=== PATIENT | female | born 1970 | race African-American/Black ===

== ENCOUNTER 2017-09-07 18:51 | Inpatient (IN) | payer MEDICAID ==
[~2017-09-07] VITALS: Ht 162.6 cm; Wt 66.8 kg
[~2017-09-07 18:51] MED LIST: MACR100 PO; OLAN10TA3 PO; SERT100T12 PO
[2017-09-07 20:51] LABS: EOSINOPHILS % (AUTO) 1.7 % (1.0-6.0); HEMOGLOBIN 12.9 g/dL (12.0-16.0); LYMPHOCYTES # (AUTO) 1.5 K/uL (1.0-4.8); LYMPHOCYTES % (AUTO) 23.3 % (22.0-44.0); MEAN CORPUSCULAR HEMOGLOBIN 31.8 pg (26.0-34.0); MEAN CORPUSCULAR HGB CONC 33.8 G/dL (31.0-37.0); MEAN CORPUSCULAR VOLUME 94 fL (80-100); MONOCYTES # (AUTO) 0.6 K/uL (0.1-1.0); MONOCYTES % (AUTO) 9.4 % (2.0-9.0); NEUTROPHILS # (AUTO) 4.1 K/uL (1.8-7.7); NEUTROPHILS % (AUTO) 64.6 % (40.0-70.0); PLATELET COUNT (AUTO) 431 K/uL (150-450); RED BLOOD CELL COUNT(AUTO) 4.05 MIL/uL (4.00-5.20)
[2017-09-07 21:10] LABS: ANION GAP 12 mmol/L (8-16); CALCIUM, TOTAL 9.3 mg/dL (8.8-10.5); CARBON DIOXIDE 28 mmol/L (22-29); CHLORIDE 101 mmol/L (98-107); CREATININE 0.65 mg/dL (0.60-1.30); GLOMERULAR FILTR. RATE CALC > 60 mL/min (>60); GLUCOSE,RANDOM 112 mg/dL (70-110); POTASSIUM 3.9 mmol/L (3.5-5.1); SODIUM SERUM 141 mmol/L (136-145); UREA NITROGEN, BLOOD 4 mg/dL (7-18)
[2017-09-07 21:11] LABS: AMPHET/METH SCREEN,URINE POSITIVE (NEGATIVE); BARBITURATE SCREEN, URINE NEGATIVE (NEGATIVE); BENZODIAZEPINES SCREEN,URINE NEGATIVE (NEGATIVE); CANNABINOID SCREEN,URINE POSITIVE (NEGATIVE); COCAINE SCREEN,URINE NEGATIVE (NEGATIVE); METHADONE SCREEN, URINE NEGATIVE (NEGATIVE); OPIATE SCREEN,URINE NEGATIVE (NEGATIVE)
[2017-09-07 21:19] LABS: ALANINE AMINOTRANSFERASE 21 U/L (12-78); ALKALINE PHOSPHATASE 76 U/L (46-116); ASPARTATE AMINOTRANSFERASE 14 U/L (15-37); BILIRUBIN,TOTAL 0.1 mg/dL (0.1-1.0); TOTAL PROTEIN, SERUM 7.8 g/dL (6.4-8.2)
[2017-09-07 21:23] LABS: PHENCYCLIDINE SCREEN,URINE NEGATIVE (NEGATIVE)
[2017-09-07] MEDS ORDERED: ZOLPIDEM TARTRATE 10 MG TABLET PO PRN (22:15)
[2017-09-07] MEDS ORDERED: ACETAMINOPHEN 500 MG TABLET PO ONE (23:00)
[2017-09-07] MEDS ORDERED: LORazepam 2 MG TABLET PO ONE (23:00)
[2017-09-07] MEDS ORDERED: ASPIRIN 81 MG CHEWABLE TABLET PO ONE (23:00)
[2017-09-08 01:44] VITALS: BP 134/88
[2017-09-08] MEDS ORDERED: MAGNESIUM HYDROXIDE SUSPENSION 30 ML UDCUP PO PRN (07:30)
[2017-09-08] MEDS ORDERED: ALBUTEROL SULFATE HFA 90 MCG/PUFF 8 GM INHALER IH PRN (07:30)
[2017-09-08] MEDS ORDERED: LOPERAMIDE HCL 2 MG CAPSULE PO PRN (07:30)
[2017-09-08] MEDS ORDERED: CloNIDine HCL 0.1 MG TABLET PO PRN (07:30)
[2017-09-08] MEDS ORDERED: PETROLATUM,WHITE 71 GM JELLY TP PRN (07:30)
[2017-09-08] MEDS ORDERED: ONDANSETRON HCL 4 MG TABLET PO PRN (07:30)
[2017-09-08] MEDS ORDERED: MAG HYDROX/AL HYDROX/SIMETH ES 30 ML SUSPENSION UDCUP PO PRN (07:30)
[2017-09-08] MEDS ORDERED: ACETAMINOPHEN 325 MG TABLET PO PRN (07:30)
[2017-09-08] MEDS ORDERED: BENZOCAINE/MENTHOL LOZENGE [8 LOZENGES/PACKET] MM PRN (07:30)
[2017-09-08] MEDS ORDERED: BACITRACIN 28.4 GM OINTMENT TP PRN (07:30)
[2017-09-08 08:05] VITALS: BP 120/86
[2017-09-08] MEDS: LORazepam 2 MG TABLET PO PRN ×2 (09:20→15:09)
[2017-09-08 10:20] LABS: BILIRUBIN,URINE NEGATIVE (NEGATIVE); GLUCOSE, URINE (UA) NEGATIVE (NEGATIVE); KETONES,URINE NEGATIVE (NEGATIVE); LEUKOCYTE ESTERASE ,URINE SMALL (NEGATIVE); NITRATE,URINE NEGATIVE (NEGATIVE); OCCULT BLOOD,URINE NEGATIVE (NEGATIVE); PROTEIN,URINE NEGATIVE (NEGATIVE); UROBILINOGEN,URINE 0.2 mg/dL (<=1.0)
[2017-09-08 11:18] LABS: APPEARANCE,URINE HAZY (CLEAR)
[2017-09-08 11:20] LABS: RBC,URINE None Seen /HPF (0-2)
[2017-09-08 11:21] LABS: BACTERIA,URINE Few /HPF (None Seen); SQUAMOUS EPITHELIAL CELL,UR Few /LPF (None Seen)
[2017-09-08] MEDS: IBUPROFEN 600 MG TABLET PO PRN (16:54)
[2017-09-08 16:55] VITALS: BP 121/72
[2017-09-08] MEDS: OLANZapine 10 MG TABLET PO SCH (21:38)
[2017-09-09] MEDS: LORazepam 2 MG TABLET PO PRN ×2 (08:05→17:17)
[2017-09-09] MEDS: SERTRALINE HCL 50 MG TABLET PO SCH (08:06)
[2017-09-09] MEDS: NICOTINE 14 MG/24 HOUR PATCH TD SCH ×3 (09:00→10:49)
[2017-09-09 10:10] VITALS: BP 131/84
[2017-09-09 16:14] VITALS: BP 97/59
[2017-09-09] MEDS: IBUPROFEN 600 MG TABLET PO PRN (17:18)
[2017-09-09] MEDS: OLANZapine 10 MG TABLET PO SCH (20:26)
[2017-09-10] MEDS: NICOTINE 14 MG/24 HOUR PATCH TD SCH (09:22)
[2017-09-10] MEDS: SERTRALINE HCL 50 MG TABLET PO SCH (09:24)
[2017-09-10] MEDS: LORazepam 2 MG TABLET PO PRN ×2 (09:26→17:29)
[2017-09-10 09:54] VITALS: BP 112/58
[2017-09-10 17:30] VITALS: BP 113/65
[2017-09-10] MEDS: IBUPROFEN 600 MG TABLET PO PRN (17:30)
[2017-09-10] MEDS: OLANZapine 10 MG TABLET PO SCH (20:53)
[2017-09-11 09:00] VITALS: BP 111/60
[2017-09-11] MEDS: HALOPERIDOL 5 MG TABLET PO PRN ×2 (09:01→16:32)
[2017-09-11] MEDS: SERTRALINE HCL 50 MG TABLET PO SCH (09:01)
[2017-09-11] MEDS: LORazepam 2 MG TABLET PO PRN ×2 (09:01→16:32)
[2017-09-11] MEDS: NICOTINE 14 MG/24 HOUR PATCH TD SCH (09:03)
[2017-09-11 12:04] VITALS: BP 101/62
[2017-09-11] MEDS: IBUPROFEN 600 MG TABLET PO PRN (12:06)
[2017-09-11 13:06] VITALS: BP 110/64
[2017-09-11 19:06] VITALS: BP 110/69
[2017-09-11] MEDS: OLANZapine 10 MG TABLET PO SCH (21:37)
[2017-09-12 08:00] VITALS: BP 97/58
[2017-09-12 10:10] VITALS: BP 118/82
[2017-09-12] MEDS: HALOPERIDOL 5 MG TABLET PO PRN ×2 (10:11→16:52)
[2017-09-12] MEDS: IBUPROFEN 600 MG TABLET PO PRN (10:11)
[2017-09-12] MEDS: SERTRALINE HCL 100 MG TABLET PO SCH (10:11)
[2017-09-12] MEDS: LORazepam 2 MG TABLET PO PRN ×2 (10:11→16:52)
[2017-09-12] MEDS: NICOTINE 14 MG/24 HOUR PATCH TD SCH (10:14)
[2017-09-12] MEDS: AMOXICILLIN TRIHYDRATE 250 MG CAPSULE PO SCH ×3 (12:32→23:54)
[2017-09-12 18:23] VITALS: BP 105/62
[2017-09-12] MEDS: OLANZapine 10 MG TABLET PO SCH (20:48)
[2017-09-13 09:05] VITALS: BP 104/64
[2017-09-13] MEDS: SERTRALINE HCL 100 MG TABLET PO SCH (09:05)
[2017-09-13] MEDS: AMOXICILLIN TRIHYDRATE 250 MG CAPSULE PO SCH ×2 (09:05→16:30)
[2017-09-13] MEDS: IBUPROFEN 600 MG TABLET PO PRN ×2 (09:06→16:31)
[2017-09-13] MEDS: NICOTINE 14 MG/24 HOUR PATCH TD SCH (09:06)
[2017-09-13] MEDS: HALOPERIDOL 5 MG TABLET PO PRN ×2 (09:06→16:30)
[2017-09-13] MEDS: LORazepam 2 MG TABLET PO PRN ×2 (09:06→16:31)
[2017-09-13 10:00] VITALS: BP 104/64
[2017-09-13 16:46] VITALS: BP 135/80
[2017-09-13] MEDS: OLANZapine 10 MG TABLET PO SCH (20:55)
[2017-09-14] MEDS: AMOXICILLIN TRIHYDRATE 250 MG CAPSULE PO SCH ×2 (00:01→08:57)
[2017-09-14 08:55] VITALS: BP 117/82
[2017-09-14] MEDS: SERTRALINE HCL 100 MG TABLET PO SCH (08:57)
[2017-09-14] MEDS: HALOPERIDOL 5 MG TABLET PO PRN (08:58)
[2017-09-14] MEDS: IBUPROFEN 600 MG TABLET PO PRN (08:58)
[2017-09-14] MEDS: LORazepam 2 MG TABLET PO PRN (08:58)
[2017-09-14] MEDS: NICOTINE 14 MG/24 HOUR PATCH TD SCH (08:59)
[2017-09-14] MEDS ORDERED: SERT100T12 PO (12:24)
[2017-09-14] MEDS ORDERED: AMOX250C4 PO ×2 (12:25→12:29)
[2017-09-14] MEDS ORDERED: CARB15DR47 OT (12:28)
[2017-09-17] MEDS ORDERED: CARBAMIDE PEROXIDE 6.5% 15 ML OTIC SOLUTION AS SCH (09:00)
== END 2017-09-14 13:45 | disposition home or self-care (01) | DRG 750 ==
LOC: EMS 18:54 → 3EI 22:41
PROVIDERS: ADMIT Psychiatry & Neurology Psychiatry; ATTEND Psychiatry & Neurology Psychiatry
DX: F25.1 Schizoaffective disorder, depressive type (principal); F15.20 Other stimulant dependence, uncomplicated; F41.9 Anxiety disorder, unspecified; G47.00 Insomnia, unspecified; F17.210 Nicotine dependence, cigarettes, uncomplicated; F12.20 Cannabis dependence, uncomplicated; F10.20 Alcohol dependence, uncomplicated; Z79.899 Other long term (current) drug therapy
CPT/HCPCS: 87081; 87086; 93005; 99285; 99406; G0480

== ENCOUNTER 2017-11-02 06:05 | Emergency (ER) | payer MEDICAID ==
[~2017-11-02] VITALS: Ht 160 cm; Wt 68.2 kg
[~2017-11-02 06:05] MED LIST changes: +AMOX250C4 PO; +CARB15DR47 OT; -MACR100 PO
[2017-11-02] MEDS ORDERED: FLUO-191 PO (06:11)
[2017-11-02 06:34] VITALS: BP 137/87
== END 2017-11-02 06:52 | disposition home or self-care (01) ==
LOC: EMS 06:06
DX: F10.239 Alcohol dependence with withdrawal, unspecified (principal); F17.210 Nicotine dependence, cigarettes, uncomplicated; Y90.9 Presence of alcohol in blood, level not specified
CPT/HCPCS: 99283; 99406

== ENCOUNTER 2019-03-10 10:36 | Emergency (ER) | payer MEDICAID ==
[~2019-03-10] VITALS: Ht 157.5 cm; Wt 100.0 kg
[~2019-03-10 10:36] MED LIST changes: -AMOX250C4 PO; -CARB15DR47 OT; +FLUO-191 PO; -SERT100T12 PO
[2019-03-10] MEDS ORDERED: SERT100T12 PO (10:42)
[2019-03-10] MEDS ORDERED: SODIUM CHLORIDE 0.9% 1,000 ML IV ONE (11:30)
[2019-03-10] MEDS ORDERED: MORPHINE SULFATE 4 MG/ML SYRINGE IVP ONE (11:30)
[2019-03-10] MEDS ORDERED: AMPICILLIN SODIUM/SULBACTAM NA 3 GM in SODIUM CHLORIDE 0.9% 100 ML IV ONE (11:30)
[2019-03-10] MEDS ORDERED: IOVERSOL 350 MG/ML 150 ML VIAL ONE (11:51)
[2019-03-10 12:00] LABS: BASOPHILS % (AUTO) 1.3 % (0.0-2.0); EOSINOPHILS % (AUTO) 3.2 % (1.0-6.0); HEMOGLOBIN 11.6 g/dL (12.0-16.0); LYMPHOCYTES # (AUTO) 1.8 K/uL (1.0-4.8); LYMPHOCYTES % (AUTO) 30.3 % (22.0-44.0); MEAN CORPUSCULAR HEMOGLOBIN 28.9 pg (26.0-34.0); MEAN CORPUSCULAR HGB CONC 32.1 G/dL (31.0-37.0); MEAN CORPUSCULAR VOLUME 90 fL (80-100); MONOCYTES # (AUTO) 0.5 K/uL (0.1-1.0); MONOCYTES % (AUTO) 8.8 % (2.0-9.0); NEUTROPHILS # (AUTO) 3.3 K/uL (1.8-7.7); NEUTROPHILS % (AUTO) 56.4 % (40.0-70.0); PLATELET COUNT (AUTO) 368 K/uL (150-450)
[2019-03-10 12:13] LABS: ANION GAP 8 mmol/L (8-16); CALCIUM, TOTAL 9.2 mg/dL (8.8-10.5); CARBON DIOXIDE 26 mmol/L (22-29); CHLORIDE 104 mmol/L (98-107); CREATININE 0.87 mg/dL (0.60-1.30); GLOMERULAR FILTR. RATE CALC > 60 mL/min (>60); GLUCOSE,RANDOM 81 mg/dL (70-110); SODIUM SERUM 138 mmol/L (136-145); UREA NITROGEN, BLOOD 5 mg/dL (7-18)
[2019-03-10 12:29] LABS: HCG,QUANTITATIVE < 1 mIU/mL (0-6)
[2019-03-10 14:16] VITALS: BP 121/80
== END 2019-03-10 14:19 | disposition home or self-care (01) ==
LOC: EMS 10:38
DX: L03.211 Cellulitis of face (principal); F41.9 Anxiety disorder, unspecified; F31.9 Bipolar disorder, unspecified; F20.9 Schizophrenia, unspecified; F17.210 Nicotine dependence, cigarettes, uncomplicated
CPT/HCPCS: 36415; 70487; 80048; 84702; 85025; 96365; 96375; 99284; 99406; J0295; J2270; J7030; J7050; Q9967

== ENCOUNTER 2019-07-07 08:00 | Emergency (ER) | payer MEDICAID ==
[~2019-07-07] VITALS: Ht 162.6 cm; Wt 77.0 kg
[~2019-07-07 08:00] MED LIST changes: -FLUO-191 PO; +SERT100T12 PO
[2019-07-07] MEDS ORDERED: RANITIDINE HCL 150 MG TABLET PO ONE (11:00)
[2019-07-07] MEDS ORDERED: BACITRACIN 0.9 GM PACKET OINTMENT TP ONE (11:00)
[2019-07-07] MEDS ORDERED: ACETAMINOPHEN 500 MG TABLET PO ONE (11:00)
[2019-07-07 11:15] VITALS: BP 131/84
== END 2019-07-07 11:25 | disposition home or self-care (01) ==
LOC: EMS 08:01
DX: S00.81XA Abrasion of other part of head, initial encounter (principal); I88.8 Other nonspecific lymphadenitis; G47.00 Insomnia, unspecified; F31.9 Bipolar disorder, unspecified; F41.9 Anxiety disorder, unspecified; F20.9 Schizophrenia, unspecified; F17.210 Nicotine dependence, cigarettes, uncomplicated; Z76.0 Encounter for issue of repeat prescription; Z79.899 Other long term (current) drug therapy; X58.XXXA Exposure to other specified factors, initial encounter; Y93.89 Activity, other specified; Y92.89 Other specified places as the place of occurrence of the external cause; Y99.8 Other external cause status
CPT/HCPCS: 99406

== ENCOUNTER 2019-08-10 08:10 | Emergency (ER) | payer MEDICAID ==
[~2019-08-10] VITALS: Ht 157.5 cm; Wt 72.7 kg
[2019-08-10 08:12] VITALS: BP 154/98
[2019-08-10] MEDS ORDERED: KETOROLAC TROMETHAMINE 30 MG/ML VIAL IM ONE (08:30)
[2019-08-10] MEDS ORDERED: HYDROCODONE/ACETAMINOPHEN 5-325 MG TABLET PO ONE (08:30)
== END 2019-08-10 09:02 | disposition home or self-care (01) ==
LOC: EMS 08:10
DX: K08.89 Other specified disorders of teeth and supporting structures (principal); G47.00 Insomnia, unspecified; F41.9 Anxiety disorder, unspecified; F31.9 Bipolar disorder, unspecified; F20.9 Schizophrenia, unspecified; Z79.899 Other long term (current) drug therapy
CPT/HCPCS: 96372; 99283; J1885

== ENCOUNTER 2019-11-08 03:41 | Emergency (ER) | payer MEDICAID ==
[~2019-11-08] VITALS: Ht 152.4 cm; Wt 68.2 kg
[2019-11-08] MEDS ORDERED: LORazepam 2 MG/ML VIAL IVP ONE (04:30)
[2019-11-08 05:05] LABS: BASOPHILS % (AUTO) 0.8 % (0.0-2.0); EOSINOPHILS % (AUTO) 1.5 % (1.0-6.0); HEMATOCRIT 37.6 % (36-46); HEMOGLOBIN 12.7 g/dL (12.0-16.0); LYMPHOCYTES % (AUTO) 17.7 % (22.0-44.0); MEAN CORPUSCULAR HEMOGLOBIN 32.4 pg (26.0-34.0); MEAN CORPUSCULAR HGB CONC 33.9 G/dL (31.0-37.0); MEAN CORPUSCULAR VOLUME 96 fL (80-100); MONOCYTES # (AUTO) 0.5 K/uL (0.1-1.0); MONOCYTES % (AUTO) 9.1 % (2.0-9.0); NEUTROPHILS # (AUTO) 3.9 K/uL (1.8-7.7); NEUTROPHILS % (AUTO) 70.9 % (40.0-70.0); PLATELET COUNT (AUTO) 364 K/uL (150-450); RED BLOOD CELL COUNT(AUTO) 3.92 MIL/uL (4.00-5.20); RED CELL DISTRIBUTION WIDTH 15.3 % (11.5-14.5)
[2019-11-08 05:16] LABS: ANION GAP 7 mmol/L (8-16); CALCIUM, TOTAL 8.9 mg/dL (8.8-10.5); CARBON DIOXIDE 30 mmol/L (22-29); CHLORIDE 102 mmol/L (98-107); CREATININE 0.83 mg/dL (0.60-1.30); GLOMERULAR FILTR. RATE CALC > 60 mL/min (>60); GLUCOSE,RANDOM 106 mg/dL (70-110); POTASSIUM 3.3 mmol/L (3.5-5.1); SODIUM SERUM 139 mmol/L (136-145); UREA NITROGEN, BLOOD 10 mg/dL (7-18)
[2019-11-08 05:28] LABS: ALANINE AMINOTRANSFERASE 58 U/L (12-78); ALBUMIN 3.6 g/dL (3.4-5.0); ALKALINE PHOSPHATASE 95 U/L (46-116); ASPARTATE AMINOTRANSFERASE 64 U/L (15-37); BILIRUBIN,TOTAL 0.7 mg/dL (0.1-1.0); HCG,QUANTITATIVE < 1 mIU/mL (0-6); TOTAL PROTEIN, SERUM 7.4 g/dL (6.4-8.2)
[2019-11-08 06:00] VITALS: BP 135/92
== END 2019-11-08 06:53 | disposition home or self-care (01) ==
LOC: EMS 03:42
DX: R07.89 Other chest pain (principal); R06.02 Shortness of breath; F41.9 Anxiety disorder, unspecified; F20.9 Schizophrenia, unspecified; F31.9 Bipolar disorder, unspecified; F17.210 Nicotine dependence, cigarettes, uncomplicated; F19.90 Other psychoactive substance use, unspecified, uncomplicated
CPT/HCPCS: 36415; 71045; 80053; 84484; 84702; 85025; 85379; 93005; 96374; 99285; 99406; G0480; J2060

== ENCOUNTER 2019-12-11 10:49 | Emergency (ER) | payer MEDICAID ==
[~2019-12-11] VITALS: Ht 162.6 cm; Wt 56.8 kg
[2019-12-11 11:42] LABS: BASOPHILS % (AUTO) 1.1 % (0.0-2.0); EOSINOPHILS % (AUTO) 2.2 % (1.0-6.0); HEMATOCRIT 36.7 % (36-46); HEMOGLOBIN 12.4 g/dL (12.0-16.0); LYMPHOCYTES # (AUTO) 1.6 K/uL (1.0-4.8); LYMPHOCYTES % (AUTO) 34.9 % (22.0-44.0); MEAN CORPUSCULAR HEMOGLOBIN 33.2 pg (26.0-34.0); MEAN CORPUSCULAR HGB CONC 33.8 G/dL (31.0-37.0); MEAN CORPUSCULAR VOLUME 98 fL (80-100); MONOCYTES # (AUTO) 0.4 K/uL (0.1-1.0); NEUTROPHILS # (AUTO) 2.4 K/uL (1.8-7.7); NEUTROPHILS % (AUTO) 52.8 % (40.0-70.0); PLATELET COUNT (AUTO) 435 K/uL (150-450); RED BLOOD CELL COUNT(AUTO) 3.74 MIL/uL (4.00-5.20); RED CELL DISTRIBUTION WIDTH 15.2 % (11.5-14.5)
[2019-12-11 11:55] LABS: D-DIMER 0.71 mg/L FEU (0.00-0.50); PROTHROMBIN TIME 10.5 SEC (9.4-11.6)
[2019-12-11 12:07] LABS: B-TYPE NATRIURETIC PEPTIDE 5 pg/mL (0-100)
[2019-12-11] MEDS ORDERED: LORazepam 2 MG/ML VIAL IVP ONE (12:15)
[2019-12-11 12:19] LABS: ALANINE AMINOTRANSFERASE 28 U/L (12-78); ALBUMIN 3.3 g/dL (3.4-5.0); ALKALINE PHOSPHATASE 92 U/L (46-116); ANION GAP 11 mmol/L (8-16); ASPARTATE AMINOTRANSFERASE 24 U/L (15-37); BILIRUBIN,TOTAL 0.3 mg/dL (0.1-1.0); CALCIUM, TOTAL 8.1 mg/dL (8.8-10.5); CARBON DIOXIDE 27 mmol/L (22-29); CHLORIDE 105 mmol/L (98-107); GLOMERULAR FILTR. RATE CALC > 60 mL/min (>60); GLUCOSE,RANDOM 111 mg/dL (70-110); HCG,QUANTITATIVE < 1 mIU/mL (0-6); SODIUM SERUM 143 mmol/L (136-145); UREA NITROGEN, BLOOD 6 mg/dL (7-18)
[2019-12-11] MEDS ORDERED: IOVERSOL 350 MG/ML 100 ML VIAL ONE (12:27)
[2019-12-11] MEDS ORDERED: SODIUM CHLORIDE 0.9% 100 ML ONE (12:27)
[2019-12-11 13:13] LABS: APPEARANCE,URINE CLEAR (CLEAR); BILIRUBIN,URINE NEGATIVE (NEGATIVE); GLUCOSE, URINE (UA) NEGATIVE (NEGATIVE); KETONES,URINE NEGATIVE (NEGATIVE); LEUKOCYTE ESTERASE ,URINE NEGATIVE (NEGATIVE); NITRATE,URINE NEGATIVE (NEGATIVE); OCCULT BLOOD,URINE NEGATIVE (NEGATIVE); PH,URINE 6.5 (5.0-8.0); PROTEIN,URINE NEGATIVE (NEGATIVE)
[2019-12-11 13:23] VITALS: BP 138/80
== END 2019-12-11 13:45 | disposition home or self-care (01) ==
LOC: EMS 10:54
DX: R07.9 Chest pain, unspecified (principal); F41.9 Anxiety disorder, unspecified; F31.9 Bipolar disorder, unspecified; F20.9 Schizophrenia, unspecified; F17.210 Nicotine dependence, cigarettes, uncomplicated; F19.90 Other psychoactive substance use, unspecified, uncomplicated; Z03.818 Encounter for observation for suspected exposure to other biological agents ruled out
CPT/HCPCS: 36415; 71045; 71275; 80053; 81003; 83880; 84484; 84702; 85025; 85379; 85610; 93005; 96374; 99285; J2060; J7050; Q9967; U0003

== ENCOUNTER 2019-12-18 23:28 | Inpatient (IN) | payer MEDICAID ==
[~2019-12-18] VITALS: Ht 157.5 cm; Wt 70.3 kg
[2019-12-19] VITALS (8 sets, daily range): BP systolic 97–138; BP diastolic 58–93
[2019-12-19] MEDS ORDERED: CALCIUM GLUCONATE 100 MG/ML 10 ML IVP ONE
[2019-12-19 00:36] LABS: BASOPHILS % (AUTO) 0.8 % (0.0-2.0); EOSINOPHILS % (AUTO) 0.3 % (1.0-6.0); HEMATOCRIT 38.8 % (36-46); LYMPHOCYTES # (AUTO) 1.4 K/uL (1.0-4.8); LYMPHOCYTES % (AUTO) 21.2 % (22.0-44.0); MEAN CORPUSCULAR HEMOGLOBIN 32.7 pg (26.0-34.0); MEAN CORPUSCULAR HGB CONC 33.5 G/dL (31.0-37.0); MEAN CORPUSCULAR VOLUME 98 fL (80-100); MONOCYTES # (AUTO) 0.8 K/uL (0.1-1.0); MONOCYTES % (AUTO) 11.3 % (2.0-9.0); NEUTROPHILS # (AUTO) 4.5 K/uL (1.8-7.7); NEUTROPHILS % (AUTO) 66.4 % (40.0-70.0); PLATELET COUNT (AUTO) 340 K/uL (150-450); RED BLOOD CELL COUNT(AUTO) 3.97 MIL/uL (4.00-5.20); RED CELL DISTRIBUTION WIDTH 15.7 % (11.5-14.5)
[2019-12-19 00:41] LABS: INR 1.1 (0.9-1.1); PROTHROMBIN TIME 11.5 SEC (9.4-11.6)
[2019-12-19 00:45] LABS: ANION GAP 15 mmol/L (8-16); CARBON DIOXIDE 24 mmol/L (22-29); CHLORIDE 102 mmol/L (98-107); CREATININE 0.78 mg/dL (0.60-1.30); GLOMERULAR FILTR. RATE CALC > 60 mL/min (>60); GLUCOSE,RANDOM 91 mg/dL (70-110); POTASSIUM 3.4 mmol/L (3.5-5.1); SODIUM SERUM 141 mmol/L (136-145); UREA NITROGEN, BLOOD 8 mg/dL (7-18)
[2019-12-19 00:49] LABS: APPEARANCE,URINE CLEAR (CLEAR); GLUCOSE, URINE (UA) NEGATIVE (NEGATIVE); KETONES,URINE TRACE mg/dL (NEGATIVE); LEUKOCYTE ESTERASE ,URINE NEGATIVE (NEGATIVE); NITRATE,URINE NEGATIVE (NEGATIVE); OCCULT BLOOD,URINE NEGATIVE (NEGATIVE); PH,URINE 5.5 (5.0-8.0); PROTEIN,URINE POS 1+ (NEGATIVE); UROBILINOGEN,URINE 0.2 mg/dL (<=1.0)
[2019-12-19 00:50] LABS: BILIRUBIN,URINE PRELIM. POSITIVE (NEGATIVE)
[2019-12-19 00:54] LABS: AMPHET/METH SCREEN,URINE POSITIVE (NEGATIVE); BARBITURATE SCREEN, URINE NEGATIVE (NEGATIVE); BENZODIAZEPINES SCREEN,URINE POSITIVE (NEGATIVE); CANNABINOID SCREEN,URINE POSITIVE (NEGATIVE); COCAINE SCREEN,URINE NEGATIVE (NEGATIVE); METHADONE SCREEN, URINE NEGATIVE (NEGATIVE); OPIATE SCREEN,URINE NEGATIVE (NEGATIVE)
[2019-12-19 00:59] LABS: PHENCYCLIDINE SCREEN,URINE NEGATIVE (NEGATIVE)
[2019-12-19 01:04] LABS: SALICYLATE < 2.8 mg/dL (2.8-20.0)
[2019-12-19 01:09] LABS: ALANINE AMINOTRANSFERASE 33 U/L (12-78); ALBUMIN 3.8 g/dL (3.4-5.0); ALKALINE PHOSPHATASE 96 U/L (46-116); ASPARTATE AMINOTRANSFERASE 35 U/L (15-37); BILIRUBIN,TOTAL 0.3 mg/dL (0.1-1.0); CREATINE KINASE, TOTAL ONLY 325 U/L (26-192); TOTAL PROTEIN, SERUM 7.8 g/dL (6.4-8.2)
[2019-12-19 01:10] LABS: ACETAMINOPHEN < 2 mcg/mL (10-30)
[2019-12-19] MEDS ORDERED: ZOLPIDEM TARTRATE 10 MG TABLET PO PRN (02:00)
[2019-12-19] MEDS ORDERED: HALOPERIDOL 5 MG TABLET PO PRN (02:00)
[2019-12-19] MEDS ORDERED: LORazepam 2 MG TABLET PO PRN ×2 (02:00→11:15)
[2019-12-19] MEDS ORDERED: LORazepam 2 MG TABLET PO ONE (02:15)
[2019-12-19] MEDS ORDERED: DiphenhydrAMINE HCL 25 MG CAPSULE PO ONE (02:15)
[2019-12-19] MEDS ORDERED: HALOPERIDOL 5 MG TABLET PO ONE (02:15)
[2019-12-19] MEDS ORDERED: LORazepam 2 MG/ML VIAL IVP ONE (02:30)
[2019-12-19] MEDS ORDERED: ACETAMINOPHEN 325 MG TABLET PO PRN (07:30)
[2019-12-19] MEDS ORDERED: MAGNESIUM HYDROXIDE SUSPENSION 30 ML UDCUP PO PRN (07:30)
[2019-12-19] MEDS ORDERED: ALBUTEROL SULFATE HFA 90 MCG/PUFF 8 GM INHALER IH PRN (07:30)
[2019-12-19] MEDS ORDERED: CloNIDine HCL 0.1 MG TABLET PO PRN (07:30)
[2019-12-19] MEDS ORDERED: IBUPROFEN 400 MG TABLET PO PRN (07:30)
[2019-12-19] MEDS ORDERED: ONDANSETRON HCL 4 MG TABLET PO PRN (07:30)
[2019-12-19] MEDS ORDERED: LOPERAMIDE HCL 2 MG CAPSULE PO PRN (07:30)
[2019-12-19] MEDS ORDERED: PETROLATUM,WHITE 28 GM JELLY TP PRN (07:30)
[2019-12-19] MEDS ORDERED: GuaiFENesin/D-METHORPHAN [SUGAR-FREE] 200-20MG/10 ML SYRUP UDCUP PO PRN (07:30)
[2019-12-19] MEDS ORDERED: NICOTINE 14 MG/24 HOUR PATCH TD PRN (07:30)
[2019-12-19] MEDS ORDERED: DOCUSATE SODIUM 100 MG CAPSULE PO PRN (07:30)
[2019-12-19] MEDS ORDERED: MAG HYDROX/AL HYDROX/SIMETH ES 30 ML SUSPENSION UDCUP PO PRN (07:30)
[2019-12-19] MEDS ORDERED: POTASSIUM CHLORIDE 20 MEQ ER TABLET PO ONE (09:30)
[2019-12-19] MEDS ORDERED: CYANOCOBALAMIN 1,000 MCG/ML VIAL IM ONE (11:15)
[2019-12-19] MEDS: MULTIVITAMINS WITH MINERALS, THERAPEUTIC TABLET PO SCH (12:30)
[2019-12-19] MEDS: FOLIC ACID 1 MG TABLET PO SCH (12:30)
[2019-12-19] MEDS: SERTRALINE HCL 100 MG TABLET PO SCH (12:31)
[2019-12-19] MEDS: THIAMINE 100 MG TABLET PO SCH (16:54)
[2019-12-19] MEDS ORDERED: QUEtiapine FUMARATE 200 MG TABLET PO SCH (21:00)
[2019-12-20] VITALS (7 sets, daily range): BP systolic 97–128; BP diastolic 48–77
[2019-12-20] MEDS ORDERED: LORazepam 2 MG TABLET PO PRN (07:00)
[2019-12-20] MEDS: MULTIVITAMINS WITH MINERALS, THERAPEUTIC TABLET PO SCH (08:55)
[2019-12-20] MEDS: FOLIC ACID 1 MG TABLET PO SCH (08:55)
[2019-12-20] MEDS: THIAMINE 100 MG TABLET PO SCH ×2 (08:55→16:30)
[2019-12-20] MEDS: LORazepam 2 MG TABLET PO SCH ×4 (08:55→20:16)
[2019-12-20] MEDS: SERTRALINE HCL 100 MG TABLET PO SCH (08:55)
[2019-12-20 09:16] LABS: CHOL/HDL RATIO 3.1 (3.9-5.7); POTASSIUM 3.5 mmol/L (3.5-5.1)
[2019-12-20] MEDS: QUEtiapine FUMARATE 300 MG TABLET PO SCH (20:16)
[2019-12-21 06:35] VITALS: BP 101/60
[2019-12-21 08:00] VITALS: BP 99/64
[2019-12-21] MEDS: LORazepam 2 MG TABLET PO SCH ×4 (08:56→20:48)
[2019-12-21] MEDS: FOLIC ACID 1 MG TABLET PO SCH (08:56)
[2019-12-21] MEDS: THIAMINE 100 MG TABLET PO SCH ×2 (08:56→16:30)
[2019-12-21] MEDS: MULTIVITAMINS WITH MINERALS, THERAPEUTIC TABLET PO SCH (08:56)
[2019-12-21] MEDS: SERTRALINE HCL 100 MG TABLET PO SCH (08:56)
[2019-12-21 09:33] VITALS: BP 111/64
[2019-12-21 16:12] VITALS: BP 116/75
[2019-12-21 16:23] VITALS: BP 116/65
[2019-12-21] MEDS: RisperiDONE 2 MG TABLET PO SCH (16:29)
[2019-12-21] MEDS: QUEtiapine FUMARATE 300 MG TABLET PO SCH (20:48)
[2019-12-22 01:30] VITALS: BP 110/61
[2019-12-22 04:12] VITALS: BP 110/61
[2019-12-22] MEDS ORDERED: LORazepam 1 MG TABLET PO PRN (07:00)
[2019-12-22 08:21] VITALS: BP 114/63
[2019-12-22] MEDS ORDERED: LORazepam 1 MG TABLET PO SCH (09:00)
[2019-12-22] MEDS: MULTIVITAMINS WITH MINERALS, THERAPEUTIC TABLET PO SCH (09:04)
[2019-12-22] MEDS: FOLIC ACID 1 MG TABLET PO SCH (09:04)
[2019-12-22] MEDS: SERTRALINE HCL 100 MG TABLET PO SCH (09:04)
[2019-12-22] MEDS: RisperiDONE 2 MG TABLET PO SCH (09:04)
[2019-12-22] MEDS: THIAMINE 100 MG TABLET PO SCH (09:05)
[2019-12-22] MEDS ORDERED: RISP2TAB23 PO (10:56)
[2019-12-22] MEDS ORDERED: SERT100T12 PO (10:56)
[2019-12-22] MEDS ORDERED: QUET300T2 PO (10:56)
[2019-12-23] MEDS ORDERED: LORazepam 1 MG TABLET PO PRN (07:00)
== END 2019-12-22 13:00 | disposition home or self-care (01) | DRG 750 ==
LOC: EMS 23:30 → B2S 12-19 01:57 → UNDOADMIN 12-19 01:57 → B2S 12-19 02:03
PROVIDERS: ADMIT Psychiatry & Neurology Child & Adolescent Psychiatry; ATTEND Psychiatry & Neurology Child & Adolescent Psychiatry
DX: F25.1 Schizoaffective disorder, depressive type (principal); E87.6 Hypokalemia; F10.20 Alcohol dependence, uncomplicated; F15.10 Other stimulant abuse, uncomplicated; F17.200 Nicotine dependence, unspecified, uncomplicated; T50.902A Poisoning by unspecified drugs, medicaments and biological substances, intentional self-harm, initial encounter; Z91.5 Personal history of self-harm; F41.9 Anxiety disorder, unspecified; G47.00 Insomnia, unspecified
CPT/HCPCS: 84132; 93005; 99291; G0480; G0481; J0610; J2060; J3420

== ENCOUNTER 2019-12-23 05:31 | Inpatient (IN) | payer MEDICAID ==
[~2019-12-23] VITALS: Ht 157.5 cm; Wt 71.4 kg
[~2019-12-23 05:31] MED LIST changes: -OLAN10TA3 PO; +QUET300T2 PO; +RISP2TAB23 PO
[2019-12-23 06:14] LABS: BASOPHILS % (AUTO) 0.6 % (0.0-2.0); EOSINOPHILS % (AUTO) 0.2 % (1.0-6.0); HEMATOCRIT 35.6 % (36-46); HEMOGLOBIN 12.1 g/dL (12.0-16.0); LYMPHOCYTES # (AUTO) 0.8 K/uL (1.0-4.8); LYMPHOCYTES % (AUTO) 10.6 % (22.0-44.0); MEAN CORPUSCULAR HEMOGLOBIN 33.5 pg (26.0-34.0); MEAN CORPUSCULAR VOLUME 99 fL (80-100); MONOCYTES # (AUTO) 0.6 K/uL (0.1-1.0); MONOCYTES % (AUTO) 7.6 % (2.0-9.0); NEUTROPHILS # (AUTO) 6.2 K/uL (1.8-7.7); PLATELET COUNT (AUTO) 336 K/uL (150-450); RED BLOOD CELL COUNT(AUTO) 3.62 MIL/uL (4.00-5.20); RED CELL DISTRIBUTION WIDTH 15.6 % (11.5-14.5)
[2019-12-23 06:28] LABS: ANION GAP 11 mmol/L (8-16); CALCIUM, TOTAL 8.8 mg/dL (8.8-10.5); CARBON DIOXIDE 26 mmol/L (22-29); CHLORIDE 100 mmol/L (98-107); CREATININE 0.73 mg/dL (0.60-1.30); GLOMERULAR FILTR. RATE CALC > 60 mL/min (>60); GLUCOSE,RANDOM 120 mg/dL (70-110); POTASSIUM 4.1 mmol/L (3.5-5.1); SODIUM SERUM 137 mmol/L (136-145); UREA NITROGEN, BLOOD 6 mg/dL (7-18)
[2019-12-23 06:42] LABS: ALANINE AMINOTRANSFERASE 30 U/L (12-78); ALBUMIN 3.7 g/dL (3.4-5.0); ALKALINE PHOSPHATASE 91 U/L (46-116); ASPARTATE AMINOTRANSFERASE 19 U/L (15-37); BILIRUBIN,TOTAL 0.2 mg/dL (0.1-1.0); HCG,QUANTITATIVE < 1 mIU/mL (0-6); TOTAL PROTEIN, SERUM 7.5 g/dL (6.4-8.2)
[2019-12-23 07:02] LABS: AMPHET/METH SCREEN,URINE POSITIVE (NEGATIVE); BARBITURATE SCREEN, URINE NEGATIVE (NEGATIVE); BENZODIAZEPINES SCREEN,URINE NEGATIVE (NEGATIVE); CANNABINOID SCREEN,URINE NEGATIVE (NEGATIVE); COCAINE SCREEN,URINE NEGATIVE (NEGATIVE); METHADONE SCREEN, URINE NEGATIVE (NEGATIVE); OPIATE SCREEN,URINE NEGATIVE (NEGATIVE)
[2019-12-23 07:07] LABS: PHENCYCLIDINE SCREEN,URINE NEGATIVE (NEGATIVE)
[2019-12-23] MEDS ORDERED: LORazepam 2 MG TABLET PO ONE (07:30)
[2019-12-23] MEDS ORDERED: NICOTINE 7 MG/24 HOUR PATCH TD ONE (08:15)
[2019-12-23] MEDS ORDERED: QUEtiapine FUMARATE 100 MG TABLET PO ONE (12:00)
[2019-12-23] MEDS ORDERED: ZOLPIDEM TARTRATE 10 MG TABLET PO PRN (13:00)
[2019-12-23] MEDS: LORazepam 2 MG TABLET PO PRN (16:00)
[2019-12-23 17:15] VITALS: BP 134/89
[2019-12-23] MEDS: QUEtiapine FUMARATE 300 MG TABLET PO SCH (20:31)
[2019-12-23] MEDS: RisperiDONE 2 MG TABLET PO SCH (20:31)
[2019-12-24] MEDS ORDERED: ALBUTEROL SULFATE HFA 90 MCG/PUFF 8 GM INHALER IH PRN
[2019-12-24] MEDS ORDERED: PETROLATUM,WHITE 28 GM JELLY TP PRN
[2019-12-24] MEDS ORDERED: MAGNESIUM HYDROXIDE SUSPENSION 30 ML UDCUP PO PRN
[2019-12-24] MEDS ORDERED: GuaiFENesin/D-METHORPHAN [SUGAR-FREE] 200-20MG/10 ML SYRUP UDCUP PO PRN
[2019-12-24] MEDS ORDERED: DOCUSATE SODIUM 100 MG CAPSULE PO PRN
[2019-12-24] MEDS ORDERED: ACETAMINOPHEN 325 MG TABLET PO PRN
[2019-12-24] MEDS ORDERED: MAG HYDROX/AL HYDROX/SIMETH ES 30 ML SUSPENSION UDCUP PO PRN
[2019-12-24] MEDS ORDERED: IBUPROFEN 400 MG TABLET PO PRN
[2019-12-24] MEDS ORDERED: CloNIDine HCL 0.1 MG TABLET PO PRN
[2019-12-24] MEDS ORDERED: ONDANSETRON HCL 4 MG TABLET PO PRN
[2019-12-24] MEDS ORDERED: LOPERAMIDE HCL 2 MG CAPSULE PO PRN
[2019-12-24 00:39] VITALS: BP 102/63
[2019-12-24 08:16] VITALS: BP 113/76
[2019-12-24] MEDS: RisperiDONE 2 MG TABLET PO SCH ×2 (08:27→16:34)
[2019-12-24] MEDS: LORazepam 2 MG TABLET PO PRN (09:17)
[2019-12-24 16:09] VITALS: BP 105/70
[2019-12-24] MEDS: QUEtiapine FUMARATE 300 MG TABLET PO SCH (20:35)
[2019-12-25 01:10] VITALS: BP 100/80
[2019-12-25] MEDS: LORazepam 2 MG TABLET PO PRN (06:42)
[2019-12-25 06:43] VITALS: BP 105/77
[2019-12-25 07:30] VITALS: BP 100/60
[2019-12-25 08:00] VITALS: BP 100/60
[2019-12-25] MEDS: RisperiDONE 2 MG TABLET PO SCH ×2 (08:36→16:21)
[2019-12-25] MEDS: HALOPERIDOL 5 MG TABLET PO PRN (13:27)
[2019-12-25 16:15] VITALS: BP 127/70
[2019-12-25] MEDS: QUEtiapine FUMARATE 300 MG TABLET PO SCH (20:36)
[2019-12-26 07:16] VITALS: BP 100/70
[2019-12-26] MEDS: RisperiDONE 2 MG TABLET PO SCH ×2 (08:00→16:03)
[2019-12-26 08:12] VITALS: BP 105/69
[2019-12-26] MEDS: LORazepam 2 MG TABLET PO PRN (09:30)
[2019-12-26] MEDS: NICOTINE 14 MG/24 HOUR PATCH TD PRN (10:25)
[2019-12-26] MEDS: HALOPERIDOL 5 MG TABLET PO PRN (13:53)
[2019-12-26 16:03] VITALS: BP 118/77
[2019-12-26] MEDS: QUEtiapine FUMARATE 300 MG TABLET PO SCH (20:10)
[2019-12-27 01:16] VITALS: BP 107/69
[2019-12-27] MEDS: HALOPERIDOL 5 MG TABLET PO PRN (06:57)
[2019-12-27] MEDS: RisperiDONE 2 MG TABLET PO SCH ×2 (08:11→16:39)
[2019-12-27] MEDS: NICOTINE 14 MG/24 HOUR PATCH TD PRN (09:28)
[2019-12-27 10:22] VITALS: BP 126/77
[2019-12-27] MEDS: LORazepam 2 MG TABLET PO PRN (12:23)
[2019-12-27] MEDS: QUEtiapine FUMARATE 300 MG TABLET PO SCH (20:11)
[2019-12-28 02:30] VITALS: BP 114/76
[2019-12-28] MEDS: RisperiDONE 2 MG TABLET PO SCH (08:04)
[2019-12-28 09:45] VITALS: BP 104/56
[2019-12-28 10:43] VITALS: BP 117/75
[2019-12-28] MEDS: LORazepam 2 MG TABLET PO PRN (10:44)
[2019-12-28 16:39] VITALS: BP 112/60
[2019-12-28] MEDS: OLANZapine 7.5 MG TABLET PO SCH (20:18)
[2019-12-29 00:21] VITALS: BP 117/70
[2019-12-29 08:16] VITALS: BP 105/60
[2019-12-29] MEDS: LORazepam 2 MG TABLET PO PRN (09:04)
[2019-12-29] MEDS: HALOPERIDOL 5 MG TABLET PO PRN (12:21)
[2019-12-29 16:52] VITALS: BP 101/60
[2019-12-29] MEDS: OLANZapine 7.5 MG TABLET PO SCH (20:20)
[2019-12-30 06:10] VITALS: BP 108/71
[2019-12-30 08:18] VITALS: BP 104/70
[2019-12-30] MEDS ORDERED: OLAN7.5T2 PO (15:51)
== END 2019-12-30 16:30 | disposition home or self-care (01) | DRG 750 ==
LOC: EMS 05:31 → B2S 12:57 → UNDOADMIN 16:41 → B2S 20:38
PROVIDERS: ADMIT Psychiatry & Neurology Child & Adolescent Psychiatry; ATTEND Psychiatry & Neurology Child & Adolescent Psychiatry
DX: F25.1 Schizoaffective disorder, depressive type (principal); R45.851 Suicidal ideations; F31.9 Bipolar disorder, unspecified; G44.209 Tension-type headache, unspecified, not intractable; K59.00 Constipation, unspecified; F41.9 Anxiety disorder, unspecified; G47.00 Insomnia, unspecified; R00.0 Tachycardia, unspecified; F15.10 Other stimulant abuse, uncomplicated; F17.210 Nicotine dependence, cigarettes, uncomplicated; Z91.5 Personal history of self-harm; Z79.899 Other long term (current) drug therapy
CPT/HCPCS: 83036; 84443; 87081; 93005; G0480; Q0162

== ENCOUNTER 2020-02-16 11:52 | Inpatient (IN) | payer MEDICAID ==
[~2020-02-16] VITALS: Ht 160 cm; Wt 69.0 kg
[~2020-02-16 11:52] MED LIST changes: +OLAN7.5T2 PO; -QUET300T2 PO; -RISP2TAB23 PO; -SERT100T12 PO
[2020-02-16 12:41] LABS: BASOPHILS % (AUTO) 0.6 % (0.0-2.0); EOSINOPHILS % (AUTO) 0.3 % (1.0-6.0); HEMATOCRIT 36.5 % (36-46); HEMOGLOBIN 12.5 g/dL (12.0-16.0); LYMPHOCYTES # (AUTO) 1.1 K/uL (1.0-4.8); LYMPHOCYTES % (AUTO) 11.5 % (22.0-44.0); MEAN CORPUSCULAR HEMOGLOBIN 33.4 pg (26.0-34.0); MEAN CORPUSCULAR HGB CONC 34.2 G/dL (31.0-37.0); MEAN CORPUSCULAR VOLUME 98 fL (80-100); MONOCYTES # (AUTO) 0.6 K/uL (0.1-1.0); MONOCYTES % (AUTO) 5.9 % (2.0-9.0); NEUTROPHILS # (AUTO) 7.9 K/uL (1.8-7.7); NEUTROPHILS % (AUTO) 81.7 % (40.0-70.0); PLATELET COUNT (AUTO) 376 K/uL (150-450); RED BLOOD CELL COUNT(AUTO) 3.73 MIL/uL (4.00-5.20); RED CELL DISTRIBUTION WIDTH 15.7 % (11.5-14.5)
[2020-02-16 12:51] LABS: ANION GAP 8 mmol/L (8-16); CALCIUM, TOTAL 9.4 mg/dL (8.8-10.5); CARBON DIOXIDE 27 mmol/L (22-29); CHLORIDE 99 mmol/L (98-107); CREATININE 1.03 mg/dL (0.60-1.30); GLOMERULAR FILTR. RATE CALC > 60 mL/min (>60); GLUCOSE,RANDOM 105 mg/dL (70-110); POTASSIUM 3.5 mmol/L (3.5-5.1); SODIUM SERUM 134 mmol/L (136-145); UREA NITROGEN, BLOOD 8 mg/dL (7-18)
[2020-02-16 12:57] LABS: ALANINE AMINOTRANSFERASE 32 U/L (12-78); ALBUMIN 3.9 g/dL (3.4-5.0); ALKALINE PHOSPHATASE 89 U/L (46-116); ASPARTATE AMINOTRANSFERASE 44 U/L (15-37); BILIRUBIN,TOTAL 0.9 mg/dL (0.1-1.0); TOTAL PROTEIN, SERUM 8.2 g/dL (6.4-8.2)
[2020-02-16 13:33] LABS: AMPHET/METH SCREEN,URINE NEGATIVE (NEGATIVE); BARBITURATE SCREEN, URINE NEGATIVE (NEGATIVE); BENZODIAZEPINES SCREEN,URINE POSITIVE (NEGATIVE); CANNABINOID SCREEN,URINE NEGATIVE (NEGATIVE); COCAINE SCREEN,URINE NEGATIVE (NEGATIVE); METHADONE SCREEN, URINE NEGATIVE (NEGATIVE); OPIATE SCREEN,URINE NEGATIVE (NEGATIVE); PHENCYCLIDINE SCREEN,URINE NEGATIVE (NEGATIVE)
[2020-02-16] MEDS ORDERED: HALOPERIDOL 5 MG TABLET PO ONE (14:15)
[2020-02-16] MEDS ORDERED: DiphenhydrAMINE HCL 25 MG CAPSULE PO ONE (14:15)
[2020-02-16] MEDS ORDERED: MAGNESIUM HYDROXIDE SUSPENSION 30 ML UDCUP PO PRN (16:30)
[2020-02-16] MEDS ORDERED: LOPERAMIDE HCL 2 MG CAPSULE PO PRN (16:30)
[2020-02-16] MEDS ORDERED: PETROLATUM,WHITE 28 GM JELLY TP PRN (16:30)
[2020-02-16] MEDS ORDERED: IBUPROFEN 400 MG TABLET PO PRN (16:30)
[2020-02-16] MEDS ORDERED: GuaiFENesin/D-METHORPHAN [SUGAR-FREE] 200-20MG/10 ML SYRUP UDCUP PO PRN (16:30)
[2020-02-16] MEDS ORDERED: NICOTINE 14 MG/24 HOUR PATCH TD PRN (16:30)
[2020-02-16] MEDS ORDERED: ACETAMINOPHEN 325 MG TABLET PO PRN (16:30)
[2020-02-16] MEDS ORDERED: ALBUTEROL SULFATE HFA 90 MCG/PUFF 8 GM INHALER IH PRN (16:30)
[2020-02-16] MEDS ORDERED: CloNIDine HCL 0.1 MG TABLET PO PRN (16:30)
[2020-02-16] MEDS ORDERED: ONDANSETRON HCL 4 MG TABLET PO PRN (16:30)
[2020-02-16] MEDS ORDERED: DOCUSATE SODIUM 100 MG CAPSULE PO PRN (16:30)
[2020-02-16 16:40] VITALS: BP 135/95
[2020-02-16] MEDS ORDERED: NICOTINE POLACRILEX 2 MG LOZENGE PO PRN (18:30)
[2020-02-16] MEDS: LORazepam 2 MG TABLET PO PRN (19:36)
[2020-02-16] MEDS ORDERED: OLANZapine 7.5 MG TABLET PO SCH (21:00)
[2020-02-17 06:16] VITALS: BP 138/73
[2020-02-17] MEDS: MAG HYDROX/AL HYDROX/SIMETH ES 30 ML SUSPENSION UDCUP PO PRN ×2 (06:56→16:26)
[2020-02-17 08:34] LABS: FREE T4 (FREE THYROXINE) 0.9 ng/dL (0.76-1.46); THYROID STIMULATING HORMONE 2.66 uIU/mL (0.36-3.74)
[2020-02-17 08:44] VITALS: BP 128/74
[2020-02-17] MEDS: LORazepam 2 MG TABLET PO PRN (12:25)
[2020-02-17 16:13] VITALS: BP 141/84
[2020-02-17] MEDS: HALOPERIDOL 5 MG TABLET PO PRN (16:21)
[2020-02-17] MEDS ORDERED: OLANZapine 10 MG TABLET PO SCH (21:00)
[2020-02-18 02:22] VITALS: BP 127/86
[2020-02-18] MEDS: ZOLPIDEM TARTRATE 10 MG TABLET PO PRN ×2 (02:26→21:02)
[2020-02-18] MEDS: HALOPERIDOL 5 MG TABLET PO PRN ×4 (02:26→21:02)
[2020-02-18 09:36] VITALS: BP 106/69
[2020-02-18 16:24] VITALS: BP 108/60
[2020-02-18] MEDS: OLANZapine 10 MG TABLET PO SCH (16:27)
[2020-02-19 00:35] VITALS: BP 100/59
[2020-02-19] MEDS: OLANZapine 10 MG TABLET PO SCH (08:23)
[2020-02-19] MEDS ORDERED: OLAN10TA3 PO (09:12)
[2020-02-19 09:45] VITALS: BP 100/64
== END 2020-02-19 11:25 | disposition home or self-care (01) | DRG 885 ==
LOC: EMS 11:54 → B2S 15:01
PROVIDERS: ADMIT Psychiatry & Neurology Child & Adolescent Psychiatry; ATTEND Psychiatry & Neurology Child & Adolescent Psychiatry
DX: F20.9 Schizophrenia, unspecified (principal); E87.1 Hypo-osmolality and hyponatremia; F12.90 Cannabis use, unspecified, uncomplicated; F15.90 Other stimulant use, unspecified, uncomplicated; F31.9 Bipolar disorder, unspecified; G89.29 Other chronic pain; G47.00 Insomnia, unspecified; F41.9 Anxiety disorder, unspecified; M54.9 Dorsalgia, unspecified; F10.10 Alcohol abuse, uncomplicated; Z87.891 Personal history of nicotine dependence
CPT/HCPCS: 84439; 84443; G0480

== ENCOUNTER 2020-05-06 03:33 | Emergency (ER) | payer MEDICAID ==
[~2020-05-06] VITALS: Ht 167.6 cm; Wt 72.7 kg
[~2020-05-06 03:33] MED LIST changes: +OLAN10TA3 PO; -OLAN7.5T2 PO
[2020-05-06 04:39] LABS: EOSINOPHILS % (AUTO) 1.2 % (1.0-6.0); HEMATOCRIT 35.8 % (36-46); HEMOGLOBIN 12.4 g/dL (12.0-16.0); LYMPHOCYTES # (AUTO) 1.3 K/uL (1.0-4.8); LYMPHOCYTES % (AUTO) 24.7 % (22.0-44.0); MEAN CORPUSCULAR HEMOGLOBIN 32.4 pg (26.0-34.0); MEAN CORPUSCULAR HGB CONC 34.6 G/dL (31.0-37.0); MEAN CORPUSCULAR VOLUME 94 fL (80-100); MONOCYTES # (AUTO) 0.4 K/uL (0.1-1.0); NEUTROPHILS # (AUTO) 3.5 K/uL (1.8-7.7); NEUTROPHILS % (AUTO) 66.1 % (40.0-70.0); PLATELET COUNT (AUTO) 445 K/uL (150-450); RED BLOOD CELL COUNT(AUTO) 3.82 MIL/uL (4.00-5.20); RED CELL DISTRIBUTION WIDTH 14.5 % (11.5-14.5)
[2020-05-06 04:48] LABS: ANION GAP 8 mmol/L (8-16); CARBON DIOXIDE 27 mmol/L (22-29); CHLORIDE 104 mmol/L (98-107); CREATININE 0.85 mg/dL (0.60-1.30); GLOMERULAR FILTR. RATE CALC > 60 mL/min (>60); GLUCOSE,RANDOM 93 mg/dL (70-110); POTASSIUM 3.8 mmol/L (3.5-5.1); SODIUM SERUM 139 mmol/L (136-145); UREA NITROGEN, BLOOD 5 mg/dL (7-18)
[2020-05-06 04:59] LABS: ALANINE AMINOTRANSFERASE 16 U/L (12-78); ALBUMIN 3.6 g/dL (3.4-5.0); ALKALINE PHOSPHATASE 80 U/L (46-116); ASPARTATE AMINOTRANSFERASE 15 U/L (15-37); BILIRUBIN,TOTAL 0.3 mg/dL (0.1-1.0); HCG,QUANTITATIVE 1 mIU/mL (0-6); TOTAL PROTEIN, SERUM 7.1 g/dL (6.4-8.2)
[2020-05-06] MEDS: LORazepam 1 MG TABLET PO ONE (05:03)
[2020-05-06 05:49] VITALS: BP 150/110
== END 2020-05-06 06:04 | disposition home or self-care (01) ==
LOC: EMS 03:33
DX: F15.90 Other stimulant use, unspecified, uncomplicated (principal); F41.9 Anxiety disorder, unspecified; F31.9 Bipolar disorder, unspecified; F20.9 Schizophrenia, unspecified; F17.210 Nicotine dependence, cigarettes, uncomplicated
CPT/HCPCS: 36415; 80053; 84702; 85025; 99283; G0480

== ENCOUNTER 2020-05-21 03:14 | Emergency (ER) | payer MEDICAID ==
[~2020-05-21] VITALS: Ht 162.6 cm; Wt 71.4 kg
[2020-05-21] MEDS ORDERED: LORazepam 1 MG TABLET PO ONE (04:00)
[2020-05-21 05:40] VITALS: BP 136/78
== END 2020-05-21 05:41 | disposition home or self-care (01) ==
LOC: EMS 03:16
DX: F41.9 Anxiety disorder, unspecified (principal); R07.89 Other chest pain; F31.9 Bipolar disorder, unspecified; F20.9 Schizophrenia, unspecified; F17.210 Nicotine dependence, cigarettes, uncomplicated; F19.90 Other psychoactive substance use, unspecified, uncomplicated
CPT/HCPCS: 93005

== ENCOUNTER 2020-05-24 01:27 | Emergency (ER) | payer MEDICAID ==
[~2020-05-24] VITALS: Ht 162.6 cm; Wt 65.9 kg
[2020-05-24 02:18] LABS: BASOPHILS % (AUTO) 0.6 % (0.0-2.0); EOSINOPHILS % (AUTO) 0.6 % (1.0-6.0); HEMATOCRIT 36.6 % (36-46); HEMOGLOBIN 12.1 g/dL (12.0-16.0); LYMPHOCYTES # (AUTO) 1.7 K/uL (1.0-4.8); LYMPHOCYTES % (AUTO) 35.1 % (22.0-44.0); MEAN CORPUSCULAR HGB CONC 33.1 G/dL (31.0-37.0); MEAN CORPUSCULAR VOLUME 94 fL (80-100); MONOCYTES # (AUTO) 0.4 K/uL (0.1-1.0); MONOCYTES % (AUTO) 9.2 % (2.0-9.0); NEUTROPHILS # (AUTO) 2.6 K/uL (1.8-7.7); NEUTROPHILS % (AUTO) 54.5 % (40.0-70.0); PLATELET COUNT (AUTO) 443 K/uL (150-450); RED CELL DISTRIBUTION WIDTH 15.5 % (11.5-14.5)
[2020-05-24 02:24] LABS: ANION GAP 13 mmol/L (8-16); CALCIUM, TOTAL 8.4 mg/dL (8.8-10.5); CARBON DIOXIDE 24 mmol/L (22-29); CHLORIDE 103 mmol/L (98-107); CREATININE 0.82 mg/dL (0.60-1.30); GLOMERULAR FILTR. RATE CALC > 60 mL/min (>60); GLUCOSE,RANDOM 91 mg/dL (70-110); POTASSIUM 3.6 mmol/L (3.5-5.1); SODIUM SERUM 140 mmol/L (136-145); UREA NITROGEN, BLOOD 12 mg/dL (7-18)
[2020-05-24 02:30] LABS: ACETAMINOPHEN < 2 mcg/mL (10-30); ALANINE AMINOTRANSFERASE 12 U/L (12-78); ALBUMIN 3.5 g/dL (3.4-5.0); ALKALINE PHOSPHATASE 73 U/L (46-116); ASPARTATE AMINOTRANSFERASE 18 U/L (15-37); BILIRUBIN,TOTAL 0.4 mg/dL (0.1-1.0); CREATINE KINASE, TOTAL ONLY 74 U/L (26-192); SALICYLATE 5.8 mg/dL (2.8-20.0); TOTAL PROTEIN, SERUM 7.4 g/dL (6.4-8.2)
[2020-05-24 02:52] LABS: COVID AG,FIA SOURCE NASOPHARYNGEAL
[2020-05-24] MEDS ORDERED: LORazepam 2 MG/ML VIAL IVP ONE (07:30)
[2020-05-24 07:45] VITALS: BP 133/84
[2020-05-24 08:13] LABS: AMPHET/METH SCREEN,URINE POSITIVE (NEGATIVE); BARBITURATE SCREEN, URINE NEGATIVE (NEGATIVE); BENZODIAZEPINES SCREEN,URINE NEGATIVE (NEGATIVE); CANNABINOID SCREEN,URINE NEGATIVE (NEGATIVE); COCAINE SCREEN,URINE NEGATIVE (NEGATIVE); METHADONE SCREEN, URINE NEGATIVE (NEGATIVE); OPIATE SCREEN,URINE NEGATIVE (NEGATIVE)
[2020-05-24 08:17] LABS: PHENCYCLIDINE SCREEN,URINE NEGATIVE (NEGATIVE)
[2020-05-24] MEDS ORDERED: LOPERAMIDE HCL 2 MG CAPSULE PO ONE (08:45)
== END 2020-05-24 08:52 | disposition home or self-care (01) ==
LOC: EMS 01:30
DX: F15.90 Other stimulant use, unspecified, uncomplicated (principal); F41.9 Anxiety disorder, unspecified; F31.9 Bipolar disorder, unspecified; F20.9 Schizophrenia, unspecified; F17.210 Nicotine dependence, cigarettes, uncomplicated; Z20.828 Contact with and (suspected) exposure to other viral communicable diseases
CPT/HCPCS: 36415; 71045; 80053; 80307; 82550; 84484; 85025; 87426; 93005; 96374; 99285; G0480; J2060; G0481

== ENCOUNTER 2020-05-24 21:47 | Emergency (ER) | payer MEDICAID ==
[~2020-05-24] VITALS: Ht 162.6 cm; Wt 71.4 kg
[2020-05-24 22:43] LABS: BASOPHILS % (AUTO) 0.5 % (0.0-2.0); EOSINOPHILS % (AUTO) 0.7 % (1.0-6.0); HEMATOCRIT 35.6 % (36-46); HEMOGLOBIN 11.7 g/dL (12.0-16.0); LYMPHOCYTES # (AUTO) 2.1 K/uL (1.0-4.8); LYMPHOCYTES % (AUTO) 23.5 % (22.0-44.0); MEAN CORPUSCULAR HEMOGLOBIN 30.4 pg (26.0-34.0); MEAN CORPUSCULAR HGB CONC 32.8 G/dL (31.0-37.0); MEAN CORPUSCULAR VOLUME 93 fL (80-100); MONOCYTES # (AUTO) 0.8 K/uL (0.1-1.0); NEUTROPHILS % (AUTO) 66.3 % (40.0-70.0); PLATELET COUNT (AUTO) 417 K/uL (150-450); RED BLOOD CELL COUNT(AUTO) 3.84 MIL/uL (4.00-5.20); RED CELL DISTRIBUTION WIDTH 14.9 % (11.5-14.5)
[2020-05-24 22:50] LABS: ANION GAP 17 mmol/L (8-16); CALCIUM, TOTAL 8.2 mg/dL (8.8-10.5); CARBON DIOXIDE 22 mmol/L (22-29); CHLORIDE 104 mmol/L (98-107); CREATININE 0.75 mg/dL (0.60-1.30); GLOMERULAR FILTR. RATE CALC > 60 mL/min (>60); GLUCOSE,RANDOM 90 mg/dL (70-110); SODIUM SERUM 143 mmol/L (136-145); UREA NITROGEN, BLOOD 9 mg/dL (7-18)
[2020-05-24] MEDS ORDERED: POTASSIUM CHLORIDE 20 MEQ ER TABLET PO ONE (23:00)
[2020-05-24 23:15] LABS: ALANINE AMINOTRANSFERASE 19 U/L (12-78); ALBUMIN 3.4 g/dL (3.4-5.0); ALKALINE PHOSPHATASE 76 U/L (46-116); ASPARTATE AMINOTRANSFERASE 29 U/L (15-37); BILIRUBIN,TOTAL 0.7 mg/dL (0.1-1.0); CREATINE KINASE, TOTAL ONLY 112 U/L (26-192); TOTAL PROTEIN, SERUM 7.3 g/dL (6.4-8.2)
[2020-05-24 23:35] LABS: B-TYPE NATRIURETIC PEPTIDE 5 pg/mL (0-100)
[2020-05-25 00:29] VITALS: BP 133/74
[2020-05-25] MEDS ORDERED: OLANZapine 5 MG TABLET PO ONE (01:00)
== END 2020-05-25 02:40 | disposition home or self-care (01) ==
LOC: EMS 21:49
DX: R06.02 Shortness of breath (principal); E87.6 Hypokalemia; F41.9 Anxiety disorder, unspecified; F31.9 Bipolar disorder, unspecified; F20.9 Schizophrenia, unspecified; F17.210 Nicotine dependence, cigarettes, uncomplicated; F19.90 Other psychoactive substance use, unspecified, uncomplicated
CPT/HCPCS: 83735; 93005; 36415-L1; 36415-TC; 71045-TC

== ENCOUNTER 2020-10-14 09:00 | Inpatient (IN) | payer MEDICAID ==
[~2020-10-14] VITALS: Ht 162.6 cm; Wt 70.0 kg
[2020-10-14 10:15] LABS: EOSINOPHILS % (AUTO) 1.5 % (1.0-6.0); HEMATOCRIT 38.3 % (36-46); HEMOGLOBIN 12.6 g/dL (12.0-16.0); LYMPHOCYTES # (AUTO) 1.9 K/uL (1.0-4.8); LYMPHOCYTES % (AUTO) 33.8 % (22.0-44.0); MEAN CORPUSCULAR HEMOGLOBIN 30.3 pg (26.0-34.0); MEAN CORPUSCULAR HGB CONC 32.9 G/dL (31.0-37.0); MEAN CORPUSCULAR VOLUME 92 fL (80-100); MONOCYTES # (AUTO) 0.4 K/uL (0.1-1.0); MONOCYTES % (AUTO) 7.7 % (2.0-9.0); NEUTROPHILS # (AUTO) 3.2 K/uL (1.8-7.7); PLATELET COUNT (AUTO) 432 K/uL (150-450); RED BLOOD CELL COUNT(AUTO) 4.17 MIL/uL (4.00-5.20); RED CELL DISTRIBUTION WIDTH 15.4 % (11.5-14.5)
[2020-10-14] MEDS ORDERED: HALOPERIDOL 5 MG TABLET PO ONE (10:15)
[2020-10-14] MEDS ORDERED: HALO2 PO (10:16)
[2020-10-14 10:24] LABS: ANION GAP 16 mmol/L (8-16); CALCIUM, TOTAL 8.6 mg/dL (8.8-10.5); CARBON DIOXIDE 26 mmol/L (22-29); CHLORIDE 102 mmol/L (98-107); CREATININE 1.15 mg/dL (0.60-1.30); GLOMERULAR FILTR. RATE CALC > 60 mL/min (>60); GLUCOSE,RANDOM 108 mg/dL (70-110); SODIUM SERUM 144 mmol/L (136-145); UREA NITROGEN, BLOOD 10 mg/dL (7-18)
[2020-10-14 10:37] LABS: ALANINE AMINOTRANSFERASE 38 U/L (12-78); ALBUMIN 3.5 g/dL (3.4-5.0); ALKALINE PHOSPHATASE 123 U/L (46-116); ASPARTATE AMINOTRANSFERASE 31 U/L (15-37); BILIRUBIN,TOTAL 0.2 mg/dL (0.1-1.0); HCG,QUANTITATIVE < 1 mIU/mL (0-6); TOTAL PROTEIN, SERUM 7.5 g/dL (6.4-8.2)
[2020-10-14 11:00] LABS: AMPHET/METH SCREEN,URINE POSITIVE (NEGATIVE); BARBITURATE SCREEN, URINE NEGATIVE (NEGATIVE); BENZODIAZEPINES SCREEN,URINE NEGATIVE (NEGATIVE); CANNABINOID SCREEN,URINE POSITIVE (NEGATIVE); COCAINE SCREEN,URINE NEGATIVE (NEGATIVE); METHADONE SCREEN, URINE NEGATIVE (NEGATIVE); OPIATE SCREEN,URINE NEGATIVE (NEGATIVE); PHENCYCLIDINE SCREEN,URINE NEGATIVE (NEGATIVE)
[2020-10-14] MEDS ORDERED: LORazepam 1 MG TABLET PO ONE (11:15)
[2020-10-14] MEDS ORDERED: HALOPERIDOL 5 MG TABLET PO PRN (11:45)
[2020-10-14] MEDS ORDERED: ZOLPIDEM TARTRATE 10 MG TABLET PO PRN (11:45)
[2020-10-14 11:52] LABS: COVID AG,FIA SOURCE NASAL SWAB
[2020-10-14 14:10] VITALS: BP 153/90
[2020-10-14 16:00] VITALS: BP 128/79
[2020-10-14] MEDS ORDERED: CloNIDine HCL 0.1 MG TABLET PO PRN ×2 (16:45→17:15)
[2020-10-14] MEDS ORDERED: PETROLATUM,WHITE 28 GM JELLY TP PRN (17:15)
[2020-10-14] MEDS ORDERED: MAG HYDROX/AL HYDROX/SIMETH ES 30 ML SUSPENSION UDCUP PO PRN (17:15)
[2020-10-14] MEDS ORDERED: ONDANSETRON HCL 4 MG TABLET PO PRN (17:15)
[2020-10-14] MEDS ORDERED: LOPERAMIDE HCL 2 MG CAPSULE PO PRN (17:15)
[2020-10-14] MEDS ORDERED: ACETAMINOPHEN 325 MG TABLET PO PRN (17:15)
[2020-10-14] MEDS ORDERED: NICOTINE 14 MG/24 HOUR PATCH TD PRN (17:15)
[2020-10-14] MEDS ORDERED: IBUPROFEN 400 MG TABLET PO PRN (17:15)
[2020-10-14] MEDS ORDERED: GuaiFENesin/D-METHORPHAN [SUGAR-FREE] 200-20MG/10 ML SYRUP UDCUP PO PRN (17:15)
[2020-10-14] MEDS ORDERED: MAGNESIUM HYDROXIDE SUSPENSION 30 ML UDCUP PO PRN (17:15)
[2020-10-14] MEDS ORDERED: ALBUTEROL SULFATE HFA 90 MCG/PUFF 8 GM INHALER IH PRN (17:15)
[2020-10-14] MEDS ORDERED: DOCUSATE SODIUM 100 MG CAPSULE PO PRN (17:15)
[2020-10-14] MEDS: OLANZapine 10 MG TABLET PO SCH (21:31)
[2020-10-15 08:46] VITALS: BP 123/63
[2020-10-15] MEDS: OLANZapine 10 MG TABLET PO SCH ×2 (11:15→20:37)
[2020-10-15 16:00] VITALS: BP 130/83
[2020-10-15 16:37] VITALS: BP 130/83
[2020-10-16] MEDS: BuPROPion HCL XL 150 MG ER TABLET PO SCH (08:28)
[2020-10-16] MEDS: OLANZapine 10 MG TABLET PO SCH (08:28)
[2020-10-16 08:30] VITALS: BP 121/73
[2020-10-16] MEDS: LORazepam 2 MG TABLET PO PRN (14:00)
[2020-10-16 16:33] VITALS: BP 116/73
[2020-10-16] MEDS: RisperiDONE 2 MG TABLET PO SCH (16:34)
[2020-10-17] MEDS: LORazepam 2 MG TABLET PO PRN ×2 (08:50→17:02)
[2020-10-17] MEDS: BuPROPion HCL XL 150 MG ER TABLET PO SCH (08:50)
[2020-10-17] MEDS: RisperiDONE 2 MG TABLET PO SCH ×2 (08:50→16:01)
[2020-10-17 10:02] VITALS: BP 90/55
[2020-10-17 16:14] VITALS: BP 114/79
[2020-10-18 05:16] VITALS: BP 111/71
[2020-10-18] MEDS: BuPROPion HCL XL 150 MG ER TABLET PO SCH (08:18)
[2020-10-18] MEDS: RisperiDONE 2 MG TABLET PO SCH (08:18)
[2020-10-18] MEDS: LORazepam 2 MG TABLET PO PRN (08:20)
[2020-10-18 09:02] VITALS: BP 100/73
[2020-10-18] MEDS ORDERED: BUPR-93 PO (13:10)
[2020-10-18] MEDS ORDERED: RISP2TAB45 PO (13:13)
== END 2020-10-18 13:30 | disposition home or self-care (01) | DRG 750 ==
LOC: EMS 09:08 → 3EI 12:35
PROVIDERS: ADMIT Psychiatry & Neurology Psychiatry; ATTEND Psychiatry & Neurology Psychiatry
DX: F25.9 Schizoaffective disorder, unspecified (principal); R45.851 Suicidal ideations; E83.51 Hypocalcemia; F17.210 Nicotine dependence, cigarettes, uncomplicated; Z20.822 Contact with and (suspected) exposure to COVID-19; G47.00 Insomnia, unspecified; F19.10 Other psychoactive substance abuse, uncomplicated; F31.9 Bipolar disorder, unspecified; F41.9 Anxiety disorder, unspecified; F12.90 Cannabis use, unspecified, uncomplicated; F10.10 Alcohol abuse, uncomplicated; Y90.9 Presence of alcohol in blood, level not specified; Z59.0 Homelessness
CPT/HCPCS: 87426; 99285; G0480

== ENCOUNTER 2020-11-14 17:42 | Emergency (ER) | payer MEDICAID ==
[~2020-11-14] VITALS: Ht 160 cm; Wt 69.5 kg
[~2020-11-14 17:42] MED LIST changes: +BUPR-93 PO; -OLAN10TA3 PO; +RISP2TAB45 PO
[2020-11-14 17:49] VITALS: BP 134/114
[2020-11-14] MEDS ORDERED: OLAN10TA3 PO (18:01)
[2020-11-14] MEDS ORDERED: SERT-162 PO (18:01)
== END 2020-11-14 19:00 | disposition left against medical advice (07) ==
LOC: EMS 17:44
DX: R45.851 Suicidal ideations (principal); Z53.21 Procedure and treatment not carried out due to patient leaving prior to being seen by health care provider

== ENCOUNTER 2020-11-27 07:47 | Emergency (ER) | payer MEDICAID ==
[~2020-11-27] VITALS: Ht 167.6 cm; Wt 75.0 kg
[~2020-11-27 07:47] MED LIST changes: -BUPR-93 PO; +OLAN10TA3 PO; -RISP2TAB45 PO; +SERT-162 PO
[2020-11-27] MEDS ORDERED: LORazepam 1 MG TABLET PO ONE (08:00)
[2020-11-27] MEDS ORDERED: HALOPERIDOL 5 MG TABLET PO ONE (08:00)
[2020-11-27 08:13] LABS: EOSINOPHILS % (AUTO) 0.2 % (1.0-6.0); HEMATOCRIT 36.8 % (36-46); HEMOGLOBIN 12.2 g/dL (12.0-16.0); LYMPHOCYTES # (AUTO) 1.2 K/uL (1.0-4.8); MEAN CORPUSCULAR HGB CONC 33.3 G/dL (31.0-37.0); MEAN CORPUSCULAR VOLUME 93 fL (80-100); MONOCYTES # (AUTO) 0.8 K/uL (0.1-1.0); MONOCYTES % (AUTO) 13.6 % (2.0-9.0); NEUTROPHILS % (AUTO) 65.2 % (40.0-70.0); PLATELET COUNT (AUTO) 402 K/uL (150-450); RED BLOOD CELL COUNT(AUTO) 3.96 MIL/uL (4.00-5.20); RED CELL DISTRIBUTION WIDTH 16.2 % (11.5-14.5)
[2020-11-27 08:42] LABS: AMPHET/METH SCREEN,URINE POSITIVE (NEGATIVE); BARBITURATE SCREEN, URINE NEGATIVE (NEGATIVE); BENZODIAZEPINES SCREEN,URINE POSITIVE (NEGATIVE); CANNABINOID SCREEN,URINE POSITIVE (NEGATIVE); COCAINE SCREEN,URINE NEGATIVE (NEGATIVE); METHADONE SCREEN, URINE NEGATIVE (NEGATIVE); OPIATE SCREEN,URINE NEGATIVE (NEGATIVE)
[2020-11-27 08:47] LABS: PHENCYCLIDINE SCREEN,URINE NEGATIVE (NEGATIVE)
[2020-11-27 09:18] LABS: ANION GAP 19 mmol/L (8-16); CALCIUM, TOTAL 9.2 mg/dL (8.8-10.5); CARBON DIOXIDE 22 mmol/L (22-29); CHLORIDE 101 mmol/L (98-107); CREATININE 0.91 mg/dL (0.60-1.30); GLOMERULAR FILTR. RATE CALC > 60 mL/min (>60); GLUCOSE,RANDOM 121 mg/dL (70-110); POTASSIUM 3.3 mmol/L (3.5-5.1); SODIUM SERUM 142 mmol/L (136-145); UREA NITROGEN, BLOOD 10 mg/dL (7-18)
[2020-11-27 09:24] LABS: ALANINE AMINOTRANSFERASE 40 U/L (12-78); ALBUMIN 4.3 g/dL (3.4-5.0); ALKALINE PHOSPHATASE 118 U/L (46-116); ASPARTATE AMINOTRANSFERASE 41 U/L (15-37); BILIRUBIN,TOTAL 0.4 mg/dL (0.1-1.0); TOTAL PROTEIN, SERUM 7.8 g/dL (6.4-8.2)
[2020-11-27] MEDS ORDERED: LORazepam 2 MG/ML VIAL IM ONE (10:00)
[2020-11-27] MEDS ORDERED: HALOPERIDOL LACTATE 5 MG/ML VIAL IM ONE (10:00)
[2020-11-27] MEDS ORDERED: DiphenhydrAMINE HCL 50 MG/ML VIAL IM ONE (10:00)
[2020-11-27 16:30] VITALS: BP 130/82
== END 2020-11-27 17:09 | disposition home or self-care (01) ==
LOC: EMS 07:49
DX: F20.9 Schizophrenia, unspecified (principal); F15.90 Other stimulant use, unspecified, uncomplicated; F31.9 Bipolar disorder, unspecified; F17.210 Nicotine dependence, cigarettes, uncomplicated
CPT/HCPCS: 36415; 80053; 80307; 85025; 96372; 99285; G0480; J1200; J1630; J2060

== ENCOUNTER 2020-12-04 05:38 | Inpatient (IN) | payer MEDICAID ==
[~2020-12-04] VITALS: Ht 162.6 cm; Wt 70.3 kg
[~2020-12-04 05:38] MED LIST changes: -OLAN10TA3 PO; +OLAN10TA74 PO
[2020-12-04 06:37] LABS: BASOPHILS % (AUTO) 0.6 % (0.0-2.0); EOSINOPHILS % (AUTO) 0.8 % (1.0-6.0); HEMATOCRIT 35.1 % (36-46); HEMOGLOBIN 11.6 g/dL (12.0-16.0); LYMPHOCYTES # (AUTO) 1.1 K/uL (1.0-4.8); LYMPHOCYTES % (AUTO) 24.2 % (22.0-44.0); MEAN CORPUSCULAR HEMOGLOBIN 30.9 pg (26.0-34.0); MEAN CORPUSCULAR HGB CONC 33.2 G/dL (31.0-37.0); MEAN CORPUSCULAR VOLUME 93 fL (80-100); MONOCYTES # (AUTO) 0.4 K/uL (0.1-1.0); MONOCYTES % (AUTO) 8.8 % (2.0-9.0); NEUTROPHILS % (AUTO) 65.6 % (40.0-70.0); PLATELET COUNT (AUTO) 336 K/uL (150-450); RED BLOOD CELL COUNT(AUTO) 3.77 MIL/uL (4.00-5.20); RED CELL DISTRIBUTION WIDTH 16.7 % (11.5-14.5)
[2020-12-04 06:51] LABS: ANION GAP 7 mmol/L (8-16); CALCIUM, TOTAL 8.5 mg/dL (8.8-10.5); CARBON DIOXIDE 29 mmol/L (22-29); CHLORIDE 102 mmol/L (98-107); CREATININE 0.96 mg/dL (0.60-1.30); GLOMERULAR FILTR. RATE CALC > 60 mL/min (>60); GLUCOSE,RANDOM 91 mg/dL (70-110); POTASSIUM 3.5 mmol/L (3.5-5.1); SODIUM SERUM 138 mmol/L (136-145); UREA NITROGEN, BLOOD 8 mg/dL (7-18)
[2020-12-04] MEDS ORDERED: HYDROGEN PEROXIDE 118 ML SOLUTION TP ONE (07:00)
[2020-12-04] MEDS ORDERED: LORazepam 2 MG TABLET PO ONE (07:00)
[2020-12-04] MEDS ORDERED: HALOPERIDOL 5 MG TABLET PO ONE (07:00)
[2020-12-04 07:04] LABS: ALANINE AMINOTRANSFERASE 25 U/L (12-78); ALBUMIN 3.5 g/dL (3.4-5.0); ALKALINE PHOSPHATASE 96 U/L (46-116); ASPARTATE AMINOTRANSFERASE 24 U/L (15-37); BILIRUBIN,TOTAL 0.3 mg/dL (0.1-1.0); HCG,QUANTITATIVE < 1 mIU/mL (0-6)
[2020-12-04] MEDS ORDERED: OLANZapine 5 MG TABLET PO ONE (09:15)
[2020-12-04] MEDS ORDERED: ZOLPIDEM TARTRATE 10 MG TABLET PO PRN (11:45)
[2020-12-04 11:46] LABS: COVID AG,FIA SOURCE NASOPHARYNGEAL
[2020-12-04] MEDS: OLANZapine 5 MG RAPDIS TABLET PO PRN (17:17)
[2020-12-04 18:47] VITALS: BP 121/73
[2020-12-04] MEDS: OLANZapine 10 MG TABLET PO SCH (20:35)
[2020-12-05 00:12] VITALS: BP 121/72
[2020-12-05] MEDS: OLANZapine 5 MG RAPDIS TABLET PO PRN (06:22)
[2020-12-05 08:06] VITALS: BP 140/81
[2020-12-05] MEDS: LORazepam 2 MG TABLET PO PRN ×2 (08:57→19:18)
[2020-12-05] MEDS: SERTRALINE HCL 100 MG TABLET PO SCH (08:57)
[2020-12-05] MEDS ORDERED: IBUPROFEN 600 MG TABLET PO PRN (15:30)
[2020-12-05] MEDS ORDERED: LOPERAMIDE HCL 2 MG CAPSULE PO PRN (15:30)
[2020-12-05] MEDS ORDERED: DOCUSATE SODIUM 100 MG CAPSULE PO PRN (15:30)
[2020-12-05] MEDS ORDERED: PETROLATUM,WHITE 28 GM JELLY TP PRN (15:30)
[2020-12-05] MEDS ORDERED: MAG HYDROX/AL HYDROX/SIMETH ES 30 ML SUSPENSION UDCUP PO PRN (15:30)
[2020-12-05] MEDS ORDERED: ONDANSETRON HCL 4 MG TABLET PO PRN (15:30)
[2020-12-05] MEDS ORDERED: OMEPRAZOLE 20 MG CAPSULE PO PRN (15:30)
[2020-12-05] MEDS ORDERED: BACITRACIN 28 GM OINTMENT TP PRN (15:30)
[2020-12-05] MEDS ORDERED: BENZOCAINE/MENTHOL LOZENGE PO PRN (15:30)
[2020-12-05] MEDS ORDERED: ACETAMINOPHEN 325 MG TABLET PO PRN (15:30)
[2020-12-05] MEDS ORDERED: ALBUTEROL SULFATE HFA 90 MCG/PUFF 8 GM INHALER IH PRN (15:30)
[2020-12-05] MEDS ORDERED: MAGNESIUM HYDROXIDE SUSPENSION 30 ML UDCUP PO PRN (15:30)
[2020-12-05] MEDS ORDERED: CloNIDine HCL 0.1 MG TABLET PO PRN (15:30)
[2020-12-05 16:14] VITALS: BP 122/67
[2020-12-05] MEDS: OLANZapine 10 MG TABLET PO SCH (20:04)
[2020-12-06 04:02] VITALS: BP 122/62
[2020-12-06 08:25] VITALS: BP 126/78
[2020-12-06] MEDS: LORazepam 2 MG TABLET PO PRN ×3 (08:25→18:50)
[2020-12-06] MEDS: SERTRALINE HCL 100 MG TABLET PO SCH (08:25)
[2020-12-06 16:20] VITALS: BP 119/69
[2020-12-06] MEDS: OLANZapine 10 MG TABLET PO SCH (20:37)
[2020-12-07 06:27] VITALS: BP 125/77
[2020-12-07 08:10] VITALS: BP 118/79
[2020-12-07] MEDS: SERTRALINE HCL 100 MG TABLET PO SCH (08:30)
[2020-12-07] MEDS: LORazepam 2 MG TABLET PO PRN ×2 (08:30→17:01)
[2020-12-07] MEDS: OLANZapine 5 MG RAPDIS TABLET PO PRN (08:30)
[2020-12-07 16:31] VITALS: BP 100/66
[2020-12-07] MEDS: OLANZapine 10 MG TABLET PO SCH (20:53)
[2020-12-08 02:29] VITALS: BP 121/76
[2020-12-08] MEDS: OLANZapine 5 MG RAPDIS TABLET PO PRN ×3 (05:52→16:31)
[2020-12-08] MEDS: SERTRALINE HCL 100 MG TABLET PO SCH (08:49)
[2020-12-08 09:17] VITALS: BP 113/69
[2020-12-08] MEDS: LORazepam 2 MG TABLET PO PRN (13:40)
[2020-12-08 16:26] VITALS: BP 116/73
[2020-12-08] MEDS: OLANZapine 10 MG TABLET PO SCH (20:16)
[2020-12-09 00:34] VITALS: BP 103/67
[2020-12-09] MEDS: LORazepam 2 MG TABLET PO PRN ×2 (06:47→15:51)
[2020-12-09 07:13] LABS: COVID AG,FIA SOURCE NASOPHARYNGEAL
[2020-12-09 08:30] VITALS: BP 110/69
[2020-12-09] MEDS: SERTRALINE HCL 100 MG TABLET PO SCH (09:28)
[2020-12-09] MEDS: OLANZapine 5 MG RAPDIS TABLET PO PRN (10:45)
[2020-12-09 16:42] VITALS: BP 113/71
[2020-12-09] MEDS: OLANZapine 10 MG TABLET PO SCH (20:27)
[2020-12-10 05:50] VITALS: BP 106/74
[2020-12-10 08:30] VITALS: BP 149/88
[2020-12-10] MEDS: SERTRALINE HCL 100 MG TABLET PO SCH (09:00)
[2020-12-10] MEDS: LORazepam 2 MG TABLET PO PRN (09:02)
== END 2020-12-10 15:25 | disposition home or self-care (01) | DRG 750 ==
LOC: EMS 05:41 → B2S 12:31 → EMS 13:23
PROVIDERS: ADMIT Psychiatry & Neurology Psychiatry; ATTEND Psychiatry & Neurology Psychiatry
DX: F25.9 Schizoaffective disorder, unspecified (principal); R45.851 Suicidal ideations; F15.90 Other stimulant use, unspecified, uncomplicated; F17.210 Nicotine dependence, cigarettes, uncomplicated; F41.9 Anxiety disorder, unspecified; K59.00 Constipation, unspecified; G47.00 Insomnia, unspecified; F10.129 Alcohol abuse with intoxication, unspecified; Z20.822 Contact with and (suspected) exposure to COVID-19
CPT/HCPCS: 80053; 84702; 85025; 99285; G0480

== ENCOUNTER 2020-12-16 06:56 | Emergency (ER) | payer MEDICAID ==
[~2020-12-16] VITALS: Ht 162.6 cm; Wt 71.4 kg
[2020-12-16] MEDS ORDERED: OLAN7.5T22 PO (07:03)
[2020-12-16] MEDS ORDERED: LORazepam 2 MG/ML VIAL IM ONE (07:15)
[2020-12-16] MEDS ORDERED: HALOPERIDOL LACTATE 5 MG/ML VIAL IM ONE (07:15)
[2020-12-16 07:45] LABS: BASOPHILS % (AUTO) 1.1 % (0.0-2.0); EOSINOPHILS % (AUTO) 1.7 % (1.0-6.0); HEMATOCRIT 34.6 % (36-46); HEMOGLOBIN 11.3 g/dL (12.0-16.0); LYMPHOCYTES # (AUTO) 1.1 K/uL (1.0-4.8); MEAN CORPUSCULAR HEMOGLOBIN 30.9 pg (26.0-34.0); MEAN CORPUSCULAR HGB CONC 32.6 G/dL (31.0-37.0); MEAN CORPUSCULAR VOLUME 95 fL (80-100); MONOCYTES # (AUTO) 0.4 K/uL (0.1-1.0); NEUTROPHILS # (AUTO) 1.6 K/uL (1.8-7.7); NEUTROPHILS % (AUTO) 51.2 % (40.0-70.0); PLATELET COUNT (AUTO) 391 K/uL (150-450); RED BLOOD CELL COUNT(AUTO) 3.64 MIL/uL (4.00-5.20); RED CELL DISTRIBUTION WIDTH 16.9 % (11.5-14.5)
[2020-12-16 07:57] LABS: ANION GAP 9 mmol/L (8-16); CALCIUM, TOTAL 8.7 mg/dL (8.8-10.5); CARBON DIOXIDE 29 mmol/L (22-29); CHLORIDE 103 mmol/L (98-107); CREATININE 0.82 mg/dL (0.60-1.30); GLOMERULAR FILTR. RATE CALC > 60 mL/min (>60); GLUCOSE,RANDOM 115 mg/dL (70-110); POTASSIUM 3.6 mmol/L (3.5-5.1); SODIUM SERUM 141 mmol/L (136-145); UREA NITROGEN, BLOOD 7 mg/dL (7-18)
[2020-12-16 08:01] LABS: ALANINE AMINOTRANSFERASE 36 U/L (12-78); ALBUMIN 3.5 g/dL (3.4-5.0); ALKALINE PHOSPHATASE 101 U/L (46-116); ASPARTATE AMINOTRANSFERASE 28 U/L (15-37); BILIRUBIN,TOTAL 0.2 mg/dL (0.1-1.0); TOTAL PROTEIN, SERUM 6.9 g/dL (6.4-8.2)
[2020-12-16 08:01] LABS: AMPHET/METH SCREEN,URINE POSITIVE (NEGATIVE); BARBITURATE SCREEN, URINE NEGATIVE (NEGATIVE); BENZODIAZEPINES SCREEN,URINE NEGATIVE (NEGATIVE); CANNABINOID SCREEN,URINE NEGATIVE (NEGATIVE); COCAINE SCREEN,URINE NEGATIVE (NEGATIVE); METHADONE SCREEN, URINE NEGATIVE (NEGATIVE); OPIATE SCREEN,URINE NEGATIVE (NEGATIVE); PHENCYCLIDINE SCREEN,URINE NEGATIVE (NEGATIVE)
[2020-12-16 09:05] VITALS: BP 142/78
== END 2020-12-16 09:17 | disposition home or self-care (01) ==
LOC: EMS 06:56
DX: F20.9 Schizophrenia, unspecified (principal); F15.90 Other stimulant use, unspecified, uncomplicated; F41.9 Anxiety disorder, unspecified; F31.9 Bipolar disorder, unspecified; F17.210 Nicotine dependence, cigarettes, uncomplicated
CPT/HCPCS: 36415; 80053; 80307; 85025; 96372; 99284; G0480; J1630; J2060

== ENCOUNTER 2020-12-17 07:23 | Emergency (ER) | payer MEDICAID ==
[~2020-12-17] VITALS: Ht 167.6 cm; Wt 72.0 kg
[~2020-12-17 07:23] MED LIST changes: -OLAN10TA74 PO; +OLAN7.5T22 PO
[2020-12-17] MEDS ORDERED: HALOPERIDOL 5 MG TABLET PO ONE (07:45)
[2020-12-17] MEDS ORDERED: LORazepam 1 MG TABLET PO ONE (07:45)
[2020-12-17 07:47] VITALS: BP 112/78
[2020-12-17 08:01] LABS: EOSINOPHILS % (AUTO) 1.6 % (1.0-6.0); HEMATOCRIT 34.8 % (36-46); HEMOGLOBIN 11.7 g/dL (12.0-16.0); LYMPHOCYTES # (AUTO) 1.5 K/uL (1.0-4.8); LYMPHOCYTES % (AUTO) 35.4 % (22.0-44.0); MEAN CORPUSCULAR HEMOGLOBIN 31.8 pg (26.0-34.0); MEAN CORPUSCULAR HGB CONC 33.5 G/dL (31.0-37.0); MEAN CORPUSCULAR VOLUME 95 fL (80-100); MONOCYTES # (AUTO) 0.5 K/uL (0.1-1.0); MONOCYTES % (AUTO) 10.5 % (2.0-9.0); NEUTROPHILS # (AUTO) 2.2 K/uL (1.8-7.7); NEUTROPHILS % (AUTO) 51.5 % (40.0-70.0); PLATELET COUNT (AUTO) 404 K/uL (150-450); RED BLOOD CELL COUNT(AUTO) 3.68 MIL/uL (4.00-5.20); RED CELL DISTRIBUTION WIDTH 16.6 % (11.5-14.5)
[2020-12-17 08:24] LABS: ANION GAP 11 mmol/L (8-16); CALCIUM, TOTAL 9.1 mg/dL (8.8-10.5); CARBON DIOXIDE 26 mmol/L (22-29); CHLORIDE 103 mmol/L (98-107); CREATININE 0.91 mg/dL (0.60-1.30); GLOMERULAR FILTR. RATE CALC > 60 mL/min (>60); GLUCOSE,RANDOM 92 mg/dL (70-110); POTASSIUM 3.8 mmol/L (3.5-5.1); SODIUM SERUM 140 mmol/L (136-145); UREA NITROGEN, BLOOD 7 mg/dL (7-18)
[2020-12-17 08:30] LABS: ALANINE AMINOTRANSFERASE 37 U/L (12-78); ALBUMIN 3.6 g/dL (3.4-5.0); ALKALINE PHOSPHATASE 107 U/L (46-116); ASPARTATE AMINOTRANSFERASE 32 U/L (15-37); BILIRUBIN,TOTAL 0.2 mg/dL (0.1-1.0); TOTAL PROTEIN, SERUM 7.1 g/dL (6.4-8.2)
== END 2020-12-17 10:55 | disposition home or self-care (01) ==
LOC: EMS 07:28
DX: F31.9 Bipolar disorder, unspecified (principal); F10.129 Alcohol abuse with intoxication, unspecified; F41.9 Anxiety disorder, unspecified; F20.9 Schizophrenia, unspecified; F17.210 Nicotine dependence, cigarettes, uncomplicated; F19.90 Other psychoactive substance use, unspecified, uncomplicated; Y90.7 Blood alcohol level of 200-239 mg/100 ml
CPT/HCPCS: 36415; 80053; 85025; 99284; G0480

== ENCOUNTER 2020-12-18 03:10 | Emergency (ER) | payer MEDICAID ==
[~2020-12-18] VITALS: Ht 162.6 cm; Wt 71.4 kg
[2020-12-18 04:18] LABS: COVID AG,FIA SOURCE NASOPHARYNGEAL
[2020-12-18 04:31] VITALS: BP 129/74
[2020-12-18] MEDS ORDERED: ZOLPIDEM TARTRATE 10 MG TABLET PO PRN (05:15)
[2020-12-18] MEDS ORDERED: LORazepam 2 MG TABLET PO PRN (05:15)
[2020-12-18] MEDS ORDERED: HALOPERIDOL 5 MG TABLET PO PRN (05:15)
[2020-12-18 07:57] LABS: BASOPHILS % (AUTO) 1.3 % (0.0-2.0); EOSINOPHILS % (AUTO) 1.6 % (1.0-6.0); HEMATOCRIT 35.7 % (36-46); HEMOGLOBIN 12.1 g/dL (12.0-16.0); LYMPHOCYTES # (AUTO) 1.4 K/uL (1.0-4.8); MEAN CORPUSCULAR HGB CONC 33.8 G/dL (31.0-37.0); MEAN CORPUSCULAR VOLUME 95 fL (80-100); MONOCYTES # (AUTO) 0.5 K/uL (0.1-1.0); MONOCYTES % (AUTO) 9.2 % (2.0-9.0); NEUTROPHILS % (AUTO) 59.9 % (40.0-70.0); PLATELET COUNT (AUTO) 430 K/uL (150-450); RED BLOOD CELL COUNT(AUTO) 3.77 MIL/uL (4.00-5.20); RED CELL DISTRIBUTION WIDTH 16.8 % (11.5-14.5)
[2020-12-18 08:14] LABS: ANION GAP 9 mmol/L (8-16); CARBON DIOXIDE 29 mmol/L (22-29); CHLORIDE 102 mmol/L (98-107); CREATININE 0.92 mg/dL (0.60-1.30); GLOMERULAR FILTR. RATE CALC > 60 mL/min (>60); GLUCOSE,RANDOM 90 mg/dL (70-110); SODIUM SERUM 140 mmol/L (136-145); UREA NITROGEN, BLOOD 7 mg/dL (7-18)
[2020-12-18 08:25] LABS: ALANINE AMINOTRANSFERASE 34 U/L (12-78); ALBUMIN 3.8 g/dL (3.4-5.0); ALKALINE PHOSPHATASE 104 U/L (46-116); ASPARTATE AMINOTRANSFERASE 25 U/L (15-37); BILIRUBIN,TOTAL 0.5 mg/dL (0.1-1.0); TOTAL PROTEIN, SERUM 7.2 g/dL (6.4-8.2)
[2020-12-18 08:45] LABS: HCG,QUANTITATIVE < 1 mIU/mL (0-6)
== END 2020-12-18 10:09 | disposition left against medical advice (07) ==
LOC: EMS 03:15
DX: F25.9 Schizoaffective disorder, unspecified (principal); F32.9 Major depressive disorder, single episode, unspecified; F10.10 Alcohol abuse, uncomplicated; F15.10 Other stimulant abuse, uncomplicated; F41.9 Anxiety disorder, unspecified; F17.210 Nicotine dependence, cigarettes, uncomplicated; Z20.822 Contact with and (suspected) exposure to COVID-19; Y90.0 Blood alcohol level of less than 20 mg/100 ml
CPT/HCPCS: 36415; 80053; 84702; 85025; 87426; 99284; G0480

== ENCOUNTER 2021-02-04 15:30 | Inpatient (IN) | payer MEDICAID ==
[~2021-02-04] VITALS: Ht 162.6 cm; Wt 70.8 kg
[2021-02-04 16:10] LABS: BASOPHILS % (AUTO) 0.6 % (0.0-2.0); EOSINOPHILS % (AUTO) 0.3 % (1.0-6.0); HEMATOCRIT 37.9 % (36-46); HEMOGLOBIN 12.4 g/dL (12.0-16.0); LYMPHOCYTES # (AUTO) 1.3 K/uL (1.0-4.8); LYMPHOCYTES % (AUTO) 15.7 % (22.0-44.0); MEAN CORPUSCULAR HEMOGLOBIN 31.7 pg (26.0-34.0); MEAN CORPUSCULAR HGB CONC 32.7 G/dL (31.0-37.0); MEAN CORPUSCULAR VOLUME 97 fL (80-100); MONOCYTES # (AUTO) 0.7 K/uL (0.1-1.0); MONOCYTES % (AUTO) 8.5 % (2.0-9.0); NEUTROPHILS % (AUTO) 74.9 % (40.0-70.0); PLATELET COUNT (AUTO) 409 K/uL (150-450); RED BLOOD CELL COUNT(AUTO) 3.91 MIL/uL (4.00-5.20); RED CELL DISTRIBUTION WIDTH 15.8 % (11.5-14.5)
[2021-02-04] MEDS ORDERED: SODIUM CHLORIDE 0.9% 1,000 ML IV ONE ×2 (16:15→20:30)
[2021-02-04 16:20] LABS: SALICYLATE 3.1 mg/dL (2.8-20.0)
[2021-02-04 16:21] LABS: ANION GAP 18 mmol/L (8-16); CALCIUM, TOTAL 8.9 mg/dL (8.8-10.5); CARBON DIOXIDE 19 mmol/L (22-29); CHLORIDE 104 mmol/L (98-107); CREATININE 0.99 mg/dL (0.60-1.30); GLOMERULAR FILTR. RATE CALC > 60 mL/min (>60); GLUCOSE,RANDOM 83 mg/dL (70-110); POTASSIUM 3.3 mmol/L (3.5-5.1); SODIUM SERUM 141 mmol/L (136-145); UREA NITROGEN, BLOOD 11 mg/dL (7-18)
[2021-02-04] MEDS ORDERED: POTASSIUM CHLORIDE 20 MEQ ER TABLET PO ONE (16:30)
[2021-02-04 16:32] LABS: B-TYPE NATRIURETIC PEPTIDE 6 pg/mL (0-100)
[2021-02-04 16:38] LABS: PROTHROMBIN TIME 10.8 SEC (9.4-11.6)
[2021-02-04 16:47] LABS: ALANINE AMINOTRANSFERASE 30 U/L (12-78); ALBUMIN 3.9 g/dL (3.4-5.0); ALKALINE PHOSPHATASE 100 U/L (46-116); ASPARTATE AMINOTRANSFERASE 31 U/L (15-37); BILIRUBIN,TOTAL 0.5 mg/dL (0.1-1.0); CREATINE KINASE, TOTAL ONLY 203 U/L (26-192); HCG,QUANTITATIVE < 1 mIU/mL (0-6); PHOSPHORUS 3.2 mg/dL (2.5-4.9); TOTAL PROTEIN, SERUM 7.7 g/dL (6.4-8.2)
[2021-02-04 16:48] LABS: ACETAMINOPHEN < 2 mcg/mL (10-30)
[2021-02-04] MEDS ORDERED: LORazepam 2 MG/ML VIAL IVP ONE (20:30)
[2021-02-04 20:55] LABS: COVID AG,FIA SOURCE NASOPHARYNGEAL
[2021-02-05] MEDS ORDERED: ZOLPIDEM TARTRATE 10 MG TABLET PO PRN
[2021-02-05] MEDS ORDERED: HALOPERIDOL 5 MG TABLET PO PRN
[2021-02-05 02:37] VITALS: BP 110/64
[2021-02-05 06:57] LABS: CHOL/HDL RATIO 2.9 (3.9-5.7)
[2021-02-05 08:32] VITALS: BP 113/65
[2021-02-05] MEDS ORDERED: NICOTINE 14 MG/24 HOUR PATCH TD PRN (12:45)
[2021-02-05] MEDS ORDERED: DOCUSATE SODIUM 100 MG CAPSULE PO PRN (12:45)
[2021-02-05] MEDS ORDERED: CloNIDine HCL 0.1 MG TABLET PO PRN (12:45)
[2021-02-05] MEDS ORDERED: ACETAMINOPHEN 325 MG TABLET PO PRN (12:45)
[2021-02-05] MEDS ORDERED: MAG HYDROX/AL HYDROX/SIMETH ES 30 ML SUSPENSION UDCUP PO PRN (12:45)
[2021-02-05] MEDS ORDERED: ONDANSETRON HCL 4 MG TABLET PO PRN (12:45)
[2021-02-05] MEDS ORDERED: ALBUTEROL SULFATE HFA 90 MCG/PUFF 8 GM INHALER IH PRN (12:45)
[2021-02-05] MEDS ORDERED: MAGNESIUM HYDROXIDE SUSPENSION 30 ML UDCUP PO PRN (12:45)
[2021-02-05] MEDS ORDERED: GuaiFENesin/D-METHORPHAN [SUGAR-FREE] 200-20MG/10 ML SYRUP UDCUP PO PRN (12:45)
[2021-02-05] MEDS ORDERED: LOPERAMIDE HCL 2 MG CAPSULE PO PRN (12:45)
[2021-02-05] MEDS ORDERED: IBUPROFEN 400 MG TABLET PO PRN (12:45)
[2021-02-05] MEDS ORDERED: PETROLATUM,WHITE 28 GM JELLY TP PRN (12:45)
[2021-02-05] MEDS ORDERED: LORazepam 2 MG TABLET PO PRN ×2 (13:00)
[2021-02-05] MEDS ORDERED: CYANOCOBALAMIN 1,000 MCG/ML VIAL IM ONE (13:00)
[2021-02-05 13:03] VITALS: BP 113/49
[2021-02-05] MEDS: MULTIVITAMINS WITH MINERALS, THERAPEUTIC TABLET PO SCH (13:17)
[2021-02-05] MEDS: FOLIC ACID 1 MG TABLET PO SCH (13:17)
[2021-02-05] MEDS: SERTRALINE HCL 100 MG TABLET PO SCH (13:17)
[2021-02-05] MEDS: OLANZapine 7.5 MG TABLET PO SCH ×2 (13:18→21:24)
[2021-02-05 14:15] VITALS: BP 115/66
[2021-02-05 15:05] VITALS: BP 119/68
[2021-02-05 16:32] VITALS: BP 127/76
[2021-02-05] MEDS: THIAMINE 100 MG TABLET PO SCH (17:16)
[2021-02-06 06:08] LABS: BASOPHILS % (AUTO) 0.5 % (0.0-2.0); EOSINOPHILS % (AUTO) 3.3 % (1.0-6.0); HEMATOCRIT 32.2 % (36-46); HEMOGLOBIN 10.7 g/dL (12.0-16.0); LYMPHOCYTES # (AUTO) 1.3 K/uL (1.0-4.8); LYMPHOCYTES % (AUTO) 33.2 % (22.0-44.0); MEAN CORPUSCULAR HEMOGLOBIN 32.4 pg (26.0-34.0); MEAN CORPUSCULAR HGB CONC 33.3 G/dL (31.0-37.0); MEAN CORPUSCULAR VOLUME 97 fL (80-100); MONOCYTES # (AUTO) 0.4 K/uL (0.1-1.0); MONOCYTES % (AUTO) 11.2 % (2.0-9.0); NEUTROPHILS % (AUTO) 51.8 % (40.0-70.0); PLATELET COUNT (AUTO) 345 K/uL (150-450); RED BLOOD CELL COUNT(AUTO) 3.31 MIL/uL (4.00-5.20); RED CELL DISTRIBUTION WIDTH 15.2 % (11.5-14.5)
[2021-02-06 06:26] LABS: HEMOGLOBIN A1C 4.9 % (3.8-5.6)
[2021-02-06 06:32] LABS: ALANINE AMINOTRANSFERASE 23 U/L (12-78); ALKALINE PHOSPHATASE 77 U/L (46-116); ANION GAP 8 mmol/L (8-16); ASPARTATE AMINOTRANSFERASE 18 U/L (15-37); BILIRUBIN,TOTAL 0.5 mg/dL (0.1-1.0); CALCIUM, TOTAL 8.2 mg/dL (8.8-10.5); CARBON DIOXIDE 27 mmol/L (22-29); CHLORIDE 107 mmol/L (98-107); CREATININE 0.76 mg/dL (0.60-1.30); GLOMERULAR FILTR. RATE CALC > 60 mL/min (>60); GLUCOSE,RANDOM 81 mg/dL (70-110); POTASSIUM 3.8 mmol/L (3.5-5.1); SODIUM SERUM 142 mmol/L (136-145); TOTAL PROTEIN, SERUM 6.1 g/dL (6.4-8.2); UREA NITROGEN, BLOOD 9 mg/dL (7-18)
[2021-02-06] MEDS ORDERED: LORazepam 2 MG TABLET PO PRN (07:00)
[2021-02-06 07:08] LABS: CHOL/HDL RATIO 3.1 (3.9-5.7); CHOLESTEROL 188 mg/dL (131-200); HDL CHOLESTEROL 61 mg/dL (40-60); LDL CHOL (CALC.) 113 mg/dL (0-130); TRIGLYCERIDES 69 mg/dL (15-150)
[2021-02-06 08:00] VITALS: BP 130/86
[2021-02-06] MEDS: THIAMINE 100 MG TABLET PO SCH ×2 (08:02→17:03)
[2021-02-06] MEDS: MULTIVITAMINS WITH MINERALS, THERAPEUTIC TABLET PO SCH (08:02)
[2021-02-06] MEDS: FOLIC ACID 1 MG TABLET PO SCH (08:02)
[2021-02-06] MEDS: LORazepam 2 MG TABLET PO SCH ×4 (08:02→21:40)
[2021-02-06] MEDS: OLANZapine 7.5 MG TABLET PO SCH ×2 (08:02→21:39)
[2021-02-06] MEDS: SERTRALINE HCL 100 MG TABLET PO SCH (08:02)
[2021-02-06 08:53] VITALS: BP 130/86
[2021-02-06 14:41] VITALS: BP 130/86
[2021-02-06 16:11] VITALS: BP 106/64
[2021-02-07] MEDS: THIAMINE 100 MG TABLET PO SCH ×2 (08:56→16:11)
[2021-02-07] MEDS: MULTIVITAMINS WITH MINERALS, THERAPEUTIC TABLET PO SCH (08:56)
[2021-02-07] MEDS: SERTRALINE HCL 100 MG TABLET PO SCH (08:56)
[2021-02-07] MEDS: OLANZapine 7.5 MG TABLET PO SCH (08:56)
[2021-02-07] MEDS: FOLIC ACID 1 MG TABLET PO SCH (08:57)
[2021-02-07] MEDS: LORazepam 2 MG TABLET PO SCH ×3 (08:57→16:12)
[2021-02-07 09:35] VITALS: BP 99/61
[2021-02-07 09:37] VITALS: BP 99/61
[2021-02-08] MEDS ORDERED: LORazepam 1 MG TABLET PO PRN (07:00)
[2021-02-08] MEDS ORDERED: LORazepam 1 MG TABLET PO SCH (09:00)
[2021-02-09] MEDS ORDERED: LORazepam 1 MG TABLET PO PRN (07:00)
== END 2021-02-07 18:00 | disposition home or self-care (01) | DRG 750 ==
LOC: EMS 15:32 → 3EI 23:48
DX: F25.1 Schizoaffective disorder, depressive type (principal); M62.82 Rhabdomyolysis; E87.6 Hypokalemia; F41.9 Anxiety disorder, unspecified; Z20.822 Contact with and (suspected) exposure to COVID-19; G47.00 Insomnia, unspecified; R00.0 Tachycardia, unspecified; F31.9 Bipolar disorder, unspecified; F15.10 Other stimulant abuse, uncomplicated; Y90.3 Blood alcohol level of 60-79 mg/100 ml; Z79.899 Other long term (current) drug therapy; T43.592A Poisoning by other antipsychotics and neuroleptics, intentional self-harm, initial encounter; Y92.89 Other specified places as the place of occurrence of the external cause
CPT/HCPCS: 70360; 71045; 80053; 80061; 82550; 83036; 83735; 83880; 84100; 84443; 84484; 84702; 85025; 85610; 85730; 93005; 99285; G0480; G0481; J2060; J3420; J7030; 36415-L1; 36415-TC

== ENCOUNTER 2021-03-22 20:08 | Emergency (ER) | payer MEDICAID ==
[~2021-03-22] VITALS: Ht 162.6 cm; Wt 71.4 kg
[2021-03-22] MEDS ORDERED: SERT-162 PO (20:43)
[2021-03-22] MEDS ORDERED: NAPR-1025 PO (20:43)
[2021-03-22] MEDS ORDERED: HYD50 PO (20:43)
[2021-03-22 20:46] LABS: EOSINOPHILS % (AUTO) 2.5 % (1.0-6.0); HEMATOCRIT 37.5 % (36-46); LYMPHOCYTES # (AUTO) 1.7 K/uL (1.0-4.8); LYMPHOCYTES % (AUTO) 34.9 % (22.0-44.0); MEAN CORPUSCULAR VOLUME 97 fL (80-100); MONOCYTES # (AUTO) 0.4 K/uL (0.1-1.0); MONOCYTES % (AUTO) 7.8 % (2.0-9.0); NEUTROPHILS # (AUTO) 2.6 K/uL (1.8-7.7); NEUTROPHILS % (AUTO) 53.8 % (40.0-70.0); PLATELET COUNT (AUTO) 353 K/uL (150-450); RED BLOOD CELL COUNT(AUTO) 3.87 MIL/uL (4.00-5.20); RED CELL DISTRIBUTION WIDTH 14.9 % (11.5-14.5)
[2021-03-22 21:02] LABS: ANION GAP 3 mmol/L (8-16); CALCIUM, TOTAL 8.8 mg/dL (8.8-10.5); CARBON DIOXIDE 30 mmol/L (22-29); CHLORIDE 104 mmol/L (98-107); CREATININE 0.86 mg/dL (0.60-1.30); GLOMERULAR FILTR. RATE CALC > 60 mL/min (>60); GLUCOSE,RANDOM 102 mg/dL (70-110); POTASSIUM 3.9 mmol/L (3.5-5.1); SODIUM SERUM 137 mmol/L (136-145); UREA NITROGEN, BLOOD 12 mg/dL (7-18)
[2021-03-22 21:14] LABS: COVID AG,FIA SOURCE NASOPHARYNGEAL
[2021-03-22] MEDS ORDERED: HALOPERIDOL 5 MG TABLET PO ONE (21:15)
[2021-03-22] MEDS ORDERED: LORazepam 2 MG TABLET PO ONE (21:15)
[2021-03-22] MEDS ORDERED: DiphenhydrAMINE HCL 25 MG CAPSULE PO ONE (21:15)
[2021-03-22 21:19] VITALS: BP 110/62
[2021-03-22 21:19] LABS: AMPHET/METH SCREEN,URINE NEGATIVE (NEGATIVE); BARBITURATE SCREEN, URINE NEGATIVE (NEGATIVE); BENZODIAZEPINES SCREEN,URINE NEGATIVE (NEGATIVE); CANNABINOID SCREEN,URINE NEGATIVE (NEGATIVE); COCAINE SCREEN,URINE NEGATIVE (NEGATIVE); METHADONE SCREEN, URINE NEGATIVE (NEGATIVE); OPIATE SCREEN,URINE NEGATIVE (NEGATIVE)
[2021-03-22 21:26] LABS: ALANINE AMINOTRANSFERASE 23 U/L (12-78); ALKALINE PHOSPHATASE 78 U/L (46-116); ASPARTATE AMINOTRANSFERASE 13 U/L (15-37); HCG,QUANTITATIVE < 1 mIU/mL (0-6); TOTAL PROTEIN, SERUM 6.7 g/dL (6.4-8.2)
[2021-03-22 21:26] LABS: PHENCYCLIDINE SCREEN,URINE NEGATIVE (NEGATIVE)
[2021-03-22 21:38] LABS: BILIRUBIN,TOTAL 0.1 mg/dL (0.1-1.0)
== END 2021-03-22 21:49 | disposition home or self-care (01) ==
LOC: EMS 20:12
DX: F25.9 Schizoaffective disorder, unspecified (principal); F32.9 Major depressive disorder, single episode, unspecified; F41.9 Anxiety disorder, unspecified; F17.210 Nicotine dependence, cigarettes, uncomplicated; F19.90 Other psychoactive substance use, unspecified, uncomplicated; Z20.822 Contact with and (suspected) exposure to COVID-19
CPT/HCPCS: 36415; 80053; 80307; 84702; 85025; 87426; 99284; G0480

== ENCOUNTER 2021-05-22 01:51 | Emergency (ER) | payer MEDICAID ==
[~2021-05-22] VITALS: Ht 162.6 cm; Wt 72.7 kg
[~2021-05-22 01:51] MED LIST changes: +HYD50 PO; +NAPR-1025 PO; -OLAN7.5T22 PO
[2021-05-22] MEDS ORDERED: NEOMYCIN/POLYMYXIN B/HYDROCORT 10 ML OTIC SUSPENSION AS ONE (02:45)
[2021-05-22] MEDS ORDERED: HYDROGEN PEROXIDE 118 ML SOLUTION TP ONE (02:45)
[2021-05-22 03:00] VITALS: BP 137/79
== END 2021-05-22 04:05 | disposition home or self-care (01) ==
LOC: EMS 01:54
DX: H61.22 Impacted cerumen, left ear (principal); F25.9 Schizoaffective disorder, unspecified; F41.9 Anxiety disorder, unspecified; F31.9 Bipolar disorder, unspecified; F17.210 Nicotine dependence, cigarettes, uncomplicated; F19.90 Other psychoactive substance use, unspecified, uncomplicated
CPT/HCPCS: 69209; 99282; Z7502; Z7610

== ENCOUNTER 2021-05-27 16:20 | Emergency (ER) | payer MEDICAID ==
[~2021-05-27] VITALS: Ht 162.6 cm; Wt 79.5 kg
[2021-05-27 16:26] VITALS: BP 151/91
== END 2021-05-27 18:34 | disposition home or self-care (01) ==
LOC: EMS 16:21
DX: H60.92 Unspecified otitis externa, left ear (principal); H60.12 Cellulitis of left external ear; F17.210 Nicotine dependence, cigarettes, uncomplicated; F15.90 Other stimulant use, unspecified, uncomplicated; F31.9 Bipolar disorder, unspecified; F20.9 Schizophrenia, unspecified; G47.00 Insomnia, unspecified
CPT/HCPCS: 99283; Z7502

== ENCOUNTER 2021-06-04 05:00 | Emergency (ER) | payer MEDICAID ==
[~2021-06-04] VITALS: Ht 167.6 cm; Wt 72.7 kg
[2021-06-04 06:08] LABS: BASOPHILS % (AUTO) 0.3 % (0.0-2.0); EOSINOPHILS % (AUTO) 0.6 % (1.0-6.0); HEMATOCRIT 33.7 % (36-46); HEMOGLOBIN 11.2 g/dL (12.0-16.0); LYMPHOCYTES # (AUTO) 1.1 K/uL (1.0-4.8); LYMPHOCYTES % (AUTO) 21.7 % (22.0-44.0); MEAN CORPUSCULAR HEMOGLOBIN 30.5 pg (26.0-34.0); MEAN CORPUSCULAR HGB CONC 33.3 G/dL (31.0-37.0); MEAN CORPUSCULAR VOLUME 91 fL (80-100); MONOCYTES # (AUTO) 0.5 K/uL (0.1-1.0); MONOCYTES % (AUTO) 11.1 % (2.0-9.0); NEUTROPHILS # (AUTO) 3.3 K/uL (1.8-7.7); NEUTROPHILS % (AUTO) 66.3 % (40.0-70.0); PLATELET COUNT (AUTO) 385 K/uL (150-450); RED BLOOD CELL COUNT(AUTO) 3.68 MIL/uL (4.00-5.20); RED CELL DISTRIBUTION WIDTH 14.5 % (11.5-14.5)
[2021-06-04 06:09] LABS: COVID AG,FIA SOURCE NASOPHARYNGEAL
[2021-06-04 06:09] LABS: ANION GAP 9 mmol/L (8-16); CALCIUM, TOTAL 8.9 mg/dL (8.8-10.5); CARBON DIOXIDE 29 mmol/L (22-29); CHLORIDE 103 mmol/L (98-107); CREATININE 0.84 mg/dL (0.60-1.30); GLOMERULAR FILTR. RATE CALC > 60 mL/min (>60); GLUCOSE,RANDOM 89 mg/dL (70-110); POTASSIUM 3.5 mmol/L (3.5-5.1); SODIUM SERUM 141 mmol/L (136-145); UREA NITROGEN, BLOOD 8 mg/dL (7-18)
[2021-06-04 06:14] LABS: ALANINE AMINOTRANSFERASE 33 U/L (12-78); ALBUMIN 3.6 g/dL (3.4-5.0); ALKALINE PHOSPHATASE 86 U/L (46-116); ASPARTATE AMINOTRANSFERASE 26 U/L (15-37); BILIRUBIN,TOTAL 0.2 mg/dL (0.1-1.0); TOTAL PROTEIN, SERUM 7.3 g/dL (6.4-8.2)
[2021-06-04] MEDS ORDERED: DiphenhydrAMINE HCL 50 MG/ML VIAL IM ONE (06:15)
[2021-06-04] MEDS ORDERED: HALOPERIDOL LACTATE 5 MG/ML VIAL IM ONE (06:15)
[2021-06-04] MEDS ORDERED: LORazepam 2 MG/ML VIAL IM ONE (06:15)
[2021-06-04 10:45] VITALS: BP 132/95
[2021-06-04 12:14] LABS: AMPHET/METH SCREEN,URINE POSITIVE (NEGATIVE); BARBITURATE SCREEN, URINE NEGATIVE (NEGATIVE); BENZODIAZEPINES SCREEN,URINE NEGATIVE (NEGATIVE); CANNABINOID SCREEN,URINE POSITIVE (NEGATIVE); COCAINE SCREEN,URINE NEGATIVE (NEGATIVE); METHADONE SCREEN, URINE NEGATIVE (NEGATIVE); OPIATE SCREEN,URINE NEGATIVE (NEGATIVE); PHENCYCLIDINE SCREEN,URINE NEGATIVE (NEGATIVE)
== END 2021-06-04 13:54 | disposition home or self-care (01) ==
LOC: EMS 05:02
DX: F25.1 Schizoaffective disorder, depressive type (principal); F31.9 Bipolar disorder, unspecified; F41.9 Anxiety disorder, unspecified; F15.90 Other stimulant use, unspecified, uncomplicated; F17.210 Nicotine dependence, cigarettes, uncomplicated; Z79.899 Other long term (current) drug therapy; Z20.822 Contact with and (suspected) exposure to COVID-19
CPT/HCPCS: 36415; 80053; 80307; 81025; 85025; 87426; 96372; 99284; G0480; J1200; J1630; J2060

== ENCOUNTER 2021-06-19 09:11 | Emergency (ER) | payer MEDICAID ==
[~2021-06-19] VITALS: Ht 162.6 cm; Wt 72.0 kg
[2021-06-19 09:27] VITALS: BP 131/77
[2021-06-19] MEDS ORDERED: GABAPENTIN 100 MG CAPSULE PO ONE (09:45)
== END 2021-06-19 09:52 | disposition home or self-care (01) ==
LOC: EMS 09:11
DX: F31.9 Bipolar disorder, unspecified (principal); F41.9 Anxiety disorder, unspecified; F17.210 Nicotine dependence, cigarettes, uncomplicated; F12.90 Cannabis use, unspecified, uncomplicated; Z76.0 Encounter for issue of repeat prescription
CPT/HCPCS: 99283

== ENCOUNTER 2021-06-24 15:32 | Inpatient (IN) | payer MEDICAID ==
[~2021-06-24] VITALS: Ht 162.6 cm; Wt 72.3 kg
[2021-06-24] MEDS ORDERED: OLANZapine 5 MG RAPDIS TABLET PO ONE (17:15)
[2021-06-24 17:21] LABS: BASOPHILS % (AUTO) 0.5 % (0.0-2.0); EOSINOPHILS % (AUTO) 4.4 % (1.0-6.0); HEMATOCRIT 33.1 % (36-46); HEMOGLOBIN 11.2 g/dL (12.0-16.0); LYMPHOCYTES # (AUTO) 1.3 K/uL (1.0-4.8); MEAN CORPUSCULAR HEMOGLOBIN 31.2 pg (26.0-34.0); MEAN CORPUSCULAR HGB CONC 33.7 G/dL (31.0-37.0); MEAN CORPUSCULAR VOLUME 93 fL (80-100); MONOCYTES # (AUTO) 0.4 K/uL (0.1-1.0); MONOCYTES % (AUTO) 10.1 % (2.0-9.0); NEUTROPHILS # (AUTO) 1.9 K/uL (1.8-7.7); PLATELET COUNT (AUTO) 311 K/uL (150-450); RED BLOOD CELL COUNT(AUTO) 3.57 MIL/uL (4.00-5.20)
[2021-06-24 17:31] LABS: ANION GAP 5 mmol/L (8-16); CALCIUM, TOTAL 9.1 mg/dL (8.8-10.5); CARBON DIOXIDE 32 mmol/L (22-29); CHLORIDE 109 mmol/L (98-107); CREATININE 0.85 mg/dL (0.60-1.30); GLOMERULAR FILTR. RATE CALC > 60 mL/min (>60); GLUCOSE,RANDOM 97 mg/dL (70-110); POTASSIUM 3.3 mmol/L (3.5-5.1); SODIUM SERUM 146 mmol/L (136-145); UREA NITROGEN, BLOOD 9 mg/dL (7-18)
[2021-06-24 17:37] LABS: ALANINE AMINOTRANSFERASE 26 U/L (12-78); ALBUMIN 2.7 g/dL (3.4-5.0); ALKALINE PHOSPHATASE 75 U/L (46-116); ASPARTATE AMINOTRANSFERASE 17 U/L (15-37); BILIRUBIN,TOTAL 0.1 mg/dL (0.1-1.0); TOTAL PROTEIN, SERUM 5.7 g/dL (6.4-8.2)
[2021-06-24 20:56] LABS: COVID AG,FIA SOURCE NASOPHARYNGEAL
[2021-06-25] MEDS ORDERED: ZOLPIDEM TARTRATE 10 MG TABLET PO PRN (09:00)
[2021-06-25] MEDS ORDERED: HALOPERIDOL 5 MG TABLET ONE (09:02)
[2021-06-25] MEDS ORDERED: LORazepam 2 MG TABLET ONE (09:02)
[2021-06-25] MEDS: HALOPERIDOL 5 MG TABLET PO PRN (09:05)
[2021-06-25] MEDS: LORazepam 2 MG TABLET PO PRN (09:05)
[2021-06-26 00:38] LABS: CHOLESTEROL 150 mg/dL (131-200); HDL CHOLESTEROL 50 mg/dL (40-60); LDL CHOL (CALC.) 83 mg/dL (0-130); TRIGLYCERIDES 84 mg/dL (15-150)
[2021-06-26] MEDS: HALOPERIDOL 5 MG TABLET PO PRN ×2 (08:17→16:49)
[2021-06-26] MEDS: LORazepam 2 MG TABLET PO PRN ×2 (08:17→16:49)
[2021-06-26 08:23] LABS: BILIRUBIN,URINE NEGATIVE (NEGATIVE); GLUCOSE, URINE (UA) NEGATIVE (NEGATIVE); KETONES,URINE NEGATIVE (NEGATIVE); LEUKOCYTE ESTERASE ,URINE NEGATIVE (NEGATIVE); NITRATE,URINE NEGATIVE (NEGATIVE); OCCULT BLOOD,URINE NEGATIVE (NEGATIVE); PH,URINE 7.5 (5.0-8.0); PROTEIN,URINE NEGATIVE (NEGATIVE); UROBILINOGEN,URINE 0.2 mg/dL (<=1.0)
[2021-06-26 08:29] LABS: AMPHET/METH SCREEN,URINE POSITIVE (NEGATIVE); BARBITURATE SCREEN, URINE NEGATIVE (NEGATIVE); BENZODIAZEPINES SCREEN,URINE NEGATIVE (NEGATIVE); CANNABINOID SCREEN,URINE POSITIVE (NEGATIVE); COCAINE SCREEN,URINE NEGATIVE (NEGATIVE); METHADONE SCREEN, URINE NEGATIVE (NEGATIVE); OPIATE SCREEN,URINE NEGATIVE (NEGATIVE)
[2021-06-26 08:30] LABS: PHENCYCLIDINE SCREEN,URINE NEGATIVE (NEGATIVE)
[2021-06-26 08:40] LABS: APPEARANCE,URINE SLIGHTLY CLOUDY (CLEAR)
[2021-06-26 10:05] VITALS: BP 125/92
[2021-06-26] MEDS: NICOTINE 21 MG/24 HOUR PATCH TD SCH (13:59)
[2021-06-26 16:00] VITALS: BP 124/76
[2021-06-27] MEDS: HALOPERIDOL 5 MG TABLET PO PRN ×2 (07:49→14:53)
[2021-06-27] MEDS: NICOTINE 21 MG/24 HOUR PATCH TD SCH (07:49)
[2021-06-27] MEDS: LORazepam 2 MG TABLET PO PRN ×2 (07:49→14:53)
[2021-06-27] MEDS: SERTRALINE HCL 100 MG TABLET PO SCH (13:17)
[2021-06-27 16:53] VITALS: BP 135/90
[2021-06-27] MEDS ORDERED: OLANZapine 7.5 MG TABLET PO SCH (21:00)
[2021-06-27] MEDS ORDERED: CloNIDine HCL 0.1 MG TABLET PO PRN (22:15)
[2021-06-27] MEDS ORDERED: BACITRACIN 28 GM OINTMENT TP PRN (22:15)
[2021-06-27] MEDS ORDERED: DOCUSATE SODIUM 100 MG CAPSULE PO PRN (22:15)
[2021-06-27] MEDS ORDERED: ALBUTEROL SULFATE HFA 90 MCG/PUFF 8 GM INHALER IH PRN (22:15)
[2021-06-27] MEDS ORDERED: MAG HYDROX/AL HYDROX/SIMETH ES 30 ML SUSPENSION UDCUP PO PRN (22:15)
[2021-06-27] MEDS ORDERED: PETROLATUM,WHITE 28 GM JELLY TP PRN (22:15)
[2021-06-27] MEDS ORDERED: BENZOCAINE/MENTHOL LOZENGE PO PRN (22:15)
[2021-06-27] MEDS ORDERED: ACETAMINOPHEN 325 MG TABLET PO PRN (22:15)
[2021-06-27] MEDS ORDERED: IBUPROFEN 600 MG TABLET PO PRN (22:15)
[2021-06-27] MEDS ORDERED: ONDANSETRON HCL 4 MG TABLET PO PRN (22:15)
[2021-06-27] MEDS ORDERED: MAGNESIUM HYDROXIDE SUSPENSION 30 ML UDCUP PO PRN (22:15)
[2021-06-27] MEDS ORDERED: LOPERAMIDE HCL 2 MG CAPSULE PO PRN (22:15)
[2021-06-27] MEDS ORDERED: OMEPRAZOLE 20 MG CAPSULE PO PRN (22:15)
[2021-06-28 08:52] VITALS: BP 106/73
[2021-06-28] MEDS: NICOTINE 21 MG/24 HOUR PATCH TD SCH (10:02)
[2021-06-28] MEDS: LORazepam 2 MG TABLET PO PRN (10:02)
[2021-06-28] MEDS: SERTRALINE HCL 100 MG TABLET PO SCH (10:02)
[2021-06-28] MEDS: HALOPERIDOL 5 MG TABLET PO PRN (10:02)
[2021-06-28] MEDS ORDERED: OLAN7.5T22 PO (14:35)
== END 2021-06-28 17:27 | disposition home or self-care (01) | DRG 750 ==
LOC: EMS 15:34 → 3EC 06-26 09:26
PROVIDERS: ADMIT Psychiatry & Neurology Psychiatry; ATTEND Psychiatry & Neurology Psychiatry
DX: F25.9 Schizoaffective disorder, unspecified (principal); E87.0 Hyperosmolality and hypernatremia; R45.851 Suicidal ideations; E86.0 Dehydration; E87.6 Hypokalemia; F41.9 Anxiety disorder, unspecified; G47.00 Insomnia, unspecified; R03.0 Elevated blood-pressure reading, without diagnosis of hypertension; Z20.822 Contact with and (suspected) exposure to COVID-19; F31.9 Bipolar disorder, unspecified; F15.10 Other stimulant abuse, uncomplicated; F17.200 Nicotine dependence, unspecified, uncomplicated; Z71.6 Tobacco abuse counseling; Z91.51 Personal history of suicidal behavior; Z72.89 Other problems related to lifestyle; Z71.51 Drug abuse counseling and surveillance of drug abuser; Z71.41 Alcohol abuse counseling and surveillance of alcoholic
CPT/HCPCS: 80053; 80061; 81003; 85025; 99285; G0480

== ENCOUNTER 2021-07-07 02:31 | Inpatient (IN) | payer MEDICAID ==
[~2021-07-07] VITALS: Ht 162.6 cm; Wt 79.5 kg
[~2021-07-07 02:31] MED LIST changes: -HYD50 PO; -NAPR-1025 PO; +OLAN7.5T22 PO
[2021-07-07] MEDS ORDERED: MIDAZOLAM HCL 5 MG/ML VIAL IM ONE (02:45)
[2021-07-07] MEDS ORDERED: OLANZapine 5 MG RAPDIS TABLET PO PRN (03:30)
[2021-07-07] MEDS ORDERED: ZOLPIDEM TARTRATE 10 MG TABLET PO PRN (03:30)
[2021-07-07] MEDS ORDERED: LORazepam 2 MG TABLET PO PRN (03:30)
[2021-07-07 04:40] LABS: COVID AG,FIA SOURCE NASOPHARYNGEAL
[2021-07-07 05:00] LABS: BASOPHILS % (AUTO) 0.4 % (0.0-2.0); EOSINOPHILS % (AUTO) 0.4 % (1.0-6.0); HEMATOCRIT 37.1 % (36-46); HEMOGLOBIN 12.5 g/dL (12.0-16.0); LYMPHOCYTES # (AUTO) 0.9 K/uL (1.0-4.8); LYMPHOCYTES % (AUTO) 17.4 % (22.0-44.0); MEAN CORPUSCULAR HEMOGLOBIN 30.6 pg (26.0-34.0); MEAN CORPUSCULAR HGB CONC 33.6 G/dL (31.0-37.0); MEAN CORPUSCULAR VOLUME 91 fL (80-100); MONOCYTES # (AUTO) 0.5 K/uL (0.1-1.0); MONOCYTES % (AUTO) 10.3 % (2.0-9.0); NEUTROPHILS # (AUTO) 3.6 K/uL (1.8-7.7); NEUTROPHILS % (AUTO) 71.5 % (40.0-70.0); PLATELET COUNT (AUTO) 281 K/uL (150-450); RED BLOOD CELL COUNT(AUTO) 4.08 MIL/uL (4.00-5.20); RED CELL DISTRIBUTION WIDTH 14.8 % (11.5-14.5)
[2021-07-07 05:09] LABS: ANION GAP 5 mmol/L (8-16); CALCIUM, TOTAL 8.5 mg/dL (8.8-10.5); CARBON DIOXIDE 30 mmol/L (22-29); CHLORIDE 107 mmol/L (98-107); CREATININE 0.72 mg/dL (0.60-1.30); GLOMERULAR FILTR. RATE CALC > 60 mL/min (>60); GLUCOSE,RANDOM 94 mg/dL (70-110); POTASSIUM 3.5 mmol/L (3.5-5.1); SODIUM SERUM 142 mmol/L (136-145); UREA NITROGEN, BLOOD 7 mg/dL (7-18)
[2021-07-07 05:21] LABS: ALANINE AMINOTRANSFERASE 51 U/L (12-78); ALBUMIN 3.2 g/dL (3.4-5.0); ALKALINE PHOSPHATASE 90 U/L (46-116); ASPARTATE AMINOTRANSFERASE 59 U/L (15-37); BILIRUBIN,TOTAL 0.1 mg/dL (0.1-1.0); HCG,QUANTITATIVE < 1 mIU/mL (0-6); TOTAL PROTEIN, SERUM 6.8 g/dL (6.4-8.2)
[2021-07-07] MEDS ORDERED: ONDANSETRON HCL 4 MG/2 ML VIAL IVP PRN (05:30)
[2021-07-07] MEDS ORDERED: ACETAMINOPHEN 325 MG TABLET PO PRN ×2 (05:30→09:00)
[2021-07-07] MEDS ORDERED: LORazepam 2 MG TABLET PO ONE (05:45)
[2021-07-07] MEDS ORDERED: OLANZapine 5 MG RAPDIS TABLET PO ONE (05:45)
[2021-07-07] MEDS ORDERED: DiphenhydrAMINE HCL 50 MG/ML VIAL IM ONE (06:30)
[2021-07-07 07:56] VITALS: BP 133/71
[2021-07-07] MEDS ORDERED: NICOTINE 14 MG/24 HOUR PATCH TD PRN (09:00)
[2021-07-07] MEDS ORDERED: ALBUTEROL SULFATE HFA 90 MCG/PUFF 8 GM INHALER IH PRN (09:00)
[2021-07-07] MEDS ORDERED: MAG HYDROX/AL HYDROX/SIMETH ES 30 ML SUSPENSION UDCUP PO PRN (09:00)
[2021-07-07] MEDS ORDERED: CloNIDine HCL 0.1 MG TABLET PO PRN (09:00)
[2021-07-07] MEDS ORDERED: LOPERAMIDE HCL 2 MG CAPSULE PO PRN (09:00)
[2021-07-07] MEDS ORDERED: ONDANSETRON HCL 4 MG TABLET PO PRN (09:00)
[2021-07-07] MEDS ORDERED: PETROLATUM,WHITE 28 GM JELLY TP PRN (09:00)
[2021-07-07] MEDS ORDERED: DOCUSATE SODIUM 100 MG CAPSULE PO PRN (09:00)
[2021-07-07] MEDS ORDERED: GuaiFENesin/D-METHORPHAN [SUGAR-FREE] 200-20MG/10 ML SYRUP UDCUP PO PRN (09:00)
[2021-07-07] MEDS ORDERED: MAGNESIUM HYDROXIDE SUSPENSION 30 ML UDCUP PO PRN (09:00)
[2021-07-07] MEDS ORDERED: IBUPROFEN 400 MG TABLET PO PRN (09:00)
[2021-07-07 12:01] VITALS: BP 139/99
[2021-07-07 16:07] VITALS: BP 146/84
[2021-07-07] MEDS: ALPRAZolam 0.25 MG TABLET PO PRN (16:55)
[2021-07-07 19:15] VITALS: BP 137/73
[2021-07-07 23:00] VITALS: BP 120/60
[2021-07-08 05:30] VITALS: BP 136/84
[2021-07-08] MEDS: ALPRAZolam 0.25 MG TABLET PO PRN ×2 (07:46→17:16)
[2021-07-08 08:10] VITALS: BP 130/63
[2021-07-08 15:53] VITALS: BP 143/79
[2021-07-08 20:11] VITALS: BP 112/61
[2021-07-09] MEDS: ALPRAZolam 0.25 MG TABLET PO PRN ×3 (01:49→18:24)
[2021-07-09 05:36] VITALS: BP 120/63
[2021-07-09 08:02] VITALS: BP 127/78
[2021-07-09] MEDS ORDERED: HALOPERIDOL 5 MG TABLET PO ONE (16:00)
[2021-07-09 16:04] VITALS: BP 139/82
[2021-07-09] MEDS: OLANZapine 10 MG TABLET PO SCH (19:58)
[2021-07-09] MEDS: CIPROFLOXACIN HCL 0.2%/HYDROCORT 1% 10 ML OTIC SUSPENSION AU SCH (19:59)
[2021-07-09 20:06] VITALS: BP 124/69
[2021-07-09] MEDS ORDERED: OLANZapine 10 MG TABLET PO SCH (21:00)
[2021-07-10] MEDS: ALPRAZolam 0.25 MG TABLET PO PRN ×2 (05:25→14:19)
[2021-07-10 05:39] VITALS: BP 112/63
[2021-07-10 08:02] VITALS: BP 126/84
[2021-07-10] MEDS: CIPROFLOXACIN HCL 0.2%/HYDROCORT 1% 10 ML OTIC SUSPENSION AU SCH ×2 (09:36→20:37)
[2021-07-10 15:43] VITALS: BP 132/92
[2021-07-10 19:38] VITALS: BP 109/62
[2021-07-10] MEDS: OLANZapine 10 MG TABLET PO SCH (20:37)
[2021-07-11 05:42] VITALS: BP 109/56
[2021-07-11] MEDS: CIPROFLOXACIN HCL 0.2%/HYDROCORT 1% 10 ML OTIC SUSPENSION AU SCH ×2 (08:14→20:18)
[2021-07-11] MEDS: ALPRAZolam 0.25 MG TABLET PO PRN ×2 (08:14→15:44)
[2021-07-11 08:15] VITALS: BP 97/60
[2021-07-11 15:45] VITALS: BP 102/58
[2021-07-11] MEDS: OLANZapine 10 MG TABLET PO SCH (20:18)
[2021-07-11 20:26] VITALS: BP 110/62
[2021-07-12] MEDS: ALPRAZolam 0.25 MG TABLET PO PRN ×2 (03:07→12:37)
[2021-07-12 05:40] VITALS: BP 128/59
[2021-07-12 08:18] VITALS: BP 131/80
[2021-07-12] MEDS ORDERED: GADOTERATE MEGLUMINE 10 MMOL/20 ML VIAL IVP ONE (08:19)
[2021-07-12] MEDS: CIPROFLOXACIN HCL 0.2%/HYDROCORT 1% 10 ML OTIC SUSPENSION AU SCH (09:05)
== END 2021-07-12 14:00 | disposition left against medical advice (07) | DRG 137 ==
LOC: EMS 02:32 → 3EC 04:00 → 6N 04:00 → UNDOADMIN 04:00 → 6N 08:15
PROVIDERS: ADMIT Internal Medicine; ATTEND Internal Medicine
DX: U07.1 COVID-19 (principal); R45.851 Suicidal ideations; E44.0 Moderate protein-calorie malnutrition; F25.9 Schizoaffective disorder, unspecified; H60.90 Unspecified otitis externa, unspecified ear; F19.10 Other psychoactive substance abuse, uncomplicated; G47.00 Insomnia, unspecified; Z53.29 Procedure and treatment not carried out because of patient's decision for other reasons; F99 Mental disorder, not otherwise specified; Z68.30 Body mass index [BMI] 30.0-30.9, adult
CPT/HCPCS: 70480; 70543; 80053; 84702; 85025; 87081; 99285; G0480; J1200; J2250; Q0162; Q9967

== ENCOUNTER 2021-07-23 07:36 | Emergency (ER) | payer MEDICAID ==
[~2021-07-23] VITALS: Ht 162.6 cm; Wt 68.2 kg
[2021-07-23 07:58] VITALS: BP 158/84
[2021-07-23] MEDS ORDERED: LORazepam 1 MG TABLET PO ONE (10:45)
[2021-07-23] MEDS ORDERED: HALOPERIDOL 5 MG TABLET PO ONE (10:45)
== END 2021-07-23 11:14 | disposition home or self-care (01) ==
LOC: EMS 07:38
DX: F20.9 Schizophrenia, unspecified (principal); F15.90 Other stimulant use, unspecified, uncomplicated; Z79.899 Other long term (current) drug therapy
CPT/HCPCS: 99284; Z7502; Z7610

== ENCOUNTER 2021-07-25 06:35 | Inpatient (IN) | payer MEDICAID ==
[~2021-07-25] VITALS: Ht 162.6 cm; Wt 68.6 kg
[2021-07-25] MEDS ORDERED: GABA-583 PO (06:48)
[2021-07-25] MEDS ORDERED: LORazepam 2 MG/ML VIAL IM ONE (10:15)
[2021-07-25] MEDS ORDERED: HALOPERIDOL LACTATE 5 MG/ML VIAL IM ONE (10:15)
[2021-07-25] MEDS ORDERED: ZOLPIDEM TARTRATE 10 MG TABLET PO PRN (10:30)
[2021-07-25 10:38] LABS: BASOPHILS % (AUTO) 0.7 % (0.0-2.0); EOSINOPHILS % (AUTO) 2.7 % (1.0-6.0); HEMATOCRIT 36.2 % (36-46); LYMPHOCYTES # (AUTO) 1.5 K/uL (1.0-4.8); LYMPHOCYTES % (AUTO) 37.6 % (22.0-44.0); MEAN CORPUSCULAR HEMOGLOBIN 30.5 pg (26.0-34.0); MEAN CORPUSCULAR HGB CONC 33.2 G/dL (31.0-37.0); MEAN CORPUSCULAR VOLUME 92 fL (80-100); MONOCYTES # (AUTO) 0.4 K/uL (0.1-1.0); MONOCYTES % (AUTO) 10.9 % (2.0-9.0); NEUTROPHILS # (AUTO) 1.9 K/uL (1.8-7.7); NEUTROPHILS % (AUTO) 48.1 % (40.0-70.0); PLATELET COUNT (AUTO) 406 K/uL (150-450); RED BLOOD CELL COUNT(AUTO) 3.94 MIL/uL (4.00-5.20); RED CELL DISTRIBUTION WIDTH 14.8 % (11.5-14.5)
[2021-07-25 10:55] LABS: ALANINE AMINOTRANSFERASE 36 U/L (12-78); ALBUMIN 3.4 g/dL (3.4-5.0); ALKALINE PHOSPHATASE 81 U/L (46-116); ANION GAP 8 mmol/L (8-16); ASPARTATE AMINOTRANSFERASE 21 U/L (15-37); BILIRUBIN,TOTAL 0.2 mg/dL (0.1-1.0); CALCIUM, TOTAL 9.2 mg/dL (8.8-10.5); CARBON DIOXIDE 32 mmol/L (22-29); CHLORIDE 105 mmol/L (98-107); CREATININE 0.79 mg/dL (0.60-1.30); GLOMERULAR FILTR. RATE CALC > 60 mL/min (>60); GLUCOSE,RANDOM 114 mg/dL (70-110); HCG,QUANTITATIVE 3 mIU/mL (0-6); SODIUM SERUM 145 mmol/L (136-145); TOTAL PROTEIN, SERUM 7.1 g/dL (6.4-8.2); UREA NITROGEN, BLOOD 14 mg/dL (7-18)
[2021-07-25 11:04] LABS: POTASSIUM 2.9 mmol/L (3.5-5.1)
[2021-07-25] MEDS ORDERED: GABA-1181 PO (11:27)
[2021-07-25] MEDS ORDERED: POTASSIUM CHLORIDE 20 MEQ ER TABLET PO ONE ×3 (11:30→21:00)
[2021-07-25 14:57] LABS: COVID AG,FIA SOURCE NASAL SWAB
[2021-07-25] MEDS ORDERED: INFLUENZA VIRUS VACCINE QVS 2021-22 (6MO+)/PF 60 MCG/0.5 ML SYRINGE IM. ONE (20:45)
[2021-07-25] MEDS: HALOPERIDOL 5 MG TABLET PO PRN (20:46)
[2021-07-25 20:52] VITALS: BP 118/77
[2021-07-25] MEDS ORDERED: ALBUTEROL SULFATE HFA 90 MCG/PUFF 8 GM INHALER IH PRN (21:00)
[2021-07-25] MEDS ORDERED: CloNIDine HCL 0.1 MG TABLET PO PRN (21:00)
[2021-07-25] MEDS ORDERED: BENZOCAINE/MENTHOL LOZENGE PO PRN (21:00)
[2021-07-25] MEDS ORDERED: IBUPROFEN 600 MG TABLET PO PRN (21:00)
[2021-07-25] MEDS ORDERED: OMEPRAZOLE 20 MG CAPSULE PO PRN (21:00)
[2021-07-25] MEDS ORDERED: MAG HYDROX/AL HYDROX/SIMETH ES 30 ML SUSPENSION UDCUP PO PRN (21:00)
[2021-07-25] MEDS ORDERED: MAGNESIUM HYDROXIDE SUSPENSION 30 ML UDCUP PO PRN (21:00)
[2021-07-25] MEDS: NICOTINE 21 MG/24 HOUR PATCH TD SCH (21:00)
[2021-07-25] MEDS ORDERED: LOPERAMIDE HCL 2 MG CAPSULE PO PRN (21:00)
[2021-07-25] MEDS ORDERED: DOCUSATE SODIUM 100 MG CAPSULE PO PRN (21:00)
[2021-07-25] MEDS ORDERED: BACITRACIN 28 GM OINTMENT TP PRN (21:00)
[2021-07-25] MEDS ORDERED: ONDANSETRON HCL 4 MG TABLET PO PRN (21:00)
[2021-07-25] MEDS ORDERED: PETROLATUM,WHITE 28 GM JELLY TP PRN (21:00)
[2021-07-25] MEDS ORDERED: ACETAMINOPHEN 325 MG TABLET PO PRN (21:00)
[2021-07-26] MEDS: DIVALPROEX SODIUM 500 MG DR TABLET PO SCH ×2 (07:58→16:09)
[2021-07-26] MEDS: HALOPERIDOL 5 MG TABLET PO PRN (07:59)
[2021-07-26] MEDS: NICOTINE 21 MG/24 HOUR PATCH TD SCH (07:59)
[2021-07-26] MEDS: GABAPENTIN 300 MG CAPSULE PO SCH ×3 (07:59→16:09)
[2021-07-26 08:45] VITALS: BP 136/83
[2021-07-26 12:32] LABS: ANION GAP 2 mmol/L (8-16); CALCIUM, TOTAL 8.6 mg/dL (8.8-10.5); CARBON DIOXIDE 33 mmol/L (22-29); CHLORIDE 109 mmol/L (98-107); CREATININE 0.77 mg/dL (0.60-1.30); GLOMERULAR FILTR. RATE CALC > 60 mL/min (>60); GLUCOSE,RANDOM 73 mg/dL (70-110); POTASSIUM 4.3 mmol/L (3.5-5.1); SODIUM SERUM 144 mmol/L (136-145); UREA NITROGEN, BLOOD 9 mg/dL (7-18)
[2021-07-26 18:46] VITALS: BP 129/74
[2021-07-26] MEDS: OLANZapine 7.5 MG TABLET PO SCH (20:14)
[2021-07-27 08:00] VITALS: BP 126/61
[2021-07-27] MEDS: HALOPERIDOL 5 MG TABLET PO PRN (08:10)
[2021-07-27] MEDS: GABAPENTIN 300 MG CAPSULE PO SCH ×3 (08:10→15:52)
[2021-07-27] MEDS: DIVALPROEX SODIUM 500 MG DR TABLET PO SCH ×2 (08:10→15:53)
[2021-07-27] MEDS: NICOTINE 21 MG/24 HOUR PATCH TD SCH (08:12)
[2021-07-27 16:44] VITALS: BP 115/73
[2021-07-27] MEDS: OLANZapine 7.5 MG TABLET PO SCH (20:23)
[2021-07-28 08:00] VITALS: BP 97/65
[2021-07-28] MEDS: GABAPENTIN 300 MG CAPSULE PO SCH ×3 (08:41→15:51)
[2021-07-28] MEDS: DIVALPROEX SODIUM 500 MG DR TABLET PO SCH ×2 (08:41→15:52)
[2021-07-28] MEDS: NICOTINE 21 MG/24 HOUR PATCH TD SCH (08:41)
[2021-07-28] MEDS: HALOPERIDOL 5 MG TABLET PO PRN (12:24)
[2021-07-28] MEDS: LORazepam 2 MG TABLET PO PRN (12:24)
[2021-07-28 16:48] VITALS: BP 128/78
[2021-07-28] MEDS: OLANZapine 7.5 MG TABLET PO SCH (20:30)
[2021-07-29 08:00] VITALS: BP 96/61
[2021-07-29] MEDS: NICOTINE 21 MG/24 HOUR PATCH TD SCH (09:00)
[2021-07-29] MEDS: GABAPENTIN 300 MG CAPSULE PO SCH ×3 (09:16→16:32)
[2021-07-29] MEDS: DIVALPROEX SODIUM 500 MG DR TABLET PO SCH ×2 (09:16→16:33)
[2021-07-29] MEDS: HALOPERIDOL 5 MG TABLET PO PRN ×2 (13:11→16:33)
[2021-07-29] MEDS: LORazepam 2 MG TABLET PO PRN ×2 (14:21→16:33)
[2021-07-29] MEDS: MUPIROCIN CALCIUM 2% 22 GM OINTMENT NASAL SCH (16:33)
[2021-07-29 16:56] VITALS: BP 111/69
[2021-07-29] MEDS: OLANZapine 7.5 MG TABLET PO SCH (21:17)
[2021-07-30] MEDS: NICOTINE 21 MG/24 HOUR PATCH TD SCH (09:00)
[2021-07-30] MEDS: MUPIROCIN CALCIUM 2% 22 GM OINTMENT NASAL SCH (09:48)
[2021-07-30] MEDS: GABAPENTIN 300 MG CAPSULE PO SCH (09:48)
[2021-07-30] MEDS: DIVALPROEX SODIUM 500 MG DR TABLET PO SCH (09:48)
[2021-07-30] MEDS ORDERED: DIVA-112 PO (10:46)
== END 2021-07-30 11:25 | disposition home or self-care (01) | DRG 750 ==
LOC: EMS 06:35 → 3EC 18:23
PROVIDERS: ADMIT Psychiatry & Neurology Psychiatry; ATTEND Psychiatry & Neurology Psychiatry
DX: F25.1 Schizoaffective disorder, depressive type (principal); R45.851 Suicidal ideations; F15.10 Other stimulant abuse, uncomplicated; F41.9 Anxiety disorder, unspecified; G47.00 Insomnia, unspecified; E87.6 Hypokalemia; Z20.822 Contact with and (suspected) exposure to COVID-19; Z72.0 Tobacco use; Z71.6 Tobacco abuse counseling; Z72.89 Other problems related to lifestyle; Z71.41 Alcohol abuse counseling and surveillance of alcoholic
CPT/HCPCS: 80048; 80053; 84132; 84702; 85025; 87081; 99285; G0480; J1630; J2060

== ENCOUNTER 2021-08-05 05:05 | Inpatient (IN) | payer MEDICAID ==
[~2021-08-05] VITALS: Ht 162.6 cm; Wt 69.9 kg
[~2021-08-05 05:05] MED LIST changes: +DIVA-112 PO; +GABA-1181 PO; -SERT-162 PO
[2021-08-05 05:54] LABS: BASOPHILS % (AUTO) 0.8 % (0.0-2.0); EOSINOPHILS % (AUTO) 5.4 % (1.0-6.0); HEMATOCRIT 34.8 % (36-46); HEMOGLOBIN 11.5 g/dL (12.0-16.0); LYMPHOCYTES # (AUTO) 1.5 K/uL (1.0-4.8); MEAN CORPUSCULAR HEMOGLOBIN 30.8 pg (26.0-34.0); MEAN CORPUSCULAR HGB CONC 32.9 G/dL (31.0-37.0); MEAN CORPUSCULAR VOLUME 94 fL (80-100); MONOCYTES # (AUTO) 0.5 K/uL (0.1-1.0); MONOCYTES % (AUTO) 13.4 % (2.0-9.0); NEUTROPHILS # (AUTO) 1.5 K/uL (1.8-7.7); NEUTROPHILS % (AUTO) 39.4 % (40.0-70.0); PLATELET COUNT (AUTO) 260 K/uL (150-450); RED BLOOD CELL COUNT(AUTO) 3.72 MIL/uL (4.00-5.20); RED CELL DISTRIBUTION WIDTH 15.2 % (11.5-14.5)
[2021-08-05 06:00] LABS: ANION GAP 2 mmol/L (8-16); CALCIUM, TOTAL 8.4 mg/dL (8.8-10.5); CARBON DIOXIDE 32 mmol/L (22-29); CHLORIDE 109 mmol/L (98-107); GLOMERULAR FILTR. RATE CALC > 60 mL/min (>60); GLUCOSE,RANDOM 84 mg/dL (70-110); POTASSIUM 3.5 mmol/L (3.5-5.1); SODIUM SERUM 143 mmol/L (136-145); UREA NITROGEN, BLOOD 9 mg/dL (7-18)
[2021-08-05] MEDS ORDERED: HALOPERIDOL 5 MG TABLET PO ONE (06:00)
[2021-08-05] MEDS ORDERED: LORazepam 2 MG TABLET PO ONE (06:00)
[2021-08-05 06:12] LABS: ALANINE AMINOTRANSFERASE 113 U/L (12-78); ALBUMIN 2.7 g/dL (3.4-5.0); ALKALINE PHOSPHATASE 71 U/L (46-116); ASPARTATE AMINOTRANSFERASE 53 U/L (15-37); BILIRUBIN,TOTAL 0.1 mg/dL (0.1-1.0); HCG,QUANTITATIVE 1 mIU/mL (0-6); TOTAL PROTEIN, SERUM 5.9 g/dL (6.4-8.2)
[2021-08-05] MEDS ORDERED: HALOPERIDOL 5 MG TABLET PO PRN (06:30)
[2021-08-05] MEDS ORDERED: ZOLPIDEM TARTRATE 10 MG TABLET PO PRN (06:30)
[2021-08-05 06:48] LABS: COVID AG,FIA SOURCE NASOPHARYNGEAL
[2021-08-05 09:59] VITALS: BP 117/69
[2021-08-05] MEDS ORDERED: INFLUENZA VIRUS VACCINE QVS 2021-22 (6MO+)/PF 60 MCG/0.5 ML SYRINGE IM. ONE (10:30)
[2021-08-05 16:20] VITALS: BP 106/62
[2021-08-05] MEDS: DIVALPROEX SODIUM 500 MG DR TABLET PO SCH (17:08)
[2021-08-05] MEDS: GABAPENTIN 300 MG CAPSULE PO SCH (17:08)
[2021-08-05] MEDS: LORazepam 2 MG TABLET PO PRN (17:10)
[2021-08-05] MEDS: OLANZapine 7.5 MG TABLET PO SCH (20:12)
[2021-08-06 00:03] VITALS: BP 105/60
[2021-08-06] MEDS ORDERED: CloNIDine HCL 0.1 MG TABLET PO PRN (07:15)
[2021-08-06] MEDS ORDERED: DOCUSATE SODIUM 100 MG CAPSULE PO PRN (07:15)
[2021-08-06] MEDS ORDERED: ONDANSETRON HCL 4 MG TABLET PO PRN (07:15)
[2021-08-06] MEDS ORDERED: ACETAMINOPHEN 325 MG TABLET PO PRN (07:15)
[2021-08-06] MEDS ORDERED: IBUPROFEN 600 MG TABLET PO PRN (07:15)
[2021-08-06] MEDS ORDERED: BACITRACIN 28 GM OINTMENT TP PRN (07:15)
[2021-08-06] MEDS ORDERED: OMEPRAZOLE 20 MG CAPSULE PO PRN (07:15)
[2021-08-06] MEDS ORDERED: LOPERAMIDE HCL 2 MG CAPSULE PO PRN (07:15)
[2021-08-06] MEDS ORDERED: MAG HYDROX/AL HYDROX/SIMETH ES 30 ML SUSPENSION UDCUP PO PRN (07:15)
[2021-08-06] MEDS ORDERED: ALBUTEROL SULFATE HFA 90 MCG/PUFF 8 GM INHALER IH PRN (07:15)
[2021-08-06] MEDS ORDERED: PETROLATUM,WHITE 28 GM JELLY TP PRN (07:15)
[2021-08-06] MEDS ORDERED: BENZOCAINE/MENTHOL LOZENGE PO PRN (07:15)
[2021-08-06] MEDS ORDERED: MAGNESIUM HYDROXIDE SUSPENSION 30 ML UDCUP PO PRN (07:15)
[2021-08-06 07:31] LABS: CHOL/HDL RATIO 2.8 (3.9-5.7); FREE T4 (FREE THYROXINE) 0.82 ng/dL (0.76-1.46); THYROID STIMULATING HORMONE 0.39 uIU/mL (0.36-3.74)
[2021-08-06 07:42] LABS: HEMOGLOBIN A1C 5.5 % (3.8-5.6)
[2021-08-06 08:00] VITALS: BP 121/67
[2021-08-06] MEDS: DIVALPROEX SODIUM 500 MG DR TABLET PO SCH ×2 (09:12→16:28)
[2021-08-06] MEDS: GABAPENTIN 300 MG CAPSULE PO SCH ×3 (09:12→16:28)
[2021-08-06 16:02] VITALS: BP 100/67
[2021-08-06] MEDS: LORazepam 2 MG TABLET PO PRN (16:28)
[2021-08-06] MEDS: OLANZapine 7.5 MG TABLET PO SCH (20:33)
[2021-08-07 05:39] VITALS: BP 119/74
[2021-08-07 08:06] VITALS: BP 117/81
[2021-08-07] MEDS: GABAPENTIN 300 MG CAPSULE PO SCH ×2 (08:59→12:25)
[2021-08-07] MEDS: DIVALPROEX SODIUM 500 MG DR TABLET PO SCH (08:59)
[2021-08-07] MEDS: LORazepam 2 MG TABLET PO PRN (12:35)
== END 2021-08-07 14:30 | disposition home or self-care (01) | DRG 750 ==
LOC: EMS 05:05 → B2S 05:45
PROVIDERS: ADMIT Psychiatry & Neurology Psychiatry; ATTEND Psychiatry & Neurology Psychiatry
DX: F25.1 Schizoaffective disorder, depressive type (principal); R45.851 Suicidal ideations; E87.6 Hypokalemia; F15.10 Other stimulant abuse, uncomplicated; F41.9 Anxiety disorder, unspecified; G47.00 Insomnia, unspecified; Z72.0 Tobacco use; Z72.89 Other problems related to lifestyle; Z71.6 Tobacco abuse counseling
CPT/HCPCS: 80053; 80061; 83036; 84439; 84443; 84702; 85025; 99285; G0480

== ENCOUNTER 2021-08-20 23:07 | Emergency (ER) | payer MEDICAID ==
[~2021-08-20] VITALS: Ht 162.6 cm; Wt 71.4 kg
[2021-08-21] MEDS ORDERED: HALOPERIDOL LACTATE 5 MG/ML VIAL IM ONE
[2021-08-21] MEDS ORDERED: DiphenhydrAMINE HCL 50 MG/ML VIAL IM ONE
[2021-08-21] MEDS ORDERED: LORazepam 2 MG/ML VIAL IM ONE
[2021-08-21 00:39] VITALS: BP 129/84
[2021-08-21 01:13] LABS: BASOPHILS % (AUTO) 0.8 % (0.0-2.0); EOSINOPHILS % (AUTO) 0.2 % (1.0-6.0); HEMATOCRIT 34.8 % (36-46); HEMOGLOBIN 11.6 g/dL (12.0-16.0); LYMPHOCYTES # (AUTO) 1.2 K/uL (1.0-4.8); LYMPHOCYTES % (AUTO) 20.4 % (22.0-44.0); MEAN CORPUSCULAR HEMOGLOBIN 30.4 pg (26.0-34.0); MEAN CORPUSCULAR HGB CONC 33.3 G/dL (31.0-37.0); MEAN CORPUSCULAR VOLUME 91 fL (80-100); MONOCYTES # (AUTO) 0.4 K/uL (0.1-1.0); MONOCYTES % (AUTO) 7.4 % (2.0-9.0); NEUTROPHILS # (AUTO) 4.1 K/uL (1.8-7.7); NEUTROPHILS % (AUTO) 71.2 % (40.0-70.0); PLATELET COUNT (AUTO) 379 K/uL (150-450); RED BLOOD CELL COUNT(AUTO) 3.81 MIL/uL (4.00-5.20); RED CELL DISTRIBUTION WIDTH 16.4 % (11.5-14.5)
[2021-08-21 01:21] LABS: ANION GAP 14 mmol/L (8-16); CALCIUM, TOTAL 8.5 mg/dL (8.8-10.5); CARBON DIOXIDE 23 mmol/L (22-29); CHLORIDE 102 mmol/L (98-107); CREATININE 0.75 mg/dL (0.60-1.30); GLOMERULAR FILTR. RATE CALC > 60 mL/min (>60); GLUCOSE,RANDOM 71 mg/dL (70-110); POTASSIUM 3.6 mmol/L (3.5-5.1); SODIUM SERUM 139 mmol/L (136-145); UREA NITROGEN, BLOOD 10 mg/dL (7-18)
[2021-08-21 01:33] LABS: ALANINE AMINOTRANSFERASE 26 U/L (12-78); ALBUMIN 3.6 g/dL (3.4-5.0); ALKALINE PHOSPHATASE 90 U/L (46-116); ASPARTATE AMINOTRANSFERASE 27 U/L (15-37); BILIRUBIN,TOTAL 0.5 mg/dL (0.1-1.0); HCG,QUANTITATIVE < 1 mIU/mL (0-6); TOTAL PROTEIN, SERUM 7.5 g/dL (6.4-8.2)
[2021-08-21] MEDS ORDERED: LORazepam 1 MG TABLET PO ONE (05:30)
== END 2021-08-21 06:22 | disposition home or self-care (01) ==
LOC: EMS 23:10
DX: F20.9 Schizophrenia, unspecified (principal); F32.9 Major depressive disorder, single episode, unspecified; F41.9 Anxiety disorder, unspecified
CPT/HCPCS: 80053; 84702; 85025; 96372; 99284; G0480; J1200; J1630; J2060

== ENCOUNTER 2021-08-21 21:42 | Inpatient (IN) | payer MEDICAID ==
[~2021-08-21] VITALS: Ht 162.6 cm; Wt 65.3 kg
[2021-08-21 22:08] LABS: COVID AG,FIA SOURCE NASAL SWAB
[2021-08-21] MEDS ORDERED: ZOLPIDEM TARTRATE 10 MG TABLET PO PRN (22:15)
[2021-08-21 22:27] LABS: BASOPHILS % (AUTO) 0.8 % (0.0-2.0); EOSINOPHILS % (AUTO) 0.5 % (1.0-6.0); HEMATOCRIT 34.6 % (36-46); HEMOGLOBIN 11.6 g/dL (12.0-16.0); LYMPHOCYTES % (AUTO) 21.2 % (22.0-44.0); MEAN CORPUSCULAR HEMOGLOBIN 30.8 pg (26.0-34.0); MEAN CORPUSCULAR HGB CONC 33.4 G/dL (31.0-37.0); MEAN CORPUSCULAR VOLUME 92 fL (80-100); MONOCYTES # (AUTO) 0.4 K/uL (0.1-1.0); MONOCYTES % (AUTO) 8.7 % (2.0-9.0); NEUTROPHILS # (AUTO) 3.3 K/uL (1.8-7.7); NEUTROPHILS % (AUTO) 68.8 % (40.0-70.0); PLATELET COUNT (AUTO) 380 K/uL (150-450); RED BLOOD CELL COUNT(AUTO) 3.75 MIL/uL (4.00-5.20); RED CELL DISTRIBUTION WIDTH 16.2 % (11.5-14.5)
[2021-08-21] MEDS: LORazepam 2 MG TABLET PO PRN (22:30)
[2021-08-21 22:34] LABS: ANION GAP 12 mmol/L (8-16); CALCIUM, TOTAL 8.5 mg/dL (8.8-10.5); CARBON DIOXIDE 26 mmol/L (22-29); CHLORIDE 102 mmol/L (98-107); CREATININE 0.73 mg/dL (0.60-1.30); GLOMERULAR FILTR. RATE CALC > 60 mL/min (>60); GLUCOSE,RANDOM 93 mg/dL (70-110); POTASSIUM 3.5 mmol/L (3.5-5.1); SODIUM SERUM 140 mmol/L (136-145); UREA NITROGEN, BLOOD 13 mg/dL (7-18)
[2021-08-21 22:47] LABS: ALANINE AMINOTRANSFERASE 28 U/L (12-78); ALBUMIN 3.4 g/dL (3.4-5.0); ALKALINE PHOSPHATASE 87 U/L (46-116); ASPARTATE AMINOTRANSFERASE 37 U/L (15-37); BILIRUBIN,TOTAL 0.5 mg/dL (0.1-1.0); HCG,QUANTITATIVE < 1 mIU/mL (0-6); TOTAL PROTEIN, SERUM 7.3 g/dL (6.4-8.2)
[2021-08-22 02:29] VITALS: BP 111/66
[2021-08-22 03:14] VITALS: BP 111/66
[2021-08-22 07:41] LABS: CHOL/HDL RATIO 3.1 (3.9-5.7)
[2021-08-22] MEDS: LORazepam 2 MG TABLET PO PRN ×2 (10:45→17:21)
[2021-08-22] MEDS: HALOPERIDOL 5 MG TABLET PO PRN ×2 (10:46→17:21)
[2021-08-22] MEDS ORDERED: MAGNESIUM HYDROXIDE SUSPENSION 30 ML UDCUP PO PRN (13:45)
[2021-08-22] MEDS ORDERED: PETROLATUM,WHITE 28 GM JELLY TP PRN (13:45)
[2021-08-22] MEDS ORDERED: BENZOCAINE/MENTHOL LOZENGE PO PRN (13:45)
[2021-08-22] MEDS ORDERED: OMEPRAZOLE 20 MG CAPSULE PO PRN (13:45)
[2021-08-22] MEDS ORDERED: DOCUSATE SODIUM 100 MG CAPSULE PO PRN (13:45)
[2021-08-22] MEDS ORDERED: MAG HYDROX/AL HYDROX/SIMETH ES 30 ML SUSPENSION UDCUP PO PRN (13:45)
[2021-08-22] MEDS ORDERED: ONDANSETRON HCL 4 MG TABLET PO PRN (13:45)
[2021-08-22] MEDS ORDERED: CloNIDine HCL 0.1 MG TABLET PO PRN (13:45)
[2021-08-22] MEDS ORDERED: BACITRACIN 28 GM OINTMENT TP PRN (13:45)
[2021-08-22] MEDS ORDERED: ACETAMINOPHEN 325 MG TABLET PO PRN (13:45)
[2021-08-22] MEDS ORDERED: IBUPROFEN 600 MG TABLET PO PRN (13:45)
[2021-08-22] MEDS ORDERED: ALBUTEROL SULFATE HFA 90 MCG/PUFF 8 GM INHALER IH PRN (13:45)
[2021-08-22] MEDS ORDERED: LOPERAMIDE HCL 2 MG CAPSULE PO PRN (13:45)
[2021-08-23] MEDS: DIVALPROEX SODIUM 500 MG DR TABLET PO SCH ×2 (09:09→16:27)
[2021-08-23] MEDS: GABAPENTIN 300 MG CAPSULE PO SCH ×3 (09:09→16:27)
[2021-08-23] MEDS: HALOPERIDOL 5 MG TABLET PO PRN (10:32)
[2021-08-23] MEDS: LORazepam 2 MG TABLET PO PRN (10:32)
[2021-08-23 12:06] VITALS: BP 116/73
[2021-08-23 16:37] VITALS: BP 95/58
[2021-08-23] MEDS: OLANZapine 7.5 MG TABLET PO SCH (20:29)
[2021-08-24] MEDS: GABAPENTIN 300 MG CAPSULE PO SCH ×3 (09:13→16:52)
[2021-08-24 09:32] VITALS: BP 104/73
[2021-08-24] MEDS: DIVALPROEX SODIUM 500 MG DR TABLET PO SCH ×2 (09:49→16:53)
[2021-08-24] MEDS: HALOPERIDOL 5 MG TABLET PO PRN ×2 (12:47→18:30)
[2021-08-24] MEDS: LORazepam 2 MG TABLET PO PRN ×2 (12:47→18:30)
[2021-08-24 16:57] VITALS: BP 105/65
[2021-08-24] MEDS: OLANZapine 7.5 MG TABLET PO SCH (20:36)
[2021-08-25] MEDS: HALOPERIDOL 5 MG TABLET PO PRN ×3 (08:34→18:57)
[2021-08-25] MEDS: DIVALPROEX SODIUM 500 MG DR TABLET PO SCH ×2 (08:34→16:59)
[2021-08-25] MEDS: GABAPENTIN 300 MG CAPSULE PO SCH ×3 (08:34→16:59)
[2021-08-25] MEDS: LORazepam 2 MG TABLET PO PRN ×3 (08:34→18:57)
[2021-08-25 09:18] VITALS: BP 117/61
[2021-08-25 15:17] LABS: APPEARANCE,URINE CLEAR (CLEAR); BILIRUBIN,URINE NEGATIVE (NEGATIVE); GLUCOSE, URINE (UA) NEGATIVE (NEGATIVE); KETONES,URINE TRACE mg/dL (NEGATIVE); LEUKOCYTE ESTERASE ,URINE NEGATIVE (NEGATIVE); NITRATE,URINE NEGATIVE (NEGATIVE); OCCULT BLOOD,URINE TRACE (NEGATIVE); PROTEIN,URINE NEGATIVE (NEGATIVE); UROBILINOGEN,URINE 0.2 mg/dL (<=1.0)
[2021-08-25 15:21] LABS: AMPHET/METH SCREEN,URINE NEGATIVE (NEGATIVE); BARBITURATE SCREEN, URINE NEGATIVE (NEGATIVE); BENZODIAZEPINES SCREEN,URINE NEGATIVE (NEGATIVE); CANNABINOID SCREEN,URINE POSITIVE (NEGATIVE); COCAINE SCREEN,URINE NEGATIVE (NEGATIVE); METHADONE SCREEN, URINE NEGATIVE (NEGATIVE); OPIATE SCREEN,URINE NEGATIVE (NEGATIVE); PHENCYCLIDINE SCREEN,URINE NEGATIVE (NEGATIVE)
[2021-08-25 15:38] LABS: BACTERIA,URINE None Seen /HPF (None Seen); MUCUS,URINE Few LPF (None Seen); RBC,URINE 0-2 /HPF (0-2); SQUAMOUS EPITHELIAL CELL,UR Moderate /LPF (None Seen); WBC,URINE None Seen /HPF (0-5)
[2021-08-25 16:25] VITALS: BP 119/77
[2021-08-25] MEDS: OLANZapine 7.5 MG TABLET PO SCH (20:50)
[2021-08-26 08:49] VITALS: BP 96/62
[2021-08-26] MEDS: GABAPENTIN 300 MG CAPSULE PO SCH ×2 (09:31→13:16)
[2021-08-26] MEDS: DIVALPROEX SODIUM 500 MG DR TABLET PO SCH (09:31)
[2021-08-26] MEDS: LORazepam 2 MG TABLET PO PRN (09:31)
[2021-08-26] MEDS: HALOPERIDOL 5 MG TABLET PO PRN (09:31)
[2021-08-27] MEDS ORDERED: LORA-1000 PO (04:35)
[2021-08-27] MEDS ORDERED: HALO5TAB2 PO (04:35)
[2021-08-27] MEDS ORDERED: SERT-158 PO (04:35)
[2021-08-27] MEDS ORDERED: DIVA-112 PO ×2 (04:35→07:32)
[2021-08-27] MEDS ORDERED: GABA-1216 PO ×2 (04:36→07:32)
[2021-08-27] MEDS ORDERED: OLAN7.5T22 PO (07:32)
== END 2021-08-26 17:25 | disposition home or self-care (01) | DRG 750 ==
LOC: EMS 21:43 → 3EI 08-22 00:33
PROVIDERS: ADMIT Psychiatry & Neurology Psychiatry; ATTEND Psychiatry & Neurology Psychiatry
DX: F25.1 Schizoaffective disorder, depressive type (principal); R45.851 Suicidal ideations; D64.9 Anemia, unspecified; E78.5 Hyperlipidemia, unspecified; F10.10 Alcohol abuse, uncomplicated; F15.10 Other stimulant abuse, uncomplicated; F17.200 Nicotine dependence, unspecified, uncomplicated; F41.9 Anxiety disorder, unspecified; G47.00 Insomnia, unspecified; Y90.6 Blood alcohol level of 120-199 mg/100 ml; F15.11 Other stimulant abuse, in remission; Z20.822 Contact with and (suspected) exposure to COVID-19; F19.10 Other psychoactive substance abuse, uncomplicated
CPT/HCPCS: 80053; 80061; 80307; 81001; 84484; 84702; 84703; 85025; 87081; 87086; 93005; 99285; G0480

== ENCOUNTER 2021-08-27 03:51 | Emergency (ER) | payer MEDICAID ==
[~2021-08-27] VITALS: Ht 162.6 cm; Wt 65.5 kg
[2021-08-27] MEDS ORDERED: HALO5TAB2 PO (04:35)
[2021-08-27] MEDS ORDERED: DIVA-112 PO ×2 (04:35→07:32)
[2021-08-27] MEDS ORDERED: SERT-158 PO (04:35)
[2021-08-27] MEDS ORDERED: LORA-1000 PO (04:35)
[2021-08-27] MEDS ORDERED: GABA-1216 PO ×2 (04:36→07:32)
[2021-08-27 04:57] LABS: BASOPHILS % (AUTO) 0.9 % (0.0-2.0); EOSINOPHILS % (AUTO) 0.9 % (1.0-6.0); HEMATOCRIT 35.9 % (36-46); HEMOGLOBIN 12.1 g/dL (12.0-16.0); LYMPHOCYTES # (AUTO) 1.2 K/uL (1.0-4.8); LYMPHOCYTES % (AUTO) 22.7 % (22.0-44.0); MEAN CORPUSCULAR HEMOGLOBIN 31.8 pg (26.0-34.0); MEAN CORPUSCULAR HGB CONC 33.8 G/dL (31.0-37.0); MEAN CORPUSCULAR VOLUME 94 fL (80-100); MONOCYTES # (AUTO) 0.4 K/uL (0.1-1.0); MONOCYTES % (AUTO) 7.5 % (2.0-9.0); NEUTROPHILS # (AUTO) 3.6 K/uL (1.8-7.7); PLATELET COUNT (AUTO) 336 K/uL (150-450); RED BLOOD CELL COUNT(AUTO) 3.82 MIL/uL (4.00-5.20); RED CELL DISTRIBUTION WIDTH 16.3 % (11.5-14.5)
[2021-08-27 05:05] LABS: ANION GAP 7 mmol/L (8-16); CALCIUM, TOTAL 9.3 mg/dL (8.8-10.5); CARBON DIOXIDE 32 mmol/L (22-29); CHLORIDE 100 mmol/L (98-107); CREATININE 0.64 mg/dL (0.60-1.30); GLOMERULAR FILTR. RATE CALC > 60 mL/min (>60); GLUCOSE,RANDOM 105 mg/dL (70-110); POTASSIUM 4.1 mmol/L (3.5-5.1); SODIUM SERUM 139 mmol/L (136-145); UREA NITROGEN, BLOOD 9 mg/dL (7-18)
[2021-08-27 05:11] LABS: ALANINE AMINOTRANSFERASE 25 U/L (12-78); ALBUMIN 3.6 g/dL (3.4-5.0); ALKALINE PHOSPHATASE 80 U/L (46-116); ASPARTATE AMINOTRANSFERASE 8 U/L (15-37); BILIRUBIN,TOTAL 0.2 mg/dL (0.1-1.0); TOTAL PROTEIN, SERUM 7.9 g/dL (6.4-8.2)
[2021-08-27 05:28] LABS: HCG,QUANTITATIVE < 1 mIU/mL (0-6)
[2021-08-27] MEDS ORDERED: OLANZapine 5 MG TABLET PO ONE (06:15)
[2021-08-27 06:51] VITALS: BP 122/68
[2021-08-27 06:51] LABS: AMPHET/METH SCREEN,URINE POSITIVE (NEGATIVE); BARBITURATE SCREEN, URINE NEGATIVE (NEGATIVE); BENZODIAZEPINES SCREEN,URINE NEGATIVE (NEGATIVE); CANNABINOID SCREEN,URINE POSITIVE (NEGATIVE); COCAINE SCREEN,URINE NEGATIVE (NEGATIVE); METHADONE SCREEN, URINE NEGATIVE (NEGATIVE); OPIATE SCREEN,URINE NEGATIVE (NEGATIVE); PHENCYCLIDINE SCREEN,URINE NEGATIVE (NEGATIVE)
[2021-08-27] MEDS ORDERED: OLAN7.5T22 PO (07:32)
[2021-08-28] MEDS ORDERED: GABA-1181 PO (15:40)
[2021-08-28] MEDS ORDERED: SERT-162 PO (15:40)
== END 2021-08-27 07:44 | disposition home or self-care (01) ==
LOC: EMS 03:56
DX: R45.851 Suicidal ideations (principal); R44.0 Auditory hallucinations; F15.90 Other stimulant use, unspecified, uncomplicated; F41.9 Anxiety disorder, unspecified; F32.9 Major depressive disorder, single episode, unspecified
CPT/HCPCS: 36415; 80053; 80307; 84702; 85025; 99283; G0480

== ENCOUNTER 2021-08-28 15:16 | Emergency (ER) | payer MEDICAID ==
[~2021-08-28] VITALS: Ht 162.6 cm; Wt 65.5 kg
[~2021-08-28 15:16] MED LIST changes: -GABA-1181 PO; +GABA-1216 PO; +HALO5TAB2 PO; +LORA-1000 PO; +SERT-158 PO
[2021-08-28] MEDS ORDERED: OLANZapine 5 MG TABLET PO ONE (15:30)
[2021-08-28] MEDS ORDERED: SERT-162 PO (15:40)
[2021-08-28] MEDS ORDERED: GABA-1181 PO (15:40)
[2021-08-28 16:01] LABS: BASOPHILS % (AUTO) 1.1 % (0.0-2.0); EOSINOPHILS % (AUTO) 1.8 % (1.0-6.0); HEMOGLOBIN 11.6 g/dL (12.0-16.0); LYMPHOCYTES # (AUTO) 1.6 K/uL (1.0-4.8); LYMPHOCYTES % (AUTO) 34.3 % (22.0-44.0); MEAN CORPUSCULAR HEMOGLOBIN 30.8 pg (26.0-34.0); MEAN CORPUSCULAR HGB CONC 33.2 G/dL (31.0-37.0); MEAN CORPUSCULAR VOLUME 93 fL (80-100); MONOCYTES # (AUTO) 0.5 K/uL (0.1-1.0); MONOCYTES % (AUTO) 10.2 % (2.0-9.0); NEUTROPHILS # (AUTO) 2.4 K/uL (1.8-7.7); NEUTROPHILS % (AUTO) 52.6 % (40.0-70.0); PLATELET COUNT (AUTO) 320 K/uL (150-450); RED BLOOD CELL COUNT(AUTO) 3.77 MIL/uL (4.00-5.20); RED CELL DISTRIBUTION WIDTH 16.2 % (11.5-14.5)
[2021-08-28 16:47] LABS: ANION GAP 9 mmol/L (8-16); CALCIUM, TOTAL 8.9 mg/dL (8.8-10.5); CARBON DIOXIDE 29 mmol/L (22-29); CHLORIDE 103 mmol/L (98-107); GLOMERULAR FILTR. RATE CALC > 60 mL/min (>60); GLUCOSE,RANDOM 66 mg/dL (70-110); POTASSIUM 3.5 mmol/L (3.5-5.1); SODIUM SERUM 141 mmol/L (136-145); UREA NITROGEN, BLOOD 8 mg/dL (7-18)
[2021-08-28 16:51] LABS: ALANINE AMINOTRANSFERASE 23 U/L (12-78); ALBUMIN 3.5 g/dL (3.4-5.0); ALKALINE PHOSPHATASE 75 U/L (46-116); ASPARTATE AMINOTRANSFERASE 12 U/L (15-37); BILIRUBIN,TOTAL 0.2 mg/dL (0.1-1.0); TOTAL PROTEIN, SERUM 7.4 g/dL (6.4-8.2)
[2021-08-28] MEDS ORDERED: DIVALPROEX SODIUM 500 MG ER TABLET PO ONE (18:00)
[2021-08-28] MEDS ORDERED: LORazepam 1 MG TABLET PO ONE (18:00)
[2021-08-28 18:26] LABS: GLUCOSE,POINT OF CARE 87 MG/DL (70-110)
[2021-08-28 21:18] LABS: COVID AG,FIA SOURCE NASAL SWAB
[2021-08-28 21:22] LABS: GLUCOSE,POINT OF CARE 73 MG/DL (70-110)
[2021-08-28 22:14] VITALS: BP 125/85
== END 2021-08-28 22:50 | disposition home or self-care (01) ==
LOC: EMS 15:18
DX: F25.9 Schizoaffective disorder, unspecified (principal); F32.9 Major depressive disorder, single episode, unspecified; R45.851 Suicidal ideations; F10.129 Alcohol abuse with intoxication, unspecified; F41.9 Anxiety disorder, unspecified; Z20.822 Contact with and (suspected) exposure to COVID-19; Y90.6 Blood alcohol level of 120-199 mg/100 ml
CPT/HCPCS: 36415; 80053; 82962; 85025; 87426; 99284; G0480

== ENCOUNTER 2021-08-28 23:05 | Outpatient (CLI) | payer MEDICAID ==
[~2021-08-28 23:05] MED LIST changes: +GABA-1181 PO; +SERT-162 PO
[2021-08-28 23:20] VITALS: BP 115/77
[2021-08-29 00:10] VITALS: BP 115/77
[2021-08-29 08:11] VITALS: BP 112/72
[2021-08-29] MEDS ORDERED: OLANZapine 10 MG TABLET PO SCH (09:00)
[2021-08-29] MEDS ORDERED: SERTRALINE HCL 100 MG TABLET PO SCH (09:00)
== END 2021-08-29 09:15 | disposition home or self-care (01) ==
LOC: CSU 23:05
PROVIDERS: ATTEND Psychiatry & Neurology Psychiatry
DX: F25.9 Schizoaffective disorder, unspecified (principal); F25.1 Schizoaffective disorder, depressive type; F15.20 Other stimulant dependence, uncomplicated; F12.20 Cannabis dependence, uncomplicated; F29 Unspecified psychosis not due to a substance or known physiological condition; F39 Unspecified mood [affective] disorder; H93.92 Unspecified disorder of left ear; F25.0 Schizoaffective disorder, bipolar type; F17.200 Nicotine dependence, unspecified, uncomplicated
CPT/HCPCS: 90792; Z7610

== ENCOUNTER 2021-08-31 04:56 | Inpatient (IN) | payer MEDICAID ==
[~2021-08-31] VITALS: Ht 167.6 cm; Wt 70.4 kg
[~2021-08-31 04:56] MED LIST changes: -GABA-1216 PO; -SERT-158 PO
[2021-08-31] MEDS ORDERED: LORazepam 2 MG/ML VIAL IM ONE (05:30)
[2021-08-31] MEDS ORDERED: HALOPERIDOL LACTATE 5 MG/ML VIAL IM ONE ×2 (05:30→05:45)
[2021-08-31] MEDS ORDERED: DiphenhydrAMINE HCL 50 MG/ML VIAL IM ONE (05:45)
[2021-08-31] MEDS ORDERED: ZOLPIDEM TARTRATE 10 MG TABLET PO PRN (06:30)
[2021-08-31 06:57] LABS: COVID AG,FIA SOURCE NASOPHARYNGEAL
[2021-08-31 07:09] LABS: BASOPHILS % (AUTO) 0.6 % (0.0-2.0); EOSINOPHILS % (AUTO) 1.6 % (1.0-6.0); HEMATOCRIT 30.3 % (36-46); HEMOGLOBIN 10.2 g/dL (12.0-16.0); LYMPHOCYTES # (AUTO) 1.5 K/uL (1.0-4.8); LYMPHOCYTES % (AUTO) 30.4 % (22.0-44.0); MEAN CORPUSCULAR HEMOGLOBIN 31.6 pg (26.0-34.0); MEAN CORPUSCULAR HGB CONC 33.6 G/dL (31.0-37.0); MEAN CORPUSCULAR VOLUME 94 fL (80-100); MONOCYTES # (AUTO) 0.6 K/uL (0.1-1.0); MONOCYTES % (AUTO) 13.1 % (2.0-9.0); NEUTROPHILS # (AUTO) 2.7 K/uL (1.8-7.7); NEUTROPHILS % (AUTO) 54.3 % (40.0-70.0); PLATELET COUNT (AUTO) 259 K/uL (150-450); RED BLOOD CELL COUNT(AUTO) 3.22 MIL/uL (4.00-5.20); RED CELL DISTRIBUTION WIDTH 15.5 % (11.5-14.5)
[2021-08-31 07:25] LABS: ANION GAP 5 mmol/L (8-16); CALCIUM, TOTAL 8.3 mg/dL (8.8-10.5); CARBON DIOXIDE 31 mmol/L (22-29); CHLORIDE 106 mmol/L (98-107); CREATININE 0.81 mg/dL (0.60-1.30); GLOMERULAR FILTR. RATE CALC > 60 mL/min (>60); GLUCOSE,RANDOM 94 mg/dL (70-110); POTASSIUM 3.6 mmol/L (3.5-5.1); SODIUM SERUM 142 mmol/L (136-145); UREA NITROGEN, BLOOD 11 mg/dL (7-18)
[2021-08-31 07:30] LABS: ALANINE AMINOTRANSFERASE 17 U/L (12-78); ALBUMIN 3.2 g/dL (3.4-5.0); ALKALINE PHOSPHATASE 73 U/L (46-116); ASPARTATE AMINOTRANSFERASE 16 U/L (15-37); BILIRUBIN,TOTAL 0.3 mg/dL (0.1-1.0); TOTAL PROTEIN, SERUM 6.6 g/dL (6.4-8.2); VALPROIC ACID 68 mcg/mL (50-100)
[2021-08-31 13:42] VITALS: BP 126/72
[2021-08-31] MEDS ORDERED: INFLUENZA VIRUS VACCINE QVS 2021-22 (6MO+)/PF 60 MCG/0.5 ML SYRINGE IM. ONE (13:45)
[2021-08-31] MEDS ORDERED: PNEUMOCOCCAL VACCINE POLYVALENT 0.5 ML VIAL [PPSV23] IM. ONE (13:45)
[2021-08-31 16:23] VITALS: BP 118/64
[2021-08-31] MEDS ORDERED: CloNIDine HCL 0.1 MG TABLET PO PRN (21:45)
[2021-08-31] MEDS ORDERED: MAGNESIUM HYDROXIDE SUSPENSION 30 ML UDCUP PO PRN (21:45)
[2021-08-31] MEDS ORDERED: PETROLATUM,WHITE 28 GM JELLY TP PRN (21:45)
[2021-08-31] MEDS ORDERED: BACITRACIN 28 GM OINTMENT TP PRN (21:45)
[2021-08-31] MEDS ORDERED: ALBUTEROL SULFATE HFA 90 MCG/PUFF 8 GM INHALER IH PRN (21:45)
[2021-08-31] MEDS ORDERED: ACETAMINOPHEN 325 MG TABLET PO PRN (21:45)
[2021-08-31] MEDS ORDERED: ONDANSETRON HCL 4 MG TABLET PO PRN (21:45)
[2021-08-31] MEDS ORDERED: MAG HYDROX/AL HYDROX/SIMETH ES 30 ML SUSPENSION UDCUP PO PRN (21:45)
[2021-08-31] MEDS ORDERED: LOPERAMIDE HCL 2 MG CAPSULE PO PRN (21:45)
[2021-08-31] MEDS ORDERED: BENZOCAINE/MENTHOL LOZENGE PO PRN (21:45)
[2021-08-31] MEDS ORDERED: IBUPROFEN 600 MG TABLET PO PRN (21:45)
[2021-09-01 03:12] VITALS: BP_SYST 112; BP_SYST 121; BP_DIAS 69; BP_DIAS 72
[2021-09-01 08:02] LABS: BASOPHILS % (AUTO) 0.5 % (0.0-2.0); EOSINOPHILS % (AUTO) 4.4 % (1.0-6.0); HEMATOCRIT 34.1 % (36-46); HEMOGLOBIN 11.5 g/dL (12.0-16.0); LYMPHOCYTES # (AUTO) 1.7 K/uL (1.0-4.8); LYMPHOCYTES % (AUTO) 49.1 % (22.0-44.0); MEAN CORPUSCULAR HEMOGLOBIN 31.7 pg (26.0-34.0); MEAN CORPUSCULAR HGB CONC 33.6 G/dL (31.0-37.0); MEAN CORPUSCULAR VOLUME 94 fL (80-100); MONOCYTES # (AUTO) 0.4 K/uL (0.1-1.0); MONOCYTES % (AUTO) 12.4 % (2.0-9.0); NEUTROPHILS # (AUTO) 1.2 K/uL (1.8-7.7); NEUTROPHILS % (AUTO) 33.6 % (40.0-70.0); PLATELET COUNT (AUTO) 298 K/uL (150-450); RED BLOOD CELL COUNT(AUTO) 3.62 MIL/uL (4.00-5.20)
[2021-09-01 08:12] LABS: HEMOGLOBIN A1C 5.4 % (3.8-5.6)
[2021-09-01 08:25] LABS: CHOL/HDL RATIO 3.4 (3.9-5.7); FREE T4 (FREE THYROXINE) 0.79 ng/dL (0.76-1.46); THYROID STIMULATING HORMONE 1.14 uIU/mL (0.36-3.74)
[2021-09-01 08:44] VITALS: BP 100/74
[2021-09-01] MEDS: OMEPRAZOLE 20 MG CAPSULE PO SCH (09:44)
[2021-09-01] MEDS: DOCUSATE SODIUM 100 MG CAPSULE PO SCH (09:44)
[2021-09-01] MEDS: GABAPENTIN 300 MG CAPSULE PO SCH ×3 (09:44→16:07)
[2021-09-01] MEDS: DIVALPROEX SODIUM 500 MG DR TABLET PO SCH ×2 (09:44→16:07)
[2021-09-01] MEDS: LORazepam 2 MG TABLET PO PRN ×2 (09:44→16:07)
[2021-09-01] MEDS: NICOTINE 7 MG/24 HOUR PATCH TD SCH (09:52)
[2021-09-01 16:21] VITALS: BP 123/60
[2021-09-01] MEDS: OLANZapine 7.5 MG TABLET PO SCH (20:47)
[2021-09-02 04:18] VITALS: BP 128/76
[2021-09-02] MEDS: OMEPRAZOLE 20 MG CAPSULE PO SCH (08:48)
[2021-09-02] MEDS: DIVALPROEX SODIUM 500 MG DR TABLET PO SCH ×2 (08:48→16:58)
[2021-09-02] MEDS: DOCUSATE SODIUM 100 MG CAPSULE PO SCH (08:48)
[2021-09-02] MEDS: GABAPENTIN 300 MG CAPSULE PO SCH ×3 (08:48→16:58)
[2021-09-02] MEDS: NICOTINE 7 MG/24 HOUR PATCH TD SCH (08:49)
[2021-09-02 08:50] VITALS: BP 100/63
[2021-09-02 11:25] VITALS: BP 107/71
[2021-09-02] MEDS: LORazepam 2 MG TABLET PO PRN (11:29)
[2021-09-02 16:25] VITALS: BP 110/73
[2021-09-02] MEDS: OLANZapine 7.5 MG TABLET PO SCH (20:09)
[2021-09-03 01:37] VITALS: BP 108/62
[2021-09-03 08:35] VITALS: BP 126/67
[2021-09-03] MEDS: DIVALPROEX SODIUM 500 MG DR TABLET PO SCH ×2 (09:04→16:44)
[2021-09-03] MEDS: GABAPENTIN 300 MG CAPSULE PO SCH ×3 (09:04→16:44)
[2021-09-03] MEDS: DOCUSATE SODIUM 100 MG CAPSULE PO SCH (09:04)
[2021-09-03] MEDS: OMEPRAZOLE 20 MG CAPSULE PO SCH (09:04)
[2021-09-03] MEDS: NICOTINE 7 MG/24 HOUR PATCH TD SCH (09:05)
[2021-09-03] MEDS: LORazepam 2 MG TABLET PO PRN ×2 (09:05→16:44)
[2021-09-03 16:20] VITALS: BP 105/66
[2021-09-03] MEDS: OLANZapine 7.5 MG TABLET PO SCH (20:11)
[2021-09-04 06:25] VITALS: BP 110/74
[2021-09-04 08:27] VITALS: BP 133/80
[2021-09-04] MEDS: LORazepam 2 MG TABLET PO PRN (09:29)
[2021-09-04] MEDS: DOCUSATE SODIUM 100 MG CAPSULE PO SCH (09:33)
[2021-09-04] MEDS: OMEPRAZOLE 20 MG CAPSULE PO SCH (10:12)
[2021-09-04] MEDS: NICOTINE 7 MG/24 HOUR PATCH TD SCH (10:13)
[2021-09-04] MEDS: GABAPENTIN 300 MG CAPSULE PO SCH ×3 (10:20→16:37)
[2021-09-04] MEDS: DIVALPROEX SODIUM 500 MG DR TABLET PO SCH ×2 (10:21→16:36)
[2021-09-04 16:12] VITALS: BP 105/63
[2021-09-04] MEDS: HALOPERIDOL 5 MG TABLET PO PRN (17:11)
[2021-09-04] MEDS: OLANZapine 7.5 MG TABLET PO SCH (20:36)
[2021-09-05 06:56] VITALS: BP 106/70
[2021-09-05 08:34] VITALS: BP 110/64
[2021-09-05] MEDS: NICOTINE 7 MG/24 HOUR PATCH TD SCH (09:10)
[2021-09-05] MEDS: DOCUSATE SODIUM 100 MG CAPSULE PO SCH (09:11)
[2021-09-05] MEDS: LORazepam 2 MG TABLET PO PRN (09:11)
[2021-09-05] MEDS: DIVALPROEX SODIUM 500 MG DR TABLET PO SCH ×2 (09:11→16:34)
[2021-09-05] MEDS: GABAPENTIN 300 MG CAPSULE PO SCH ×3 (09:11→16:35)
[2021-09-05] MEDS: OMEPRAZOLE 20 MG CAPSULE PO SCH (09:11)
[2021-09-05 11:26] LABS: GLUCOMETER DEV NAME(LOC) POC.BV
[2021-09-05] MEDS: HALOPERIDOL 5 MG TABLET PO PRN (16:16)
[2021-09-05 16:27] VITALS: BP 128/73
[2021-09-05] MEDS: OLANZapine 7.5 MG TABLET PO SCH (20:32)
[2021-09-06 02:12] VITALS: BP 116/67
[2021-09-06 08:45] VITALS: BP 103/60
[2021-09-06] MEDS: GABAPENTIN 300 MG CAPSULE PO SCH ×2 (08:46→12:30)
[2021-09-06] MEDS: DOCUSATE SODIUM 100 MG CAPSULE PO SCH (08:46)
[2021-09-06] MEDS: OMEPRAZOLE 20 MG CAPSULE PO SCH (08:46)
[2021-09-06] MEDS: DIVALPROEX SODIUM 500 MG DR TABLET PO SCH (08:47)
[2021-09-06] MEDS: NICOTINE 7 MG/24 HOUR PATCH TD SCH (08:48)
[2021-09-06] MEDS: LORazepam 2 MG TABLET PO PRN (09:03)
[2021-09-06] MEDS ORDERED: GABA-1181 PO (12:32)
[2021-09-06] MEDS ORDERED: OLAN7.5T22 PO (12:32)
[2021-09-06] MEDS ORDERED: DIVA-112 PO (12:32)
== END 2021-09-06 16:41 | disposition home or self-care (01) | DRG 750 ==
LOC: EMS 04:57 → B2S 09:20
PROVIDERS: ADMIT Psychiatry & Neurology Psychiatry; ATTEND Psychiatry & Neurology Psychiatry
DX: F25.1 Schizoaffective disorder, depressive type (principal); E78.5 Hyperlipidemia, unspecified; F41.9 Anxiety disorder, unspecified; Z20.822 Contact with and (suspected) exposure to COVID-19; G47.00 Insomnia, unspecified; F15.10 Other stimulant abuse, uncomplicated; Z72.89 Other problems related to lifestyle; Z72.0 Tobacco use; Z71.6 Tobacco abuse counseling
CPT/HCPCS: 80053; 80061; 80164; 83036; 84439; 84443; 84703; 85025; 87081; 99285; G0480; J1200; J1630; J2060

== ENCOUNTER 2021-10-31 02:40 | Inpatient (IN) | payer MEDICAID ==
[~2021-10-31] VITALS: Ht 162.6 cm; Wt 69.6 kg
[~2021-10-31 02:40] MED LIST changes: -HALO5TAB2 PO; -LORA-1000 PO; -SERT-162 PO
[2021-10-31 03:23] LABS: BASOPHILS % (AUTO) 1.1 % (0.0-2.0); EOSINOPHILS % (AUTO) 1.4 % (1.0-6.0); HEMATOCRIT 37.9 % (36-46); HEMOGLOBIN 12.5 g/dL (12.0-16.0); LYMPHOCYTES # (AUTO) 1.8 K/uL (1.0-4.8); LYMPHOCYTES % (AUTO) 31.3 % (22.0-44.0); MEAN CORPUSCULAR HEMOGLOBIN 31.8 pg (26.0-34.0); MEAN CORPUSCULAR HGB CONC 32.9 G/dL (31.0-37.0); MEAN CORPUSCULAR VOLUME 97 fL (80-100); MONOCYTES # (AUTO) 0.4 K/uL (0.1-1.0); MONOCYTES % (AUTO) 7.2 % (2.0-9.0); NEUTROPHILS # (AUTO) 3.4 K/uL (1.8-7.7); PLATELET COUNT (AUTO) 377 K/uL (150-450); RED BLOOD CELL COUNT(AUTO) 3.92 MIL/uL (4.00-5.20); RED CELL DISTRIBUTION WIDTH 13.5 % (11.5-14.5)
[2021-10-31 03:36] LABS: ANION GAP 12 mmol/L (8-16); CARBON DIOXIDE 27 mmol/L (22-29); CHLORIDE 99 mmol/L (98-107); CREATININE 0.96 mg/dL (0.60-1.30); GLOMERULAR FILTR. RATE CALC > 60 mL/min (>60); GLUCOSE,RANDOM 66 mg/dL (70-110); POTASSIUM 3.4 mmol/L (3.5-5.1); SODIUM SERUM 138 mmol/L (136-145); UREA NITROGEN, BLOOD 10 mg/dL (7-18)
[2021-10-31 03:42] LABS: ALANINE AMINOTRANSFERASE 18 U/L (12-78); ALBUMIN 3.6 g/dL (3.4-5.0); ALKALINE PHOSPHATASE 78 U/L (46-116); ASPARTATE AMINOTRANSFERASE 19 U/L (15-37); BILIRUBIN,TOTAL 0.3 mg/dL (0.1-1.0); TOTAL PROTEIN, SERUM 7.8 g/dL (6.4-8.2)
[2021-10-31] MEDS ORDERED: LORazepam 2 MG TABLET PO ONE (05:00)
[2021-10-31] MEDS ORDERED: DIVALPROEX SODIUM 500 MG ER TABLET PO ONE (05:15)
[2021-10-31] MEDS ORDERED: OLANZapine 5 MG TABLET PO ONE (05:15)
[2021-10-31 05:44] LABS: AMPHET/METH SCREEN,URINE POSITIVE (NEGATIVE); BARBITURATE SCREEN, URINE NEGATIVE (NEGATIVE); BENZODIAZEPINES SCREEN,URINE NEGATIVE (NEGATIVE); CANNABINOID SCREEN,URINE POSITIVE (NEGATIVE); COCAINE SCREEN,URINE NEGATIVE (NEGATIVE); METHADONE SCREEN, URINE NEGATIVE (NEGATIVE); OPIATE SCREEN,URINE NEGATIVE (NEGATIVE)
[2021-10-31 05:46] LABS: PHENCYCLIDINE SCREEN,URINE NEGATIVE (NEGATIVE)
[2021-10-31] MEDS ORDERED: ZOLPIDEM TARTRATE 10 MG TABLET PO PRN (07:45)
[2021-10-31] MEDS ORDERED: LORazepam 1 MG TABLET PO ONE (08:00)
[2021-10-31 08:05] LABS: APPEARANCE,URINE CLEAR (CLEAR); BILIRUBIN,URINE NEGATIVE (NEGATIVE); GLUCOSE, URINE (UA) NEGATIVE (NEGATIVE); LEUKOCYTE ESTERASE ,URINE NEGATIVE (NEGATIVE); NITRATE,URINE NEGATIVE (NEGATIVE); OCCULT BLOOD,URINE NEGATIVE (NEGATIVE); PROTEIN,URINE NEGATIVE (NEGATIVE); SPECIFIC GRAVITIY, URINE 1.012 (1.003-1.030); UROBILINOGEN,URINE <=1.0 mg/dL (<=1.0)
[2021-10-31] MEDS ORDERED: ACETAMINOPHEN 500 MG TABLET PO PRN (15:15)
[2021-10-31 18:22] LABS: COVID AG,FIA SOURCE NASOPHARYNGEAL
[2021-10-31 20:00] VITALS: BP 116/75
[2021-10-31] MEDS ORDERED: NICOTINE 7 MG/24 HOUR PATCH TD PRN (21:00)
[2021-11-01] MEDS ORDERED: LOPERAMIDE HCL 2 MG CAPSULE PO PRN (06:15)
[2021-11-01] MEDS ORDERED: ALBUTEROL SULFATE HFA 90 MCG/PUFF 8 GM INHALER IH PRN (06:15)
[2021-11-01] MEDS ORDERED: IBUPROFEN 400 MG TABLET PO PRN (06:15)
[2021-11-01] MEDS ORDERED: GuaiFENesin/D-METHORPHAN [SUGAR-FREE] 200-20MG/10 ML SYRUP UDCUP PO PRN (06:15)
[2021-11-01] MEDS ORDERED: NICOTINE 14 MG/24 HOUR PATCH TD PRN (06:15)
[2021-11-01] MEDS ORDERED: MAGNESIUM HYDROXIDE SUSPENSION 30 ML UDCUP PO PRN (06:15)
[2021-11-01] MEDS ORDERED: CloNIDine HCL 0.1 MG TABLET PO PRN (06:15)
[2021-11-01] MEDS ORDERED: MAG HYDROX/AL HYDROX/SIMETH ES 30 ML SUSPENSION UDCUP PO PRN (06:15)
[2021-11-01] MEDS ORDERED: DOCUSATE SODIUM 100 MG CAPSULE PO PRN (06:15)
[2021-11-01] MEDS ORDERED: ACETAMINOPHEN 325 MG TABLET PO PRN (06:15)
[2021-11-01] MEDS ORDERED: PETROLATUM,WHITE 28 GM JELLY TP PRN (06:15)
[2021-11-01 06:35] VITALS: BP 125/79
[2021-11-01] MEDS: LORazepam 2 MG TABLET PO PRN ×2 (06:35→12:56)
[2021-11-01 08:00] VITALS: BP 154/84
[2021-11-01] MEDS: DIVALPROEX SODIUM 500 MG DR TABLET PO SCH ×2 (12:01→16:15)
[2021-11-01] MEDS: GABAPENTIN 300 MG CAPSULE PO SCH ×2 (12:01→16:15)
[2021-11-01] MEDS: HALOPERIDOL 5 MG TABLET PO PRN (12:56)
[2021-11-01 16:35] VITALS: BP 99/69
[2021-11-01] MEDS: OLANZapine 7.5 MG TABLET PO SCH (20:17)
[2021-11-02 08:00] VITALS: BP 95/57
[2021-11-02] MEDS: DIVALPROEX SODIUM 500 MG DR TABLET PO SCH ×2 (09:09→17:16)
[2021-11-02] MEDS: GABAPENTIN 300 MG CAPSULE PO SCH ×3 (09:09→17:17)
[2021-11-02] MEDS: HALOPERIDOL 5 MG TABLET PO PRN ×2 (09:47→16:45)
[2021-11-02] MEDS: LORazepam 2 MG TABLET PO PRN ×2 (09:47→16:45)
[2021-11-02 17:05] VITALS: BP 112/61
[2021-11-02] MEDS: OLANZapine 7.5 MG TABLET PO SCH (20:30)
[2021-11-03 08:00] VITALS: BP 118/72
[2021-11-03] MEDS: DIVALPROEX SODIUM 500 MG DR TABLET PO SCH ×2 (08:42→17:00)
[2021-11-03] MEDS: GABAPENTIN 300 MG CAPSULE PO SCH ×3 (08:42→17:00)
[2021-11-03] MEDS: HALOPERIDOL 5 MG TABLET PO PRN (16:15)
[2021-11-03] MEDS: LORazepam 2 MG TABLET PO PRN (16:15)
[2021-11-03 16:43] VITALS: BP 118/71
[2021-11-03] MEDS: OLANZapine 7.5 MG TABLET PO SCH (20:37)
[2021-11-04] MEDS: GABAPENTIN 300 MG CAPSULE PO SCH ×2 (08:35→12:36)
[2021-11-04] MEDS: DIVALPROEX SODIUM 500 MG DR TABLET PO SCH (08:35)
[2021-11-04 09:21] VITALS: BP 113/74
[2021-11-04] MEDS ORDERED: OLAN7.5T22 PO (13:02)
[2021-11-04] MEDS ORDERED: DIVA-112 PO (13:02)
[2021-11-04] MEDS ORDERED: GABA-1181 PO (13:02)
[2021-11-08] MEDS ORDERED: GABAPENTIN 300 MG CAPSULE PO SCH (17:00)
[2021-11-08] MEDS ORDERED: DIVALPROEX SODIUM 500 MG DR TABLET PO SCH (21:00)
[2021-11-08] MEDS ORDERED: OLANZapine 7.5 MG TABLET PO SCH (21:00)
== END 2021-11-04 15:24 | disposition home or self-care (01) | DRG 750 ==
LOC: EMS 02:40 → 3EI 18:40
PROVIDERS: ADMIT Psychiatry & Neurology Child & Adolescent Psychiatry; ATTEND Psychiatry & Neurology Child & Adolescent Psychiatry
DX: F25.0 Schizoaffective disorder, bipolar type (principal); R45.851 Suicidal ideations; Z91.19 Patient's noncompliance with other medical treatment and regimen; F25.1 Schizoaffective disorder, depressive type; F15.10 Other stimulant abuse, uncomplicated; F17.200 Nicotine dependence, unspecified, uncomplicated; G47.00 Insomnia, unspecified; F41.9 Anxiety disorder, unspecified; E78.5 Hyperlipidemia, unspecified; E87.6 Hypokalemia; Z20.822 Contact with and (suspected) exposure to COVID-19; F10.10 Alcohol abuse, uncomplicated; F12.10 Cannabis abuse, uncomplicated; F32.A Depression, unspecified; Y90.9 Presence of alcohol in blood, level not specified; Z79.899 Other long term (current) drug therapy; Z72.89 Other problems related to lifestyle; Z71.41 Alcohol abuse counseling and surveillance of alcoholic; Z71.6 Tobacco abuse counseling
CPT/HCPCS: 80053; 81003; 84132; 85025; 99285; G0480

== ENCOUNTER 2021-11-06 18:39 | Inpatient (IN) | payer MEDICAID ==
[~2021-11-06] VITALS: Ht 157.5 cm; Wt 70.5 kg
[2021-11-06 19:02] LABS: BASOPHILS % (AUTO) 0.6 % (0.0-2.0); EOSINOPHILS % (AUTO) 1.7 % (1.0-6.0); HEMATOCRIT 37.6 % (36-46); HEMOGLOBIN 12.7 g/dL (12.0-16.0); LYMPHOCYTES # (AUTO) 1.6 K/uL (1.0-4.8); LYMPHOCYTES % (AUTO) 27.7 % (22.0-44.0); MEAN CORPUSCULAR HEMOGLOBIN 32.2 pg (26.0-34.0); MEAN CORPUSCULAR HGB CONC 33.8 G/dL (31.0-37.0); MEAN CORPUSCULAR VOLUME 95 fL (80-100); MONOCYTES # (AUTO) 0.8 K/uL (0.1-1.0); NEUTROPHILS # (AUTO) 3.3 K/uL (1.8-7.7); PLATELET COUNT (AUTO) 360 K/uL (150-450); RED BLOOD CELL COUNT(AUTO) 3.94 MIL/uL (4.00-5.20); RED CELL DISTRIBUTION WIDTH 13.5 % (11.5-14.5)
[2021-11-06 19:10] LABS: ANION GAP 13 mmol/L (8-16); CALCIUM, TOTAL 8.9 mg/dL (8.8-10.5); CARBON DIOXIDE 28 mmol/L (22-29); CHLORIDE 100 mmol/L (98-107); GLOMERULAR FILTR. RATE CALC > 60 mL/min (>60); GLUCOSE,RANDOM 82 mg/dL (70-110); POTASSIUM 3.8 mmol/L (3.5-5.1); SODIUM SERUM 141 mmol/L (136-145); UREA NITROGEN, BLOOD 10 mg/dL (7-18)
[2021-11-06 19:22] LABS: ALANINE AMINOTRANSFERASE 16 U/L (12-78); ALBUMIN 3.5 g/dL (3.4-5.0); ALKALINE PHOSPHATASE 81 U/L (46-116); ASPARTATE AMINOTRANSFERASE 16 U/L (15-37); BILIRUBIN,TOTAL 0.2 mg/dL (0.1-1.0); HCG,QUANTITATIVE < 1 mIU/mL (0-6); TOTAL PROTEIN, SERUM 7.6 g/dL (6.4-8.2)
[2021-11-06] MEDS ORDERED: ZOLPIDEM TARTRATE 10 MG TABLET PO PRN (20:00)
[2021-11-06 20:21] LABS: COVID AG,FIA SOURCE NASAL SWAB
[2021-11-06] MEDS: HALOPERIDOL 5 MG TABLET PO PRN (20:37)
[2021-11-06] MEDS: LORazepam 2 MG TABLET PO PRN (20:37)
[2021-11-07] MEDS: LORazepam 2 MG TABLET PO PRN (12:37)
[2021-11-07] MEDS: HALOPERIDOL 5 MG TABLET PO PRN (12:37)
[2021-11-07 20:00] VITALS: BP 124/83
[2021-11-07] MEDS ORDERED: NICOTINE 14 MG/24 HOUR PATCH TD PRN (20:30)
[2021-11-08 08:00] VITALS: BP 100/63
[2021-11-08] MEDS: HALOPERIDOL 5 MG TABLET PO PRN ×2 (09:58→17:44)
[2021-11-08] MEDS: LORazepam 2 MG TABLET PO PRN ×2 (09:58→17:44)
[2021-11-08] MEDS ORDERED: ONDANSETRON HCL 4 MG TABLET PO PRN (10:15)
[2021-11-08] MEDS ORDERED: BENZOCAINE/MENTHOL LOZENGE PO PRN (10:15)
[2021-11-08] MEDS ORDERED: ALBUTEROL SULFATE HFA 90 MCG/PUFF 8 GM INHALER IH PRN (10:15)
[2021-11-08] MEDS ORDERED: PETROLATUM,WHITE 28 GM JELLY TP PRN (10:15)
[2021-11-08] MEDS ORDERED: CloNIDine HCL 0.1 MG TABLET PO PRN (10:15)
[2021-11-08] MEDS ORDERED: MAG HYDROX/AL HYDROX/SIMETH ES 30 ML SUSPENSION UDCUP PO PRN (10:15)
[2021-11-08] MEDS ORDERED: ACETAMINOPHEN 325 MG TABLET PO PRN (10:15)
[2021-11-08] MEDS ORDERED: LOPERAMIDE HCL 2 MG CAPSULE PO PRN (10:15)
[2021-11-08] MEDS ORDERED: BACITRACIN 28 GM OINTMENT TP PRN (10:15)
[2021-11-08] MEDS ORDERED: MAGNESIUM HYDROXIDE SUSPENSION 30 ML UDCUP PO PRN (10:15)
[2021-11-08] MEDS ORDERED: IBUPROFEN 600 MG TABLET PO PRN (10:15)
[2021-11-08] MEDS ORDERED: OMEPRAZOLE 20 MG CAPSULE PO PRN (10:15)
[2021-11-08] MEDS ORDERED: DOCUSATE SODIUM 100 MG CAPSULE PO PRN (10:15)
[2021-11-08 12:27] VITALS: BP 120/68
[2021-11-08] MEDS: GABAPENTIN 300 MG CAPSULE PO SCH (16:11)
[2021-11-08] MEDS: DIVALPROEX SODIUM 500 MG DR TABLET PO SCH (16:11)
[2021-11-08 16:21] VITALS: BP 99/70
[2021-11-08] MEDS: OLANZapine 7.5 MG TABLET PO SCH (20:20)
[2021-11-09] MEDS: GABAPENTIN 300 MG CAPSULE PO SCH ×3 (09:00→16:31)
[2021-11-09] MEDS: DIVALPROEX SODIUM 500 MG DR TABLET PO SCH ×2 (09:00→16:31)
[2021-11-09 09:08] VITALS: BP 120/76
[2021-11-09 16:30] VITALS: BP 117/79
[2021-11-09] MEDS: HALOPERIDOL 5 MG TABLET PO PRN (16:33)
[2021-11-09] MEDS: LORazepam 2 MG TABLET PO PRN (16:33)
[2021-11-09] MEDS: OLANZapine 7.5 MG TABLET PO SCH (20:13)
[2021-11-10] MEDS: DIVALPROEX SODIUM 500 MG DR TABLET PO SCH ×2 (09:00→16:33)
[2021-11-10] MEDS: GABAPENTIN 300 MG CAPSULE PO SCH ×3 (09:00→16:33)
[2021-11-10 09:08] VITALS: BP 91/50
[2021-11-10] MEDS: HALOPERIDOL 5 MG TABLET PO PRN (15:17)
[2021-11-10 16:31] VITALS: BP 110/74
[2021-11-10] MEDS: LORazepam 2 MG TABLET PO PRN (16:31)
[2021-11-10 16:36] VITALS: BP 99/80
[2021-11-10] MEDS: OLANZapine 7.5 MG TABLET PO SCH (20:28)
[2021-11-11 08:15] VITALS: BP 99/80
[2021-11-11] MEDS: DIVALPROEX SODIUM 500 MG DR TABLET PO SCH (08:43)
[2021-11-11] MEDS: GABAPENTIN 300 MG CAPSULE PO SCH ×2 (08:43→13:03)
[2021-11-11] MEDS: LORazepam 2 MG TABLET PO PRN (08:54)
[2021-11-11] MEDS: HALOPERIDOL 5 MG TABLET PO PRN (08:54)
== END 2021-11-11 14:20 | disposition home or self-care (01) | DRG 750 ==
LOC: EMS 18:41 → 3EI 11-07 18:12
PROVIDERS: ADMIT Psychiatry & Neurology Psychiatry; ATTEND Psychiatry & Neurology Psychiatry
DX: F25.1 Schizoaffective disorder, depressive type (principal); R45.851 Suicidal ideations; Z91.14 Patient's other noncompliance with medication regimen; E78.5 Hyperlipidemia, unspecified; F15.10 Other stimulant abuse, uncomplicated; Z20.822 Contact with and (suspected) exposure to COVID-19; F41.9 Anxiety disorder, unspecified; G47.00 Insomnia, unspecified; Z71.6 Tobacco abuse counseling; Z72.0 Tobacco use
CPT/HCPCS: 80053; 84702; 85025; 87081; 99285; G0480

== ENCOUNTER 2021-11-18 08:50 | Inpatient (IN) | payer MEDICAID ==
[~2021-11-18] VITALS: Ht 162.6 cm; Wt 68.2 kg
[2021-11-18 09:42] LABS: BASOPHILS % (AUTO) 0.7 % (0.0-2.0); EOSINOPHILS % (AUTO) 1.6 % (1.0-6.0); HEMATOCRIT 36.2 % (36-46); HEMOGLOBIN 12.1 g/dL (12.0-16.0); LYMPHOCYTES # (AUTO) 1.3 K/uL (1.0-4.8); LYMPHOCYTES % (AUTO) 22.3 % (22.0-44.0); MEAN CORPUSCULAR HGB CONC 33.5 G/dL (31.0-37.0); MEAN CORPUSCULAR VOLUME 96 fL (80-100); MONOCYTES # (AUTO) 0.4 K/uL (0.1-1.0); MONOCYTES % (AUTO) 7.8 % (2.0-9.0); NEUTROPHILS # (AUTO) 3.9 K/uL (1.8-7.7); NEUTROPHILS % (AUTO) 67.6 % (40.0-70.0); PLATELET COUNT (AUTO) 346 K/uL (150-450); RED BLOOD CELL COUNT(AUTO) 3.78 MIL/uL (4.00-5.20); RED CELL DISTRIBUTION WIDTH 13.9 % (11.5-14.5)
[2021-11-18 09:50] LABS: ANION GAP 12 mmol/L (8-16); CALCIUM, TOTAL 9.2 mg/dL (8.8-10.5); CARBON DIOXIDE 25 mmol/L (22-29); CHLORIDE 102 mmol/L (98-107); GLOMERULAR FILTR. RATE CALC > 60 mL/min (>60); GLUCOSE,RANDOM 56 mg/dL (70-110); POTASSIUM 4.2 mmol/L (3.5-5.1); SODIUM SERUM 139 mmol/L (136-145); UREA NITROGEN, BLOOD 9 mg/dL (7-18)
[2021-11-18 09:56] LABS: ALANINE AMINOTRANSFERASE 19 U/L (12-78); ALBUMIN 3.3 g/dL (3.4-5.0); ALKALINE PHOSPHATASE 76 U/L (46-116); ASPARTATE AMINOTRANSFERASE 17 U/L (15-37); BILIRUBIN,TOTAL 0.4 mg/dL (0.1-1.0); TOTAL PROTEIN, SERUM 7.4 g/dL (6.4-8.2)
[2021-11-18] MEDS ORDERED: ZOLPIDEM TARTRATE 10 MG TABLET PO PRN (11:15)
[2021-11-18 11:41] LABS: COVID AG,FIA SOURCE NASAL SWAB
[2021-11-18 13:00] VITALS: BP 129/82
[2021-11-18] MEDS: HALOPERIDOL 5 MG TABLET PO PRN (13:36)
[2021-11-18] MEDS: LORazepam 2 MG TABLET PO PRN (13:37)
[2021-11-18] MEDS: NICOTINE 21 MG/24 HOUR PATCH TD SCH (15:00)
[2021-11-18] MEDS ORDERED: PETROLATUM,WHITE 28 GM JELLY TP PRN (20:30)
[2021-11-18] MEDS ORDERED: BENZOCAINE/MENTHOL LOZENGE PO PRN (20:30)
[2021-11-18] MEDS ORDERED: ALBUTEROL SULFATE HFA 90 MCG/PUFF 8 GM INHALER IH PRN (20:30)
[2021-11-18] MEDS ORDERED: CloNIDine HCL 0.1 MG TABLET PO PRN (20:30)
[2021-11-18] MEDS ORDERED: OMEPRAZOLE 20 MG CAPSULE PO PRN (20:30)
[2021-11-18] MEDS ORDERED: MAG HYDROX/AL HYDROX/SIMETH ES 30 ML SUSPENSION UDCUP PO PRN (20:30)
[2021-11-18] MEDS ORDERED: LOPERAMIDE HCL 2 MG CAPSULE PO PRN (20:30)
[2021-11-18] MEDS ORDERED: MAGNESIUM HYDROXIDE SUSPENSION 30 ML UDCUP PO PRN (20:30)
[2021-11-18] MEDS ORDERED: DOCUSATE SODIUM 100 MG CAPSULE PO PRN (20:30)
[2021-11-18] MEDS ORDERED: IBUPROFEN 600 MG TABLET PO PRN (20:30)
[2021-11-18] MEDS ORDERED: ACETAMINOPHEN 325 MG TABLET PO PRN (20:30)
[2021-11-18] MEDS ORDERED: BACITRACIN 28 GM OINTMENT TP PRN (20:30)
[2021-11-18] MEDS ORDERED: ONDANSETRON HCL 4 MG TABLET PO PRN (20:30)
[2021-11-19 08:00] VITALS: BP 127/72
[2021-11-19] MEDS: HALOPERIDOL 5 MG TABLET PO PRN ×2 (10:06→14:38)
[2021-11-19] MEDS: LORazepam 2 MG TABLET PO PRN ×2 (10:06→14:38)
[2021-11-19] MEDS: NICOTINE 21 MG/24 HOUR PATCH TD SCH (10:06)
[2021-11-19 18:07] VITALS: BP 131/82
[2021-11-20 08:00] VITALS: BP 103/65
[2021-11-20] MEDS: HALOPERIDOL 5 MG TABLET PO PRN ×2 (09:26→15:49)
[2021-11-20] MEDS: NICOTINE 21 MG/24 HOUR PATCH TD SCH (09:26)
[2021-11-20] MEDS: LORazepam 2 MG TABLET PO PRN ×2 (09:26→15:49)
[2021-11-20 16:04] VITALS: BP 107/64
[2021-11-21] MEDS: LORazepam 2 MG TABLET PO PRN ×2 (08:11→13:26)
[2021-11-21] MEDS: HALOPERIDOL 5 MG TABLET PO PRN ×2 (08:11→13:26)
[2021-11-21] MEDS: NICOTINE 21 MG/24 HOUR PATCH TD SCH (08:12)
[2021-11-21 08:21] VITALS: BP 113/64
== END 2021-11-21 15:00 | disposition home or self-care (01) | DRG 750 ==
LOC: EMS 08:50 → 3EC 12:53
PROVIDERS: ADMIT Psychiatry & Neurology Psychiatry; ATTEND Psychiatry & Neurology Psychiatry
DX: F25.9 Schizoaffective disorder, unspecified (principal); D64.9 Anemia, unspecified; E78.5 Hyperlipidemia, unspecified; F15.10 Other stimulant abuse, uncomplicated; F17.200 Nicotine dependence, unspecified, uncomplicated; F32.A Depression, unspecified; F41.9 Anxiety disorder, unspecified; G47.00 Insomnia, unspecified; Z20.822 Contact with and (suspected) exposure to COVID-19; Z71.6 Tobacco abuse counseling
CPT/HCPCS: 80053; 85025; 87081; 99285; G0480

== ENCOUNTER 2022-01-19 21:50 | Inpatient (IN) | payer MEDICAID ==
[~2022-01-19] VITALS: Ht 162.6 cm; Wt 67.8 kg
[2022-01-19 22:39] LABS: EOSINOPHILS % (AUTO) 0.2 % (1.0-6.0); HEMOGLOBIN 12.3 g/dL (12.0-16.0); LYMPHOCYTES # (AUTO) 2.1 K/uL (1.0-4.8); LYMPHOCYTES % (AUTO) 24.3 % (22.0-44.0); MEAN CORPUSCULAR HEMOGLOBIN 30.4 pg (26.0-34.0); MEAN CORPUSCULAR HGB CONC 33.2 G/dL (31.0-37.0); MEAN CORPUSCULAR VOLUME 92 fL (80-100); MONOCYTES # (AUTO) 0.6 K/uL (0.1-1.0); MONOCYTES % (AUTO) 6.3 % (2.0-9.0); NEUTROPHILS % (AUTO) 68.2 % (40.0-70.0); PLATELET COUNT (AUTO) 452 K/uL (150-450); RED BLOOD CELL COUNT(AUTO) 4.05 MIL/uL (4.00-5.20); RED CELL DISTRIBUTION WIDTH 14.1 % (11.5-14.5)
[2022-01-19 22:45] LABS: ANION GAP 15 mmol/L (8-16); CALCIUM, TOTAL 8.7 mg/dL (8.8-10.5); CARBON DIOXIDE 24 mmol/L (22-29); CHLORIDE 100 mmol/L (98-107); CREATININE 0.91 mg/dL (0.60-1.30); GLUCOSE,RANDOM 100 mg/dL (70-110); POTASSIUM 3.9 mmol/L (3.5-5.1); SODIUM SERUM 139 mmol/L (136-145); UREA NITROGEN, BLOOD 14 mg/dL (7-18)
[2022-01-19 22:53] LABS: GLOMERULAR FILTR. RATE CALC > 60 mL/min (>60)
[2022-01-19 22:57] LABS: ALANINE AMINOTRANSFERASE 48 U/L (12-78); ALBUMIN 4.1 g/dL (3.4-5.0); ALKALINE PHOSPHATASE 83 U/L (46-116); ASPARTATE AMINOTRANSFERASE 32 U/L (15-37); BILIRUBIN,TOTAL 0.1 mg/dL (0.1-1.0); HCG,QUANTITATIVE 1 mIU/mL (0-6); TOTAL PROTEIN, SERUM 7.9 g/dL (6.4-8.2)
[2022-01-19] MEDS ORDERED: OLANZapine 5 MG TABLET PO ONE (23:30)
[2022-01-19 23:37] LABS: COVID AG,FIA SOURCE NASOPHARYNGEAL
[2022-01-20] MEDS ORDERED: ZOLPIDEM TARTRATE 10 MG TABLET PO PRN (05:15)
[2022-01-20] MEDS: HALOPERIDOL 5 MG TABLET PO PRN ×2 (05:29→09:29)
[2022-01-20] MEDS: LORazepam 2 MG TABLET PO PRN ×4 (05:29→21:04)
[2022-01-20 23:11] VITALS: BP 134/93
[2022-01-20 23:34] VITALS: BP 134/93
[2022-01-20 23:43] VITALS: BP 134/93
[2022-01-21] MEDS: LORazepam 2 MG TABLET PO PRN ×3 (05:40→14:07)
[2022-01-21] MEDS ORDERED: IBUPROFEN 600 MG TABLET PO PRN (08:00)
[2022-01-21] MEDS ORDERED: ONDANSETRON HCL 4 MG TABLET PO PRN (08:00)
[2022-01-21] MEDS ORDERED: PETROLATUM,WHITE 28 GM JELLY TP PRN (08:00)
[2022-01-21] MEDS ORDERED: BACITRACIN 28 GM OINTMENT TP PRN (08:00)
[2022-01-21] MEDS ORDERED: DOCUSATE SODIUM 100 MG CAPSULE PO PRN (08:00)
[2022-01-21] MEDS ORDERED: ALBUTEROL SULFATE HFA 90 MCG/PUFF 8 GM INHALER IH PRN (08:00)
[2022-01-21] MEDS ORDERED: MAGNESIUM HYDROXIDE SUSPENSION 30 ML UDCUP PO PRN (08:00)
[2022-01-21] MEDS ORDERED: CloNIDine HCL 0.1 MG TABLET PO PRN (08:00)
[2022-01-21] MEDS ORDERED: MAG HYDROX/AL HYDROX/SIMETH ES 30 ML SUSPENSION UDCUP PO PRN (08:00)
[2022-01-21] MEDS ORDERED: ACETAMINOPHEN 325 MG TABLET PO PRN (08:00)
[2022-01-21] MEDS ORDERED: LOPERAMIDE HCL 2 MG CAPSULE PO PRN (08:00)
[2022-01-21] MEDS ORDERED: BENZOCAINE/MENTHOL LOZENGE PO PRN (08:00)
[2022-01-21] MEDS ORDERED: OMEPRAZOLE 20 MG CAPSULE PO PRN (08:00)
[2022-01-21] MEDS: HALOPERIDOL 5 MG TABLET PO PRN ×2 (08:11→12:18)
[2022-01-21 09:36] VITALS: BP 142/94
[2022-01-21 11:00] LABS: APPEARANCE,URINE CLEAR (CLEAR); BILIRUBIN,URINE NEGATIVE (NEGATIVE); GLUCOSE, URINE (UA) NEGATIVE (NEGATIVE); KETONES,URINE NEGATIVE (NEGATIVE); NITRATE,URINE NEGATIVE (NEGATIVE); OCCULT BLOOD,URINE NEGATIVE (NEGATIVE); PROTEIN,URINE NEGATIVE (NEGATIVE); SPECIFIC GRAVITIY, URINE 1.002 (1.003-1.030); UROBILINOGEN,URINE <=1.0 mg/dL (<=1.0)
[2022-01-21 11:24] LABS: AMPHET/METH SCREEN,URINE NEGATIVE (NEGATIVE); BARBITURATE SCREEN, URINE NEGATIVE (NEGATIVE); BENZODIAZEPINES SCREEN,URINE NEGATIVE (NEGATIVE); CANNABINOID SCREEN,URINE NEGATIVE (NEGATIVE); COCAINE SCREEN,URINE NEGATIVE (NEGATIVE); METHADONE SCREEN, URINE NEGATIVE (NEGATIVE); OPIATE SCREEN,URINE NEGATIVE (NEGATIVE)
[2022-01-21 11:25] LABS: PHENCYCLIDINE SCREEN,URINE NEGATIVE (NEGATIVE)
[2022-01-21 11:35] LABS: BACTERIA,URINE None Seen /HPF (None Seen); LEUKOCYTE ESTERASE ,URINE TRACE (NEGATIVE); RBC,URINE None Seen /HPF (0-2); SQUAMOUS EPITHELIAL CELL,UR Rare /LPF (None Seen); WBC,URINE 0-2 /HPF (0-5)
[2022-01-21 16:25] VITALS: BP 120/71
[2022-01-21] MEDS: GABAPENTIN 400 MG CAPSULE PO SCH (16:26)
[2022-01-21] MEDS: DIVALPROEX SODIUM 500 MG DR TABLET PO SCH (16:26)
[2022-01-21] MEDS: OLANZapine 10 MG TABLET PO SCH (20:24)
[2022-01-22] MEDS: LORazepam 2 MG TABLET PO PRN (07:05)
[2022-01-22] MEDS: DIVALPROEX SODIUM 500 MG DR TABLET PO SCH ×2 (08:31→16:03)
[2022-01-22] MEDS: GABAPENTIN 400 MG CAPSULE PO SCH ×3 (08:31→16:03)
[2022-01-22 09:08] VITALS: BP 136/85
[2022-01-22] MEDS: HALOPERIDOL 5 MG TABLET PO PRN ×2 (09:40→16:04)
[2022-01-22 16:12] VITALS: BP 125/80
[2022-01-22] MEDS: OLANZapine 10 MG TABLET PO SCH (20:33)
[2022-01-23] MEDS: LORazepam 2 MG TABLET PO PRN ×3 (06:25→18:00)
[2022-01-23] MEDS: DIVALPROEX SODIUM 500 MG DR TABLET PO SCH ×2 (08:21→16:19)
[2022-01-23] MEDS: GABAPENTIN 400 MG CAPSULE PO SCH ×3 (08:21→16:20)
[2022-01-23] MEDS: HALOPERIDOL 5 MG TABLET PO PRN ×2 (08:22→18:00)
[2022-01-23 08:36] VITALS: BP 112/78
[2022-01-23 16:22] VITALS: BP 115/69
[2022-01-23] MEDS: OLANZapine 10 MG TABLET PO SCH (20:31)
[2022-01-24] MEDS: GABAPENTIN 400 MG CAPSULE PO SCH ×3 (08:05→16:46)
[2022-01-24] MEDS: DIVALPROEX SODIUM 500 MG DR TABLET PO SCH ×2 (08:05→16:46)
[2022-01-24 08:12] VITALS: BP 122/82
[2022-01-24] MEDS: LORazepam 2 MG TABLET PO PRN ×3 (08:14→20:44)
[2022-01-24] MEDS: HALOPERIDOL 5 MG TABLET PO PRN ×2 (11:13→20:44)
[2022-01-24 17:35] VITALS: BP 127/86
[2022-01-24] MEDS: OLANZapine 10 MG TABLET PO SCH (20:10)
[2022-01-25 07:04] LABS: COVID AG,FIA SOURCE NASAL SWAB
[2022-01-25 08:00] VITALS: BP 114/84
[2022-01-25] MEDS: DIVALPROEX SODIUM 500 MG DR TABLET PO SCH (08:27)
[2022-01-25] MEDS: GABAPENTIN 400 MG CAPSULE PO SCH ×2 (08:28→12:37)
[2022-01-25] MEDS: LORazepam 2 MG TABLET PO PRN (08:29)
[2022-01-25] MEDS ORDERED: OLAN7.5T22 PO (12:13)
[2022-01-25] MEDS ORDERED: DIVA-112 PO (12:13)
[2022-01-25] MEDS ORDERED: GABA-1181 PO (12:13)
== END 2022-01-25 15:30 | disposition home or self-care (01) | DRG 750 ==
LOC: EMS 22:11 → 3EI 01-20 21:23
PROVIDERS: ADMIT Psychiatry & Neurology Psychiatry; ATTEND Psychiatry & Neurology Psychiatry
DX: F25.1 Schizoaffective disorder, depressive type (principal); R45.851 Suicidal ideations; E78.5 Hyperlipidemia, unspecified; F15.10 Other stimulant abuse, uncomplicated; F17.200 Nicotine dependence, unspecified, uncomplicated; F41.9 Anxiety disorder, unspecified; G47.00 Insomnia, unspecified; Z20.822 Contact with and (suspected) exposure to COVID-19
CPT/HCPCS: 80053; 80307; 81001; 84702; 85025; 99285; G0480

== ENCOUNTER 2022-01-27 15:59 | Inpatient (IN) | payer MEDICAID ==
[~2022-01-27] VITALS: Ht 165.1 cm; Wt 69.4 kg
[2022-01-27 17:53] LABS: BASOPHILS % (AUTO) 0.6 % (0.0-2.0); EOSINOPHILS % (AUTO) 0.4 % (1.0-6.0); HEMATOCRIT 34.9 % (36-46); HEMOGLOBIN 11.6 g/dL (12.0-16.0); LYMPHOCYTES # (AUTO) 1.9 K/uL (1.0-4.8); LYMPHOCYTES % (AUTO) 25.9 % (22.0-44.0); MEAN CORPUSCULAR HEMOGLOBIN 30.4 pg (26.0-34.0); MEAN CORPUSCULAR HGB CONC 33.3 G/dL (31.0-37.0); MEAN CORPUSCULAR VOLUME 91 fL (80-100); MONOCYTES # (AUTO) 0.8 K/uL (0.1-1.0); NEUTROPHILS # (AUTO) 4.7 K/uL (1.8-7.7); NEUTROPHILS % (AUTO) 62.1 % (40.0-70.0); PLATELET COUNT (AUTO) 365 K/uL (150-450); RED BLOOD CELL COUNT(AUTO) 3.83 MIL/uL (4.00-5.20); RED CELL DISTRIBUTION WIDTH 13.4 % (11.5-14.5)
[2022-01-27 18:11] LABS: ANION GAP 10 mmol/L (8-16); CALCIUM, TOTAL 9.4 mg/dL (8.8-10.5); CARBON DIOXIDE 28 mmol/L (22-29); CHLORIDE 98 mmol/L (98-107); CREATININE 0.79 mg/dL (0.60-1.30); GLUCOSE,RANDOM 80 mg/dL (70-110); POTASSIUM 3.4 mmol/L (3.5-5.1); SODIUM SERUM 136 mmol/L (136-145); UREA NITROGEN, BLOOD 7 mg/dL (7-18)
[2022-01-27 18:12] LABS: GLOMERULAR FILTR. RATE CALC > 60 mL/min (>60)
[2022-01-27 18:17] LABS: ALANINE AMINOTRANSFERASE 20 U/L (12-78); ALBUMIN 3.7 g/dL (3.4-5.0); ALKALINE PHOSPHATASE 84 U/L (46-116); ASPARTATE AMINOTRANSFERASE 16 U/L (15-37); BILIRUBIN,TOTAL 0.5 mg/dL (0.1-1.0); TOTAL PROTEIN, SERUM 7.4 g/dL (6.4-8.2)
[2022-01-27 19:30] LABS: COVID AG,FIA SOURCE NASOPHARYNGEAL
[2022-01-27 19:49] LABS: AMPHET/METH SCREEN,URINE NEGATIVE (NEGATIVE); BARBITURATE SCREEN, URINE NEGATIVE (NEGATIVE); BENZODIAZEPINES SCREEN,URINE NEGATIVE (NEGATIVE); CANNABINOID SCREEN,URINE NEGATIVE (NEGATIVE); COCAINE SCREEN,URINE NEGATIVE (NEGATIVE); METHADONE SCREEN, URINE NEGATIVE (NEGATIVE); OPIATE SCREEN,URINE NEGATIVE (NEGATIVE)
[2022-01-27 19:58] LABS: PHENCYCLIDINE SCREEN,URINE NEGATIVE (NEGATIVE)
[2022-01-27] MEDS: ZOLPIDEM TARTRATE 10 MG TABLET PO PRN (23:56)
[2022-01-27] MEDS: LORazepam 2 MG TABLET PO PRN (23:56)
[2022-01-28 06:52] VITALS: BP 117/86
[2022-01-28 08:29] VITALS: BP 119/81
[2022-01-28] MEDS: HALOPERIDOL 5 MG TABLET PO PRN (13:16)
[2022-01-28] MEDS: LORazepam 2 MG TABLET PO PRN ×2 (13:16→17:56)
[2022-01-28] MEDS ORDERED: CloNIDine HCL 0.1 MG TABLET PO PRN (19:45)
[2022-01-28] MEDS ORDERED: PETROLATUM,WHITE 28 GM JELLY TP PRN (19:45)
[2022-01-28] MEDS ORDERED: ONDANSETRON HCL 4 MG TABLET PO PRN (19:45)
[2022-01-28] MEDS ORDERED: BENZOCAINE/MENTHOL LOZENGE PO PRN (19:45)
[2022-01-28] MEDS ORDERED: MAGNESIUM HYDROXIDE SUSPENSION 30 ML UDCUP PO PRN (19:45)
[2022-01-28] MEDS ORDERED: BACITRACIN 28 GM OINTMENT TP PRN (19:45)
[2022-01-28] MEDS ORDERED: ACETAMINOPHEN 325 MG TABLET PO PRN (19:45)
[2022-01-28] MEDS ORDERED: IBUPROFEN 600 MG TABLET PO PRN (19:45)
[2022-01-28] MEDS ORDERED: ALBUTEROL SULFATE HFA 90 MCG/PUFF 8 GM INHALER IH PRN (19:45)
[2022-01-28] MEDS ORDERED: MAG HYDROX/AL HYDROX/SIMETH ES 30 ML SUSPENSION UDCUP PO PRN (19:45)
[2022-01-28] MEDS ORDERED: LOPERAMIDE HCL 2 MG CAPSULE PO PRN (19:45)
[2022-01-28] MEDS: ZOLPIDEM TARTRATE 10 MG TABLET PO PRN (21:17)
[2022-01-28 22:00] VITALS: BP 122/78
[2022-01-29] MEDS: LORazepam 2 MG TABLET PO PRN ×3 (04:32→13:07)
[2022-01-29] MEDS: OMEPRAZOLE 20 MG CAPSULE PO SCH (08:05)
[2022-01-29] MEDS: DOCUSATE SODIUM 100 MG CAPSULE PO SCH (08:05)
[2022-01-29 09:47] VITALS: BP 107/67
[2022-01-29] MEDS: HALOPERIDOL 5 MG TABLET PO PRN (17:15)
[2022-01-30 00:53] VITALS: BP 108/78
[2022-01-30] MEDS: OMEPRAZOLE 20 MG CAPSULE PO SCH (08:09)
[2022-01-30] MEDS: DOCUSATE SODIUM 100 MG CAPSULE PO SCH (08:09)
[2022-01-30] MEDS: LORazepam 2 MG TABLET PO PRN ×2 (08:09→16:11)
[2022-01-30 08:10] VITALS: BP 100/65
[2022-01-30] MEDS: HALOPERIDOL 5 MG TABLET PO PRN ×2 (09:55→18:15)
[2022-01-31] MEDS: LORazepam 2 MG TABLET PO PRN ×5 (00:22→20:11)
[2022-01-31] MEDS: ZOLPIDEM TARTRATE 10 MG TABLET PO PRN (00:22)
[2022-01-31 04:00] VITALS: BP 110/68
[2022-01-31] MEDS: HALOPERIDOL 5 MG TABLET PO PRN ×3 (04:18→20:10)
[2022-01-31] MEDS: DOCUSATE SODIUM 100 MG CAPSULE PO SCH (08:26)
[2022-01-31] MEDS: OMEPRAZOLE 20 MG CAPSULE PO SCH (08:26)
[2022-01-31 08:28] VITALS: BP 105/71
[2022-01-31] MEDS: MUPIROCIN CALCIUM 2% 22 GM OINTMENT NASAL SCH (17:45)
[2022-01-31] MEDS: OLANZapine 10 MG TABLET PO SCH (20:11)
[2022-02-01 06:11] VITALS: BP 109/68
[2022-02-01 08:17] VITALS: BP 107/67
[2022-02-01] MEDS: OMEPRAZOLE 20 MG CAPSULE PO SCH (08:36)
[2022-02-01] MEDS: DOCUSATE SODIUM 100 MG CAPSULE PO SCH (08:37)
[2022-02-01] MEDS: HALOPERIDOL 5 MG TABLET PO PRN ×2 (08:37→13:15)
[2022-02-01] MEDS: LORazepam 2 MG TABLET PO PRN ×3 (08:37→17:22)
[2022-02-01] MEDS: MUPIROCIN CALCIUM 2% 22 GM OINTMENT NASAL SCH ×2 (08:37→17:16)
[2022-02-01 16:36] VITALS: BP 114/74
[2022-02-01] MEDS: OLANZapine 10 MG TABLET PO SCH (20:47)
[2022-02-01 22:00] VITALS: BP 100/78
[2022-02-02 08:18] VITALS: BP 100/65
[2022-02-02] MEDS: MUPIROCIN CALCIUM 2% 22 GM OINTMENT NASAL SCH ×2 (08:42→16:11)
[2022-02-02] MEDS: LORazepam 2 MG TABLET PO PRN ×2 (08:43→14:05)
[2022-02-02] MEDS: DOCUSATE SODIUM 100 MG CAPSULE PO SCH (08:43)
[2022-02-02] MEDS: HALOPERIDOL 5 MG TABLET PO PRN ×2 (08:43→14:05)
[2022-02-02] MEDS: OMEPRAZOLE 20 MG CAPSULE PO SCH (08:43)
[2022-02-02] MEDS: OLANZapine 10 MG TABLET PO SCH (20:20)
[2022-02-03 05:25] VITALS: BP 108/72
[2022-02-03 08:18] VITALS: BP 100/63
[2022-02-03] MEDS: MUPIROCIN CALCIUM 2% 22 GM OINTMENT NASAL SCH ×2 (09:04→16:00)
[2022-02-03] MEDS: DOCUSATE SODIUM 100 MG CAPSULE PO SCH (09:04)
[2022-02-03] MEDS: HALOPERIDOL 5 MG TABLET PO PRN ×2 (09:04→14:16)
[2022-02-03] MEDS: OMEPRAZOLE 20 MG CAPSULE PO SCH (09:04)
[2022-02-03] MEDS: LORazepam 2 MG TABLET PO PRN ×2 (09:04→14:16)
[2022-02-03] MEDS: OLANZapine 10 MG TABLET PO SCH (20:25)
[2022-02-03 21:21] VITALS: BP 128/79
[2022-02-04 08:10] VITALS: BP 105/64
[2022-02-04] MEDS: DOCUSATE SODIUM 100 MG CAPSULE PO SCH (08:48)
[2022-02-04] MEDS: SERTRALINE HCL 50 MG TABLET PO SCH (08:48)
[2022-02-04] MEDS: OMEPRAZOLE 20 MG CAPSULE PO SCH (08:48)
[2022-02-04] MEDS: MUPIROCIN CALCIUM 2% 22 GM OINTMENT NASAL SCH ×2 (08:49→16:33)
[2022-02-04 10:41] LABS: GLUCOMETER DEV NAME(LOC) POC.BV
[2022-02-04] MEDS: LORazepam 2 MG TABLET PO PRN (10:49)
[2022-02-04] MEDS: HALOPERIDOL 5 MG TABLET PO PRN ×2 (10:49→16:33)
[2022-02-04 20:15] VITALS: BP 105/66
[2022-02-04] MEDS: OLANZapine 10 MG TABLET PO SCH (20:22)
[2022-02-05] MEDS: LORazepam 2 MG TABLET PO PRN ×3 (02:44→14:12)
[2022-02-05] MEDS: ZOLPIDEM TARTRATE 10 MG TABLET PO PRN ×2 (02:45→20:04)
[2022-02-05 08:00] VITALS: BP 114/74
[2022-02-05] MEDS: HALOPERIDOL 5 MG TABLET PO PRN ×2 (08:21→14:12)
[2022-02-05] MEDS: SERTRALINE HCL 50 MG TABLET PO SCH (08:21)
[2022-02-05] MEDS: OMEPRAZOLE 20 MG CAPSULE PO SCH (08:21)
[2022-02-05] MEDS: DOCUSATE SODIUM 100 MG CAPSULE PO SCH (08:21)
[2022-02-05] MEDS: MUPIROCIN CALCIUM 2% 22 GM OINTMENT NASAL SCH ×2 (08:22→16:30)
[2022-02-05 09:15] VITALS: BP 101/61
[2022-02-05] MEDS: PALIPERIDONE 3 MG ER TABLET PO SCH (20:04)
[2022-02-05 20:35] VITALS: BP 106/65
[2022-02-06] MEDS: LORazepam 2 MG TABLET PO PRN ×2 (05:59→14:55)
[2022-02-06 08:36] VITALS: BP 100/60
[2022-02-06] MEDS: HALOPERIDOL 5 MG TABLET PO PRN ×2 (08:36→13:03)
[2022-02-06] MEDS: DOCUSATE SODIUM 100 MG CAPSULE PO SCH (08:36)
[2022-02-06] MEDS: OMEPRAZOLE 20 MG CAPSULE PO SCH (08:36)
[2022-02-06] MEDS: SERTRALINE HCL 50 MG TABLET PO SCH (08:36)
[2022-02-06] MEDS: MUPIROCIN CALCIUM 2% 22 GM OINTMENT NASAL SCH ×2 (08:37→16:27)
[2022-02-06 14:50] VITALS: BP 112/74
[2022-02-06] MEDS: PALIPERIDONE 3 MG ER TABLET PO SCH (20:21)
[2022-02-06 20:35] VITALS: BP 106/66
[2022-02-07] MEDS: ZOLPIDEM TARTRATE 10 MG TABLET PO PRN ×2 (02:17→20:36)
[2022-02-07] MEDS: LORazepam 2 MG TABLET PO PRN (09:28)
[2022-02-07] MEDS: MUPIROCIN CALCIUM 2% 22 GM OINTMENT NASAL SCH ×2 (09:28→16:14)
[2022-02-07] MEDS: OMEPRAZOLE 20 MG CAPSULE PO SCH (09:28)
[2022-02-07] MEDS: HALOPERIDOL 5 MG TABLET PO PRN ×2 (09:28→14:45)
[2022-02-07] MEDS: SERTRALINE HCL 50 MG TABLET PO SCH (09:28)
[2022-02-07] MEDS: DOCUSATE SODIUM 100 MG CAPSULE PO SCH (09:28)
[2022-02-07 17:29] VITALS: BP 105/62
[2022-02-07] MEDS: PALIPERIDONE 3 MG ER TABLET PO SCH (20:00)
[2022-02-07 20:30] VITALS: BP 102/67
[2022-02-08] MEDS: LORazepam 2 MG TABLET PO PRN ×2 (04:57→11:16)
[2022-02-08 08:08] VITALS: BP 105/73
[2022-02-08] MEDS: SERTRALINE HCL 50 MG TABLET PO SCH (09:17)
[2022-02-08] MEDS: DOCUSATE SODIUM 100 MG CAPSULE PO SCH (09:17)
[2022-02-08] MEDS: HALOPERIDOL 5 MG TABLET PO PRN (09:17)
[2022-02-08] MEDS: OMEPRAZOLE 20 MG CAPSULE PO SCH (09:17)
[2022-02-08 20:20] VITALS: BP 121/77
[2022-02-08] MEDS: ZOLPIDEM TARTRATE 10 MG TABLET PO PRN (22:31)
[2022-02-09] MEDS: LORazepam 2 MG TABLET PO PRN (04:47)
[2022-02-09 08:00] VITALS: BP 99/65
[2022-02-09] MEDS: DOCUSATE SODIUM 100 MG CAPSULE PO SCH (08:02)
[2022-02-09] MEDS: HALOPERIDOL 5 MG TABLET PO PRN (08:02)
[2022-02-09] MEDS: OMEPRAZOLE 20 MG CAPSULE PO SCH (08:02)
[2022-02-09] MEDS: SERTRALINE HCL 50 MG TABLET PO SCH (08:02)
[2022-02-09] MEDS ORDERED: SERT-158 PO (10:16)
[2022-02-09] MEDS ORDERED: OLAN10 PO (11:07)
[2022-02-09] MEDS ORDERED: SERT-439 PO (11:07)
== END 2022-02-09 12:00 | disposition home or self-care (01) | DRG 750 ==
LOC: EMS 16:01 → B3A 20:26
PROVIDERS: ADMIT Psychiatry & Neurology Psychiatry; ATTEND Psychiatry & Neurology Psychiatry
DX: F25.1 Schizoaffective disorder, depressive type (principal); R45.851 Suicidal ideations; E78.5 Hyperlipidemia, unspecified; Z20.822 Contact with and (suspected) exposure to COVID-19; F15.10 Other stimulant abuse, uncomplicated; F31.9 Bipolar disorder, unspecified; F41.9 Anxiety disorder, unspecified; G47.00 Insomnia, unspecified; Z72.0 Tobacco use; Z72.89 Other problems related to lifestyle; Z71.6 Tobacco abuse counseling
CPT/HCPCS: 80053; 85025; 87081; 99285; G0480

== ENCOUNTER 2022-10-21 09:11 | Emergency (ER) | payer MEDICAID, OTHER ==
[~2022-10-21] VITALS: Ht 162.6 cm; Wt 72.7 kg
[~2022-10-21 09:11] MED LIST changes: -DIVA-112 PO; -GABA-1181 PO; +OLAN10 PO; -OLAN7.5T22 PO; +SERT-439 PO
[2022-10-21 09:15] VITALS: BP 129/73
== END 2022-10-21 09:51 | disposition home or self-care (01) ==
LOC: EMS 09:11
DX: H92.02 Otalgia, left ear (principal); F41.9 Anxiety disorder, unspecified; F31.9 Bipolar disorder, unspecified; F20.9 Schizophrenia, unspecified; E73.9 Lactose intolerance, unspecified
CPT/HCPCS: 99281; Z7502

== ENCOUNTER 2024-01-20 12:57 | Inpatient (IN) | payer MEDICAID ==
[~2024-01-20] VITALS: Ht 160 cm; Wt 81.0 kg
[2024-01-20 14:19] LABS: BASOPHILS % (AUTO) 0.7 % (0.0-2.0); EOSINOPHILS % (AUTO) 0.7 % (1.0-6.0); HEMATOCRIT 35.6 % (36-46); HEMOGLOBIN 11.5 g/dL (12.0-16.0); LYMPHOCYTES # (AUTO) 1.7 K/uL (1.0-4.8); LYMPHOCYTES % (AUTO) 29.3 % (22.0-44.0); MEAN CORPUSCULAR HEMOGLOBIN 29.6 pg (26.0-34.0); MEAN CORPUSCULAR HGB CONC 32.3 G/dL (31.0-37.0); MEAN CORPUSCULAR VOLUME 91 fL (80-100); MONOCYTES # (AUTO) 0.6 K/uL (0.1-1.0); MONOCYTES % (AUTO) 9.7 % (2.0-9.0); NEUTROPHILS # (AUTO) 3.5 K/uL (1.8-7.7); NEUTROPHILS % (AUTO) 59.6 % (40.0-70.0); PLATELET COUNT (AUTO) 398 K/uL (150-450); RED BLOOD CELL COUNT(AUTO) 3.89 MIL/uL (4.00-5.20); RED CELL DISTRIBUTION WIDTH 13.3 % (11.5-14.5)
[2024-01-20 14:31] LABS: ANION GAP 4 mmol/L (8-16); CALCIUM, TOTAL 9.2 mg/dL (8.8-10.5); CARBON DIOXIDE 33 mmol/L (22-29); CHLORIDE 103 mmol/L (98-107); CREATININE 0.93 mg/dL (0.60-1.30); GLOMERULAR FILTR. RATE CALC > 60 mL/min (>60); GLUCOSE,RANDOM 89 mg/dL (70-110); POTASSIUM 3.9 mmol/L (3.5-5.1); SODIUM SERUM 140 mmol/L (136-145); UREA NITROGEN, BLOOD 11 mg/dL (7-18)
[2024-01-20 14:38] LABS: ALCOHOL, BLOOD (SERUM) < 3 mg/dL (0-10)
[2024-01-20] MEDS: HALOPERIDOL LACTATE 5 MG/ML VIAL IM ONE (15:31)
[2024-01-20] MEDS: DiphenhydrAMINE HCL 50 MG/ML VIAL IM ONE (15:32)
[2024-01-20] MEDS: LORazepam 2 MG/ML VIAL IM ONE (15:32)
[2024-01-20 15:38] LABS: ALCOHOL, URINE DRUG SCREEN NEGATIVE (NEGATIVE); AMPHET/METH SCREEN,URINE POSITIVE (NEGATIVE); BARBITURATE SCREEN, URINE NEGATIVE (NEGATIVE); BENZODIAZEPINES SCREEN,URINE POSITIVE (NEGATIVE); CANNABINOID SCREEN,URINE NEGATIVE (NEGATIVE); COCAINE SCREEN,URINE NEGATIVE (NEGATIVE); METHADONE SCREEN, URINE NEGATIVE (NEGATIVE); OPIATE SCREEN,URINE NEGATIVE (NEGATIVE); PHENCYCLIDINE SCREEN,URINE NEGATIVE (NEGATIVE)
[2024-01-20] MEDS ORDERED: ZOLPIDEM TARTRATE 10 MG TABLET PO PRN (20:15)
[2024-01-20 21:14] LABS: COVID AG,FIA SOURCE NASAL SWAB
[2024-01-20 21:53] LABS: SARS-COV2 (COVID) ANTIGEN,FIA Negative (Negative)
[2024-01-21] MEDS: LORazepam 2 MG TABLET PO PRN (07:29)
[2024-01-21] MEDS: HALOPERIDOL 5 MG TABLET PO PRN (07:29)
[2024-01-22 08:29] VITALS: BP 117/81; PULSE 78; RESP 16; TEMP 97.5
[2024-01-22] MEDS ORDERED: LOPERAMIDE HCL 2 MG CAPSULE PO PRN (12:00)
[2024-01-22] MEDS ORDERED: DOCUSATE SODIUM 100 MG CAPSULE PO PRN (12:00)
[2024-01-22] MEDS ORDERED: IBUPROFEN 600 MG TABLET PO PRN (12:00)
[2024-01-22] MEDS ORDERED: OMEPRAZOLE 20 MG CAPSULE PO PRN (12:00)
[2024-01-22] MEDS ORDERED: BENZOCAINE/MENTHOL LOZENGE PO PRN (12:00)
[2024-01-22] MEDS ORDERED: ALBUTEROL SULFATE HFA 90 MCG/PUFF 8 GM INHALER IH PRN (12:00)
[2024-01-22] MEDS ORDERED: PETROLATUM,WHITE 28 GM JELLY TP PRN (12:00)
[2024-01-22] MEDS ORDERED: ACETAMINOPHEN 325 MG TABLET PO PRN (12:00)
[2024-01-22] MEDS ORDERED: MAGNESIUM HYDROXIDE SUSPENSION 30 ML UDCUP PO PRN (12:00)
[2024-01-22] MEDS ORDERED: BACITRACIN 28 GM OINTMENT TP PRN (12:00)
[2024-01-22] MEDS ORDERED: ONDANSETRON HCL 4 MG TABLET PO PRN (12:00)
[2024-01-22] MEDS ORDERED: MAG HYDROX/ALUMINUM HYD/SIMETH ES 30 ML SUSPENSION UDCUP PO PRN (12:00)
[2024-01-22] MEDS ORDERED: CloNIDine HCL 0.1 MG TABLET PO PRN (12:00)
== END 2024-01-22 13:44 | disposition left against medical advice (07) | DRG 750 ==
LOC: EMS 12:57 → B3A 01-21 13:23
PROVIDERS: ADMIT Psychiatry & Neurology Child & Adolescent Psychiatry; ATTEND Psychiatry & Neurology Child & Adolescent Psychiatry
PROC: GZHZZZZ Group Psychotherapy (ICD-10-PCS; principal; 2024-01-22)
PROC: GZ51ZZZ Individual Psychotherapy, Behavioral (ICD-10-PCS; 2024-01-22)
DX: F25.1 Schizoaffective disorder, depressive type (principal); R45.851 Suicidal ideations; E78.5 Hyperlipidemia, unspecified; F15.10 Other stimulant abuse, uncomplicated; F17.200 Nicotine dependence, unspecified, uncomplicated; F31.9 Bipolar disorder, unspecified; F41.9 Anxiety disorder, unspecified; G47.00 Insomnia, unspecified; Z91.011 Allergy to milk products; Z53.29 Procedure and treatment not carried out because of patient's decision for other reasons
CPT/HCPCS: 80048; 80307; 85025; 99285; G0480; J1200; J1630; J2060